=== PATIENT | female | born 1980 | race Caucasian/White ===

== ENCOUNTER 2016-11-24 00:33 | Emergency (ER) | payer SELFPAY ==
[2016-11-24] MEDS ORDERED: ACETAMINOPHEN 325 MG TAB As Ordered ONE (01:22)
[2016-11-24] MEDS ORDERED: predniSONE 20 MG TAB As Ordered ONE (01:22)
[2016-11-24] MEDS ORDERED: IPRATROPIUM 0.5MG/ALBUTEROL 2.5MG INH SOL UD 3ML (DUONEB)(J7620) As Ordered ONE (01:31)
[2016-11-24] MEDS ORDERED: KETOROLAC 30 MG/ML VIAL (J1885) As Ordered ONE (01:33)
[2016-11-24] MEDS ORDERED: AZITHROMYCIN 250 MG TAB As Ordered ONE (01:56)
--- NOTE | 2016-11-24 03:07 | EDDOCDS ---
Nurse's Notes [facility] Name: Rosario Amin Age: 36 yrs Sex: Female : 1980 Arrival Date: 11/24/2016 Time: 00:33 Bed I2 / M2 Private MD: Diagnosis: Acute sinusitis;Acute bronchitis;Headache-Acute Presentation: 11/24 00:50 Presenting complaint: Patient states: Shortness of breath started this morning. Did not kmg1 use albuterol. Cough productive for pale yellow mucus. Pain in left axilla area which she has had before and was told it's a "muscle spasm." Weak and ill feeling. Suicide/Homicide risk assessment- the patient denies having any suicidal and/or homicidal ideations and does not present with any other emotional, behavioral or mental health complaints. 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 Transition of care: patient was not received from another setting of care. 00:50 Acuity: WERNER Level 3 [facility] [place] Method Of Arrival: Walkin/[place] [facility] [place] Adult Sepsis Screening: The patient does not have new or worsening altered mentation. lf1 Patient's respiratory rate is less than 22. Systolic blood pressure is greater than 100. Patient has a qSOFA score of 0- Negative Sepsis Screen. Triage Assessment: 00:53 General: Appears in no apparent distress, comfortable, Behavior is appropriate for age, kmg1 cooperative, pleasant. Pain: Location: muscles, left axilla and headache Pain currently is 8 out of 10 on a pain scale. Quality of pain is described as aching. Pt Declines HIV testing. EENT: Reports nasal congestion. Respiratory: Onset: The symptoms/episode began/occurred gradually, Airway is patent Respiratory effort is even, unlabored, Respiratory pattern is regular, symmetrical. 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 albuterol sulfate 90 mcg/actuation Inhl HFAA 2 puffs every 4-6 hours (Last dose: Unknown) - PMHx: Anxiety; Depression; Asthma; Migraine Headaches; - PSHx: Tubal ligation; D & C; - Social history: Smoking status: Patient uses tobacco products, light tobacco smoker. No barriers to communication noted, The patient speaks fluent Urdu, Speaks appropriately for age. - : The pt / caregiver states he / she is not on anticoagulants. Home medication list is obtained from the patient. - Exposure Risk Screening:: None identified. - Family history: Not pertinent. Screenin:16 Screening information is obtained from the patient. Fall risk: No risks identified. lf1 Assistance ADL's: requires no assistance with activities of daily living. Abuse/DV Screen: The patient / caregiver reports he/she is: not in a situation that causes fear, pain or injury. Nutritional screening: No deficits noted. Advance Directives: Currently, there is no health care proxy. home support is adequate. Assessment: 01:16 Adult Sepsis Screening: The patient does not have new or worsening altered mentation. lf1 Patient's respiratory rate is less than 22. Systolic blood pressure is greater than 100. Patient has a qSOFA score of 0- Negative Sepsis Screen. General: Appears ill, Behavior is cooperative. Pain: Location: generalized body aches Pain currently is 8 out of 10 on a pain scale. Quality of pain is described as aching. Neurological: Level of Consciousness is awake, alert. EENT: Reports nasal congestion. Cardiovascular: Chest pain is denied. Respiratory: Respiratory effort is even, unlabored, Respiratory pattern is regular, Breath sounds are diminished Reports shortness of breath cough that is pain with cough pain with movement the patient has mild shortness of breath. GI: Denies nausea, vomiting. : No deficits noted. Derm: No deficits noted. Injury Description: No known injury. 02:00 General: Appears in no apparent distress. Neurological: Level of Consciousness is lf1 awake, alert. Respiratory: Respiratory effort is even, unlabored, Reports shortness of breath cough that is. 03:04 General: Appears comfortable, Behavior is cooperative. Pain: Location: achiness in legs lf1 Pain currently is 4 out of 10 on a pain scale. Neurological: Level of Consciousness is awake, alert, Oriented to person, place, time. Cardiovascular: No deficits noted. Respiratory: Respiratory effort is even, unlabored, Reports cough that is. GI: Denies nausea, vomiting. Vital Signs: 00:53 BP 138 / 91; Pulse 106; Resp 18; Temp 99(O); Pulse Ox 100% on R/A; Weight 55.79 kg (R); kmg1 Height 5 ft. 4 in. (162.56 cm) (R); Pain 8/10; 02:20 BP 129 / 73; Pulse 95; Resp 20; Temp 97.2(O); Pulse Ox 100% on R/A; Pain 0/10; jmv 00:53 Body Mass Index 21.11 (55.79 kg, 162.56 cm) km Vitals: 00:53 Log In Time: November 24, 2016 at 00:35. km 01:21 Strep Screen is obtained and tested: Negative, a GATSNEG culture is ordered in [place] [id number] and sent. ED Course: 00:35 Patient visited by Jonna Costa Reg. hs2 00:35 Patient moved to Waiting hs2 00:50 Patient moved to Triage 1 km 00:52 Triage Initiated km 00:53 Kaur Edge PA-C is PHCP. ef1 00:53 Emery Soto DO is Attending Physician. ef1 00:59 Kerri Stallings,YOEL is Primary Nurse. kmg1 00:59 Patient moved to 10 kmg1 01:01 Patient visited by Kaur Edge PA-C. ef1 01:08 Patient moved to I2 / M2 ef1 01:16 The patient / caregiver is instructed regarding the plan of care and ED course. lf1 01:16 -Influenza A&B Rapid Antigen - Nose Sent. lf1 01:31 Patient visited by Kaur Edge PA-C. ef1 01:52 Patient visited by Kaur Edge PA-C. ef1 02:19 Patient visited by Kaur Edge PA-C. ef1 02:21 Patient visited by Hammad Perales PCA. jmv 02:23 [facility] is Referral Physician. ef1 03:05 No IV's were initiated during this patient's visit. No procedures done that [facility] assistance. Administered Medications: 01:26 Drug: Acetaminophen 975 mg [acetaminophen 325 mg tablet (3 tabs)] Route: PO; lf1 01:26 Drug: predniSONE 60 mg [prednisone 20 mg tablet (3 tabs)] Route: PO; lf1 01:29 Drug: Albuterol-Ipratropium 1 neb [ipratropium-albuterol 0.5 mg-3 mg(2.5 mg base)/3 mL bb3 nebulization soln (1 neb)] Route: Nebulizer; 01:44 Follow up: small change in aeration throughout. Lung sounds are coarse. Pt had a bb3 spontaneous productive cough with a moderate amount of mucoid yellow green sputum. No adverse reaction to neb tx. 01:29 Drug: Albuterol-Ipratropium 1 neb [ipratropium-albuterol 0.5 mg-3 mg(2.5 mg base)/3 mL bb3 nebulization soln (1 neb)] Route: Nebulizer; 01:38 Drug: ketorolac 60 mg [ketorolac 30 mg/mL (1 mL) injection solution (2 mL)] Route: IM; ka4 Site: right gluteus; 03:06 Follow up: Response: Pain is decreased lf1 01:58 Drug: azithromycin 500 mg [azithromycin 250 mg tablet (2 tabs)] Route: PO; lf1 03:06 Follow up: Response: Pt left department before re-evaluation is appropriate lf1 01:59 Drug: Albuterol-Ipratropium 1 neb [ipratropium-albuterol 0.5 mg-3 mg(2.5 mg base)/3 mL bb3 nebulization soln (1 neb)] Route: Nebulizer; 02:18 Follow up: lung sounds remain the same as previous assessment. Pt denies any SOB past bb3 baseline. Pt had slight tremors at end of third tx Intake: RT: 01:28 Oxygen is room air. Respiratory: Respiratory effort is even, unlabored, Respiratory bb3 pattern is regular symmetrical, Breath sounds are coarse bilaterally. Breath sounds are diminished Reports shortness of breath on exertion cough that is productive being a current smoker. Approx half ppd. Pt states she uses inhaler prn. Respiratory: pre tx pulse 94. 01:29 Initial Med Neb Given as ordered Patient was instructed and evaluated on procedure bb3 Subsequent Med Neb Given as ordered Patient was reinforced on procedure. 01:43 Respiratory: small change in aeration throughout. Lung sounds are coarse. Pt had a bb3 spontaneous productive cough with a moderate amount of mucoid yellow green sputum. No adverse reaction to neb tx. 02:00 Subsequent Med Neb Given as ordered Patient was reinforced on procedure. bb3 02:17 Respiratory: lung sounds remain the same as previous assessment. Pt denies any SOB past bb3 baseline. Pt had slight tremors at end of third tx. Order Results: Lab Order: -Influenza A&B Rapid Antigen - Nose; SPEC'M 11/24/16 01:15 Test: INFLUENZA A RAPID SCR by ICA; Value: INFLUENZA A RESULTS NEGATIVE; Status: F Test: INFLUENZA A RAPID SCR by ICA; Value: Comments:; Status: F Test: INFLUENZA B RAPID SCR by ICA; Value: INFLUENZA B RESULTS NEGATIVE; Status: F Test Note: ; The Influenza test is a direct rapid immunoassay for the qualitative detection of Influenza viral antigen. Cell culture (Viral Culture) testing should be considered to confirm NEGATIVE results and to assist in detecting other viruses that can provide similar clinical symptoms. Please contact the lab within 24 hours ([phone]) if confirmatory testing is desired. Outcome: 02:23 Discharge ordered by Provider. ef1 03:05 Discharge Assessment: Patient awake, alert and oriented x 3. No cognitive and/or lf1 functional deficits noted. Patient verbalized understanding of disposition instructions. Patient awake and alert. Oriented to person, place and time. Patient verbalized understanding of disposition instructions. Patient has no functional deficits. patient administered narcotics - no. The following High Risk Discharge criteria are identified: None. Discharged to home ambulatory, with significant other. Condition: improved. Discharge instructions given to patient, Instructed on discharge instructions, follow up and referral plans. medication usage, Demonstrated understanding of instructions, medications, Pt was receptive of discharge instructions/ teaching. Prescriptions given X 5. No special radiology studies were completed. Property :Personal belongings accompany Pt. 03:07 Patient left the ED. lf1 Signatures: Iris Abbott, RN RN kmg1 Landy HarmanRN RN lf1 Kaur Edge PA-C PA-Ian ef1 Rusty Fraga bb3 Tracy Mello,ENGINEERING INSTRUCTOR ENGINEERING INSTRUCTOR ka4 Jonna Costa, Reg Reg hs2 Perales, Hammad, STONE POLISHER HAND STONE POLISHER HAND jmv MTDD
--- NOTE | 2016-11-24 03:07 | EDDOCDS ---
Physician Documentation [facility] Name: Rosario Amin Age: 36 yrs Sex: Female : 1980 Arrival Date: 11/24/2016 Time: 00:33 Bed I2 / M2 Private MD: Disposition: 11/24/16 02:23 Discharged to Home/Self Care. Impression: Acute sinusitis, Acute bronchitis, Headache - Acute. - Condition is Stable. - Discharge Instructions: General Headache Without Cause, Sinusitis, Bkuo-[id number], Acute Bronchitis, Furu-yi-Gybc. - Prescriptions for Prednisone 20 mg Oral Tablet - take 3 tablet by ORAL route once daily for 5 days; 15 tablet. Claritin 10 mg Oral Tablet - take 1 tablet by ORAL route once daily As needed; 30 tablet. Zithromax 250 mg Oral Tablet - take 1 tablet by ORAL route once daily start tomorrow; 4 tablet. Mucinex 600 mg - take 1 tablet by ORAL route 2 times per day; 30 tablet. Albuterol Sulfate 90 mcg/actuation Inhalation HFA Aerosol Inhaler - inhale 2 puff by INHALATION route every 4 hours As needed; 1 Inhaler. - Referral List Call for Appointment, Medication Reconciliation, Local Pharmacy Hours form. - Follow up: Emergency Department; Reason: Worsening of conditions. [facility]: [facility] ; When: 1 - 2 days; Reason: Recheck today's complaints, Continuance of care. - Problem is new. - Symptoms have improved. Historical: - Allergies: Keflex (Hives); - Home Meds: 1. albuterol sulfate 90 mcg/actuation Inhl HFAA 2 puffs every 4-6 hours (Last dose: Unknown) - PMHx: Anxiety; Depression; Asthma; Migraine Headaches; - PSHx: Tubal ligation; D & C; - Social history: Smoking status: Patient uses tobacco products, light tobacco smoker. No barriers to communication noted, The patient speaks fluent Turkish, Speaks appropriately for age. - : The pt / caregiver states he / she is not on anticoagulants. Home medication list is obtained from the patient. - Exposure Risk Screening:: None identified. - Family history: Not pertinent. VP ANALYSIS: 11/24 00:53 LMP 11/24/2016 kmg1 Vital Signs: 00:53 BP 138 / 91; Pulse 106; Resp 18; Temp 99(O); Pulse Ox 100% on R/A; Weight 55.79 kg / kmg1 123 lbs (R); Height 5 ft. 4 in. (162.56 cm) (R); Pain 8/10; 02:20 BP 129 / 73; Pulse 95; Resp 20; Temp 97.2(O); Pulse Ox 100% on R/A; Pain 0/10; jmv 00:53 Body Mass Index 21.11 (55.79 kg, 162.56 cm) km MDM: 01:08 Albuterol-Ipratropium 1 neb Nebulizer every 20 minutes x3 ordered. ef1 01:08 Call Respiratory ordered. ef1 01:08 Strep Screen, Nursing ordered. ef1 01:08 Obtain sample by nasopharyngeal swab ordered. ef1 01:08 Chest, 2 View (pa\E\lat) Ordered. EDMS 01:08 -Influenza A&B Rapid Antigen - Nose Ordered. EDMS 01:09 Call Respiratory complete. ka4 01:14 Acetaminophen Tablet 975 mg PO once ordered. ef1 01:19 predniSONE 60 mg PO once; administer with food or milk ordered. ef1 01:21 GATS (NEGATIVE STREP SCREEN) Ordered. EDMS 01:29 ketorolac 60 mg IM once ordered. ef1 01:50 -Influenza A&B Rapid Antigen - Nose Reviewed. ef1 01:52 azithromycin 500 mg PO once ordered. ef1 02:47 Financial registration complete. pm4 Administered Medications: 01:26 Drug: Acetaminophen 975 mg [acetaminophen 325 mg tablet (3 tabs)] Route: PO; lf1 01:26 Drug: predniSONE 60 mg [prednisone 20 mg tablet (3 tabs)] Route: PO; lf1 01:29 Drug: Albuterol-Ipratropium 1 neb [ipratropium-albuterol 0.5 mg-3 mg(2.5 mg base)/3 mL bb3 nebulization soln (1 neb)] Route: Nebulizer; 01:44 Follow up: small change in aeration throughout. Lung sounds are coarse. Pt had a bb3 spontaneous productive cough with a moderate amount of mucoid yellow green sputum. No adverse reaction to neb tx. 01:29 Drug: Albuterol-Ipratropium 1 neb [ipratropium-albuterol 0.5 mg-3 mg(2.5 mg base)/3 mL bb3 nebulization soln (1 neb)] Route: Nebulizer; 01:38 Drug: ketorolac 60 mg [ketorolac 30 mg/mL (1 mL) injection solution (2 mL)] Route: IM; ka4 Site: right gluteus; 03:06 Follow up: Response: Pain is decreased lf1 01:58 Drug: azithromycin 500 mg [azithromycin 250 mg tablet (2 tabs)] Route: PO; lf1 03:06 Follow up: Response: Pt left department before re-evaluation is appropriate lf1 01:59 Drug: Albuterol-Ipratropium 1 neb [ipratropium-albuterol 0.5 mg-3 mg(2.5 mg base)/3 mL bb3 nebulization soln (1 neb)] Route: Nebulizer; 02:18 Follow up: lung sounds remain the same as previous assessment. Pt denies any SOB past bb3 baseline. Pt had slight tremors at end of third tx Signatures: Dispatcher [employer] EDIris Sims, RN RN kmg1 Landy Harman,RN RN lf1 Kaur Edge, PA-C PA-C ef1 Tracy Mello,RELIEF SALESPERSON RELIEF SALESPERSON ka4 Tristan Guzman, Reg Reg pm4 Rusty Fraga bb3 MTDD
--- NOTE | 2016-11-24 07:30 | REP ---
Clinical: Acute cough . Comparison: None . Technique: PA and lateral. Findings: The mediastinum and cardiac silhouette are normal. The lung moreno are clear and without acute consolidation, effusion, or pneumothorax. The skeletal structures are intact and normal. Impression: 1. No acute cardiopulmonary process. Signed by Xavier Sarabia MD 11/24/2016 01:43 A
--- NOTE | 2016-11-26 04:07 | EDDOCDS ---
Nurse's Notes [facility] Name: Rosario Amin Age: 36 yrs Sex: Female : 1980 Arrival Date: 11/24/2016 Time: 00:33 Bed I2 / M2 Private MD: Diagnosis: Acute sinusitis;Acute bronchitis;Headache-Acute Presentation: 11/24 00:50 Presenting complaint: Patient states: Shortness of breath started this morning. Did not kmg1 use albuterol. Cough productive for pale yellow mucus. Pain in left axilla area which she has had before and was told it's a "muscle spasm." Weak and ill feeling. Suicide/Homicide risk assessment- the patient denies having any suicidal and/or homicidal ideations and does not present with any other emotional, behavioral or mental health complaints. Status: Patient is not a auto body service mechanic or dependent. Transition of care: patient was not received from another setting of care. 00:50 Acuity: WERNER Level 3 [facility] 00:50 Method Of Arrival: Walkin/Carried/Asstd [facility] 03:06 Adult Sepsis Screening: The patient does not have new or worsening altered mentation. lf1 Patient's respiratory rate is less than 22. Systolic blood pressure is greater than 100. Patient has a qSOFA score of 0- Negative Sepsis Screen. Triage Assessment: 00:53 General: Appears in no apparent distress, comfortable, Behavior is appropriate for age, kmg1 cooperative, pleasant. Pain: Location: muscles, left axilla and headache Pain currently is 8 out of 10 on a pain scale. Quality of pain is described as aching. Pt Declines HIV testing. EENT: Reports nasal congestion. Respiratory: Onset: The symptoms/episode began/occurred gradually, Airway is patent Respiratory effort is even, unlabored, Respiratory pattern is regular, symmetrical. 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 albuterol sulfate 90 mcg/actuation Inhl HFAA 2 puffs every 4-6 hours (Last dose: Unknown) - PMHx: Anxiety; Depression; Asthma; Migraine Headaches; - PSHx: Tubal ligation; D & C; - Social history: Smoking status: Patient uses tobacco products, light tobacco smoker. No barriers to communication noted, The patient speaks fluent Frisian, Speaks appropriately for age. - : The pt / caregiver states he / she is not on anticoagulants. Home medication list is obtained from the patient. - Exposure Risk Screening:: None identified. - Family history: Not pertinent. Screenin:16 Screening information is obtained from the patient. Fall risk: No risks identified. lf1 Assistance ADL's: requires no assistance with activities of daily living. Abuse/DV Screen: The patient / caregiver reports he/she is: not in a situation that causes fear, pain or injury. Nutritional screening: No deficits noted. Advance Directives: Currently, there is no health care proxy. home support is adequate. Assessment: 01:16 Adult Sepsis Screening: The patient does not have new or worsening altered mentation. lf1 Patient's respiratory rate is less than 22. Systolic blood pressure is greater than 100. Patient has a qSOFA score of 0- Negative Sepsis Screen. General: Appears ill, Behavior is cooperative. Pain: Location: generalized body aches Pain currently is 8 out of 10 on a pain scale. Quality of pain is described as aching. Neurological: Level of Consciousness is awake, alert. EENT: Reports nasal congestion. Cardiovascular: Chest pain is denied. Respiratory: Respiratory effort is even, unlabored, Respiratory pattern is regular, Breath sounds are diminished Reports shortness of breath cough that is pain with cough pain with movement the patient has mild shortness of breath. GI: Denies nausea, vomiting. : No deficits noted. Derm: No deficits noted. Injury Description: No known injury. 02:00 General: Appears in no apparent distress. Neurological: Level of Consciousness is lf1 awake, alert. Respiratory: Respiratory effort is even, unlabored, Reports shortness of breath cough that is. 03:04 General: Appears comfortable, Behavior is cooperative. Pain: Location: achiness in legs lf1 Pain currently is 4 out of 10 on a pain scale. Neurological: Level of Consciousness is awake, alert, Oriented to person, place, time. Cardiovascular: No deficits noted. Respiratory: Respiratory effort is even, unlabored, Reports cough that is. GI: Denies nausea, vomiting. Vital Signs: 00:53 BP 138 / 91; Pulse 106; Resp 18; Temp 99(O); Pulse Ox 100% on R/A; Weight 55.79 kg (R); kmg1 Height 5 ft. 4 in. (162.56 cm) (R); Pain 8/10; 02:20 BP 129 / 73; Pulse 95; Resp 20; Temp 97.2(O); Pulse Ox 100% on R/A; Pain 0/10; jmv 00:53 Body Mass Index 21.11 (55.79 kg, 162.56 cm) km Vitals: 00:53 Log In Time: November 24, 2016 at 00:35. kmg1 01:21 Strep Screen is obtained and tested: Negative, a GATSNEG culture is ordered in [place] [id number] and sent. ED Course: 00:35 Patient visited by Jonna Costa Reg. hs2 00:35 Patient moved to Waiting hs2 00:50 Patient moved to Triage 1 km 00:52 Triage Initiated kmg1 00:53 Kaur Edge PA-C is PHCP. ef1 00:53 Emery Soto DO is Attending Physician. ef1 00:59 Kerri Stallings,YOEL is Primary Nurse. kmg1 00:59 Patient moved to 10 kmg1 01:01 Patient visited by Kaur Edge PA-C. ef1 01:08 Patient moved to I2 / M2 ef1 01:16 The patient / caregiver is instructed regarding the plan of care and ED course. lf1 01:16 -Influenza A&B Rapid Antigen - Nose Sent. lf1 01:31 Patient visited by Kaur Edge PA-C. ef1 01:52 Patient visited by Kaur Edge PA-C. ef1 02:19 Patient visited by Kaur Edge PA-C. ef1 02:21 Patient visited by Hammad Perales PCA. jmv 02:23 [facility] is Referral Physician. ef1 03:05 No IV's were initiated during this patient's visit. No procedures done that require [facility] assistance. 04:10 [facility] Payment Agreement was scanned into [employer] and attached to record. hs2 07:41 Chest, 2 View (pa\\E\\lat) Returned. EDMS 12:03 T-Sheet-- Draft Copy was scanned into [employer] and attached to record. gb 12:03 Radiology Report was scanned into [employer] and attached to record. gb Administered Medications: 01:26 Drug: Acetaminophen 975 mg [acetaminophen 325 mg tablet (3 tabs)] Route: PO; lf1 01:26 Drug: predniSONE 60 mg [prednisone 20 mg tablet (3 tabs)] Route: PO; lf1 01:29 Drug: Albuterol-Ipratropium 1 neb [ipratropium-albuterol 0.5 mg-3 mg(2.5 mg base)/3 mL bb3 nebulization soln (1 neb)] Route: Nebulizer; 01:44 Follow up: small change in aeration throughout. Lung sounds are coarse. Pt had a bb3 spontaneous productive cough with a moderate amount of mucoid yellow green sputum. No adverse reaction to neb tx. 01:29 Drug: Albuterol-Ipratropium 1 neb [ipratropium-albuterol 0.5 mg-3 mg(2.5 mg base)/3 mL bb3 nebulization soln (1 neb)] Route: Nebulizer; 01:38 Drug: ketorolac 60 mg [ketorolac 30 mg/mL (1 mL) injection solution (2 mL)] Route: IM; ka4 Site: right gluteus; 03:06 Follow up: Response: Pain is decreased lf1 01:58 Drug: azithromycin 500 mg [azithromycin 250 mg tablet (2 tabs)] Route: PO; lf1 03:06 Follow up: Response: Pt left department before re-evaluation is appropriate lf1 01:59 Drug: Albuterol-Ipratropium 1 neb [ipratropium-albuterol 0.5 mg-3 mg(2.5 mg base)/3 mL bb3 nebulization soln (1 neb)] Route: Nebulizer; 02:18 Follow up: lung sounds remain the same as previous assessment. Pt denies any SOB past bb3 baseline. Pt had slight tremors at end of third tx Intake: RT: 01:28 Oxygen is room air. Respiratory: Respiratory effort is even, unlabored, Respiratory bb3 pattern is regular symmetrical, Breath sounds are coarse bilaterally. Breath sounds are diminished Reports shortness of breath on exertion cough that is productive being a current smoker. Approx half ppd. Pt states she uses inhaler prn. Respiratory: pre tx pulse 94. 01:29 Initial Med Neb Given as ordered Patient was instructed and evaluated on procedure bb3 Subsequent Med Neb Given as ordered Patient was reinforced on procedure. 01:43 Respiratory: small change in aeration throughout. Lung sounds are coarse. Pt had a bb3 spontaneous productive cough with a moderate amount of mucoid yellow green sputum. No adverse reaction to neb tx. 02:00 Subsequent Med Neb Given as ordered Patient was reinforced on procedure. bb3 02:17 Respiratory: lung sounds remain the same as previous assessment. Pt denies any SOB past bb3 baseline. Pt had slight tremors at end of third tx. Order Results: Lab Order: -Influenza A&B Rapid Antigen - Nose; SPEC'M 11/24/16 01:15 Test: INFLUENZA A RAPID SCR by ICA; Value: INFLUENZA A RESULTS NEGATIVE; Status: F Test: INFLUENZA A RAPID SCR by ICA; Value: Comments:; Status: F Test: INFLUENZA B RAPID SCR by ICA; Value: INFLUENZA B RESULTS NEGATIVE; Status: F Test Note: ; The Influenza test is a direct rapid immunoassay for the qualitative detection of Influenza viral antigen. Cell culture (Viral Culture) testing should be considered to confirm NEGATIVE results and to assist in detecting other viruses that can provide similar clinical symptoms. Please contact the lab within 24 hours ([phone]) if confirmatory testing is desired. Radiology Order: Chest, 2 View (pa\\E\\lat) Test: Chest, 2 View (pa\\E\\lat) REASON FOR EXAMINATION: Cough; Clinical: Acute cough .; ; Comparison: None .; ; Technique: PA and lateral.; ; Findings:; The mediastinum and cardiac silhouette are normal. The lung moreno are clear and; without acute consolidation, effusion, or pneumothorax. The skeletal structures; are intact and normal.; ; Impression:; 1. No acute cardiopulmonary process.; ; ; Signed by; Xavier Sarabia MD 11/24/2016 01:43 A; Outcome: 02:23 Discharge ordered by Provider. ef1 03:05 Discharge Assessment: Patient awake, alert and oriented x 3. No cognitive and/or lf1 functional deficits noted. Patient verbalized understanding of disposition instructions. Patient awake and alert. Oriented to person, place and time. Patient verbalized understanding of disposition instructions. Patient has no functional deficits. patient administered narcotics - no. The following High Risk Discharge criteria are identified: None. Discharged to home ambulatory, with significant other. Condition: improved. Discharge instructions given to patient, Instructed on discharge instructions, follow up and referral plans. medication usage, Demonstrated understanding of instructions, medications, Pt was receptive of discharge instructions/ teaching. Prescriptions given X 5. No special radiology studies were completed. Property :Personal belongings accompany Pt. 03:07 Patient left the ED. lf1 Signatures: Dispatcher [employer] EDMS Iris Abbott, RN RN kmg1 Izzy Foss, Reg Reg gb Landy Harman RN RN lf1 Kaur Edge, PA-C PA-C ef1 Rusty Fraga bb3 Tracy Mello LPN TRADING MANAGER ka4 Jonna Costa, Reg Reg hs2 Hammad Perales, ISMAEL BUILDING CUSTODIAL SUPERVISOR jmv Chart Complete MTDD
--- NOTE | 2016-11-26 04:07 | EDDOCDS ---
Physician Documentation [facility] Name: Rosario Amin Age: 36 yrs Sex: Female : 1980 Arrival Date: 11/24/2016 Time: 00:33 Bed I2 / M2 Private MD: Disposition: 11/24/16 02:23 Discharged to Home/Self Care. Impression: Acute sinusitis, Acute bronchitis, Headache - Acute. - Condition is Stable. - Discharge Instructions: General Headache Without Cause, Sinusitis, Fyel-rk-Drtl, Acute Bronchitis, Vgjs-[id number]-Haoh. - Prescriptions for Prednisone 20 mg Oral Tablet - take 3 tablet by ORAL route once daily for 5 days; 15 tablet. Claritin 10 mg Oral Tablet - take 1 tablet by ORAL route once daily As needed; 30 tablet. Zithromax 250 mg Oral Tablet - take 1 tablet by ORAL route once daily start tomorrow; 4 tablet. Mucinex 600 mg - take 1 tablet by ORAL route 2 times per day; 30 tablet. Albuterol Sulfate 90 mcg/actuation Inhalation HFA Aerosol Inhaler - inhale 2 puff by INHALATION route every 4 hours As needed; 1 Inhaler. - Referral List Call for Appointment, Medication Reconciliation, Local Pharmacy Hours form. - Follow up: Emergency Department; Reason: Worsening of conditions. [facility]: [facility] ; When: 1 - 2 days; Reason: Recheck today's complaints, Continuance of care. - Problem is new. - Symptoms have improved. Historical: - Allergies: Keflex (Hives); - Home Meds: 1. albuterol sulfate 90 mcg/actuation Inhl HFAA 2 puffs every 4-6 hours (Last dose: Unknown) - PMHx: Anxiety; Depression; Asthma; Migraine Headaches; - PSHx: Tubal ligation; D & C; - Social history: Smoking status: Patient uses tobacco products, light tobacco smoker. No barriers to communication noted, The patient speaks fluent Occitan, Speaks appropriately for age. - : The pt / caregiver states he / she is not on anticoagulants. Home medication list is obtained from the patient. - Exposure Risk Screening:: None identified. - Family history: Not pertinent. 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 4 in. (162.56 cm) (R); Pain 8/10; 02:20 BP 129 / 73; Pulse 95; Resp 20; Temp 97.2(O); Pulse Ox 100% on R/A; Pain 0/10; jmv 00:53 Body Mass Index 21.11 (55.79 kg, 162.56 cm) km MDM: 01:08 Albuterol-Ipratropium 1 neb Nebulizer every 20 minutes x3 ordered. ef1 01:08 Call Respiratory ordered. ef1 01:08 Strep Screen, Nursing ordered. ef1 01:08 Obtain sample by nasopharyngeal swab ordered. ef1 01:08 Chest, 2 View (pa\E\lat) Ordered. EDMS 01:08 -Influenza A&B Rapid Antigen - Nose Ordered. EDMS 01:09 Call Respiratory complete. ka4 01:14 Acetaminophen Tablet 975 mg PO once ordered. ef1 01:19 predniSONE 60 mg PO once; administer with food or milk ordered. ef1 01:21 GATS (NEGATIVE STREP SCREEN) Ordered. EDMS 01:29 ketorolac 60 mg IM once ordered. ef1 01:50 -Influenza A&B Rapid Antigen - Nose Reviewed. ef1 01:52 azithromycin 500 mg PO once ordered. ef1 02:47 Financial registration complete. pm4 04:10 [facility] Payment Agreement was scanned into [employer] and attached to record. hs2 12:03 T-Sheet-- Draft Copy was scanned into [employer] and attached to record. gb 12:03 Radiology Report was scanned into [employer] and attached to record. gb Administered Medications: 01:26 Drug: Acetaminophen 975 mg [acetaminophen 325 mg tablet (3 tabs)] Route: PO; lf1 01:26 Drug: predniSONE 60 mg [prednisone 20 mg tablet (3 tabs)] Route: PO; lf1 01:29 Drug: Albuterol-Ipratropium 1 neb [ipratropium-albuterol 0.5 mg-3 mg(2.5 mg base)/3 mL bb3 nebulization soln (1 neb)] Route: Nebulizer; 01:44 Follow up: small change in aeration throughout. Lung sounds are coarse. Pt had a bb3 spontaneous productive cough with a moderate amount of mucoid yellow green sputum. No adverse reaction to neb tx. 01:29 Drug: Albuterol-Ipratropium 1 neb [ipratropium-albuterol 0.5 mg-3 mg(2.5 mg base)/3 mL bb3 nebulization soln (1 neb)] Route: Nebulizer; 01:38 Drug: ketorolac 60 mg [ketorolac 30 mg/mL (1 mL) injection solution (2 mL)] Route: IM; ka4 Site: right gluteus; 03:06 Follow up: Response: Pain is decreased lf1 01:58 Drug: azithromycin 500 mg [azithromycin 250 mg tablet (2 tabs)] Route: PO; lf1 03:06 Follow up: Response: Pt left department before re-evaluation is appropriate lf1 01:59 Drug: Albuterol-Ipratropium 1 neb [ipratropium-albuterol 0.5 mg-3 mg(2.5 mg base)/3 mL bb3 nebulization soln (1 neb)] Route: Nebulizer; 02:18 Follow up: lung sounds remain the same as previous assessment. Pt denies any SOB past bb3 baseline. Pt had slight tremors at end of third tx Signatures: Dispatcher [employer] EDMS Iris Abbott, RN RN kmg1 Izzy Foss, Reg Reg gb Landy HarmanRN RN lf1 Kaur Edge, PA-C PA-C ef1 Tracy Mello,MEDIC TECHNICIAN MEDIC TECHNICIAN ka4 Jonna Costa, Reg Reg hs2 Tristan Guzman, Reg Reg pm4 Rusty Fraga bb3 The chart was reviewed and I authenticate all verbal orders and agree with the evaluation and treatment provided.Attachments: 04:10 [facility] Payment Agreement hs2 12:03 T-Sheet-- Draft Copy gb Chart Complete MTDD
--- NOTE | 2016-11-26 04:07 | EDDOCDS ---
Physician Documentation [facility] Name: Rosario Amin Age: 36 yrs Sex: Female : 1980 Arrival Date: 11/24/2016 Time: 00:33 Bed I2 / M2 Private MD: Disposition: 11/24/16 02:23 Discharged to Home/Self Care. Impression: Acute sinusitis, Acute bronchitis, Headache - Acute. - Condition is Stable. - Discharge Instructions: General Headache Without Cause, Sinusitis, Yjee-ad-Wcve, Acute Bronchitis, Nkpb-jw-Oqhd. - Prescriptions for Prednisone 20 mg Oral Tablet - take 3 tablet by ORAL route once daily for 5 days; 15 tablet. Claritin 10 mg Oral Tablet - take 1 tablet by ORAL route once daily As needed; 30 tablet. Zithromax 250 mg Oral Tablet - take 1 tablet by ORAL route once daily start tomorrow; 4 tablet. Mucinex 600 mg - take 1 tablet by ORAL route 2 times per day; 30 tablet. Albuterol Sulfate 90 mcg/actuation Inhalation HFA Aerosol Inhaler - inhale 2 puff by INHALATION route every 4 hours As needed; 1 Inhaler. - Referral List Call for Appointment, Medication Reconciliation, Local Pharmacy Hours form. - Follow up: Emergency Department; Reason: Worsening of conditions. [facility]: [facility] ; When: 1 - 2 days; Reason: Recheck today's complaints, Continuance of care. - Problem is new. - Symptoms have improved. Historical: - Allergies: Keflex (Hives); - Home Meds: 1. albuterol sulfate 90 mcg/actuation Inhl HFAA 2 puffs every 4-6 hours (Last dose: Unknown) - PMHx: Anxiety; Depression; Asthma; Migraine Headaches; - PSHx: Tubal ligation; D & C; - Social history: Smoking status: Patient uses tobacco products, light tobacco smoker. No barriers to communication noted, The patient speaks fluent Yi, Speaks appropriately for age. - : The pt / caregiver states he / she is not on anticoagulants. Home medication list is obtained from the patient. - Exposure Risk Screening:: None identified. - Family history: Not pertinent. 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 4 in. (162.56 cm) (R); Pain 8/10; 02:20 BP 129 / 73; Pulse 95; Resp 20; Temp 97.2(O); Pulse Ox 100% on R/A; Pain 0/10; jmv 00:53 Body Mass Index 21.11 (55.79 kg, 162.56 cm) km MDM: 01:08 Albuterol-Ipratropium 1 neb Nebulizer every 20 minutes x3 ordered. ef1 01:08 Call Respiratory ordered. ef1 01:08 Strep Screen, Nursing ordered. ef1 01:08 Obtain sample by nasopharyngeal swab ordered. ef1 01:08 Chest, 2 View (pa\E\lat) Ordered. EDMS 01:08 -Influenza A&B Rapid Antigen - Nose Ordered. EDMS 01:09 Call Respiratory complete. ka4 01:14 Acetaminophen Tablet 975 mg PO once ordered. ef1 01:19 predniSONE 60 mg PO once; administer with food or milk ordered. ef1 01:21 GATS (NEGATIVE STREP SCREEN) Ordered. EDMS 01:29 ketorolac 60 mg IM once ordered. ef1 01:50 -Influenza A&B Rapid Antigen - Nose Reviewed. ef1 01:52 azithromycin 500 mg PO once ordered. ef1 02:47 Financial registration complete. pm4 04:10 [facility] Payment Agreement was scanned into [employer] and attached to record. hs2 12:03 T-Sheet-- Draft Copy was scanned into [employer] and attached to record. gb 12:03 Radiology Report was scanned into [employer] and attached to record. gb Administered Medications: 01:26 Drug: Acetaminophen 975 mg [acetaminophen 325 mg tablet (3 tabs)] Route: PO; lf1 01:26 Drug: predniSONE 60 mg [prednisone 20 mg tablet (3 tabs)] Route: PO; lf1 01:29 Drug: Albuterol-Ipratropium 1 neb [ipratropium-albuterol 0.5 mg-3 mg(2.5 mg base)/3 mL bb3 nebulization soln (1 neb)] Route: Nebulizer; 01:44 Follow up: small change in aeration throughout. Lung sounds are coarse. Pt had a bb3 spontaneous productive cough with a moderate amount of mucoid yellow green sputum. No adverse reaction to neb tx. 01:29 Drug: Albuterol-Ipratropium 1 neb [ipratropium-albuterol 0.5 mg-3 mg(2.5 mg base)/3 mL bb3 nebulization soln (1 neb)] Route: Nebulizer; 01:38 Drug: ketorolac 60 mg [ketorolac 30 mg/mL (1 mL) injection solution (2 mL)] Route: IM; ka4 Site: right gluteus; 03:06 Follow up: Response: Pain is decreased lf1 01:58 Drug: azithromycin 500 mg [azithromycin 250 mg tablet (2 tabs)] Route: PO; lf1 03:06 Follow up: Response: Pt left department before re-evaluation is appropriate lf1 01:59 Drug: Albuterol-Ipratropium 1 neb [ipratropium-albuterol 0.5 mg-3 mg(2.5 mg base)/3 mL bb3 nebulization soln (1 neb)] Route: Nebulizer; 02:18 Follow up: lung sounds remain the same as previous assessment. Pt denies any SOB past bb3 baseline. Pt had slight tremors at end of third tx Signatures: Dispatcher [employer] EDMS Iris Abbott, RN RN kmg1 Izzy Foss, Reg Reg gb Landy HarmanRN RN lf1 Kaur Edge, PA-C PA-C ef1 Tracy Mello,ENVIRONMENTAL SERVICES AIDE ENVIRONMENTAL SERVICES AIDE ka4 Jonna Costa, Reg Reg hs2 Tristan Guzman, Reg Reg pm4 Rusty Fraga bb3 The chart was reviewed and I authenticate all verbal orders and agree with the evaluation and treatment provided.Attachments: 04:10 [facility] Payment Agreement hs2 12:03 T-Sheet-- Draft Copy gb Chart Complete MTDD
== END 2016-11-24 03:07 | disposition home or self-care (01) ==
LOC: M ED 00:33
DX: J01.90 Acute sinusitis, unspecified (principal); J20.9 Acute bronchitis, unspecified; G43.909 Migraine, unspecified, not intractable, without status migrainosus; F41.9 Anxiety disorder, unspecified; F32.9 Major depressive disorder, single episode, unspecified; J45.909 Unspecified asthma, uncomplicated; F17.210 Nicotine dependence, cigarettes, uncomplicated; Z79.51 Long term (current) use of inhaled steroids; Z88.1 Allergy status to other antibiotic agents
CPT/HCPCS: 71020; 87804; 87880; 94640; 96372; 99284; J1885

== ENCOUNTER 2016-12-08 09:06 | Emergency (ER) | payer SELFPAY ==
--- NOTE | 2016-12-08 09:31 | EDDOCDS ---
Physician Documentation [facility] Name: Rosario Amin Age: 36 yrs Sex: Female : 1980 Arrival Date: 12/08/2016 Time: 09:06 Bed Triage 1 Private MD: NO PRIMARY PHYSICIAN, . Disposition: 12/08/16 09:23 Discharged to Home/Self Care. Impression: Cutaneous abscess of buttock - left. - Condition is Stable. - Discharge Instructions: Abscess. - Prescriptions for Leslie 5- 325 mg Oral Tablet - take 1 tablet by ORAL route every 6 hours As needed MDD: 4 tabs; 20 tablet. Bactrim DS 800- 160 mg Oral Tablet - take 1 tablet by ORAL route every 12 hours for 10 days; 20 tablet. - Medication Reconciliation, Local Pharmacy Hours form. - Follow up: Emergency Department; When: As needed; Reason: Worsening of conditions. Follow up: [facility]; When: Call to arrange an appointment; Reason: Recheck today's complaints, Continuance of care, To establish care. - Problem is new. - Symptoms are unchanged. Historical: - Allergies: Keflex (Hives); - Home Meds: 1. none - PMHx: Anxiety; Asthma; Depression; Migraine Headaches; - PSHx: Tubal ligation; D & C; - Social history: Smoking status: No barriers to communication noted, The patient speaks fluent Bolivian, Speaks appropriately for age, Smoking status: Patient uses tobacco products, light tobacco smoker. - Family history: Not pertinent. - : The pt / caregiver states he / she is not on anticoagulants. Home medication list is obtained from the patient. - Exposure Risk Screening:: None identified. 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 4 in. (162.56 cm) (R); Pain 9/10; 09:06 Body Mass Index 21.11 (55.79 kg, 162.56 cm) elp MDM: 09:22 Wound Culture & GS - Other Unlisted Source: left buttock abscess Ordered. EDMS Signatures: Dispatcher [employer] EDMS Kerri-Carlos,Arabella,RN RN ck1 Nelda GómezRN RN jo3 Saumya Boo PA-C PA-C dt4 MTDD
--- NOTE | 2016-12-08 09:31 | EDDOCDS ---
Nurse's Notes [facility] Name: Rosario Amin Age: 36 yrs Sex: Female : 1980 Arrival Date: 12/08/2016 Time: 09:06 Bed Triage 1 Private MD: NO PRIMARY PHYSICIAN, . Diagnosis: Cutaneous abscess of buttock-left Presentation: 12/08 09:10 Presenting complaint: Patient states: Has a "sore" in left buttock that pt has been jo3 draining and putting warm compresses on. Symptoms started Monday. Adult Sepsis Screening: The patient does not have new or worsening altered mentation. Patient's respiratory rate is less than 22. Systolic blood pressure is greater than 100. Patient has a qSOFA score of 0- Negative Sepsis Screen. Suicide/Homicide risk assessment- the patient denies having any suicidal and/or homicidal ideations and does not present with any other emotional, behavioral or mental health complaints. 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 Transition of care: patient was not received from another setting of care. 09:10 Acuity: WERNER Level 3 jo3 09:10 Method Of Arrival: Walkin/Carried/Asstd jo3 Triage Assessment: 09:12 General: Appears in no apparent distress. Pain: Pain currently is 9 out of 10 on a pain jo3 scale. HIV screening NA for this visit Offered previously. Neurological: Level of Consciousness is awake, alert, Oriented to person, place, time. Respiratory: No deficits noted. Airway is patent Respiratory effort is even, unlabored, Respiratory pattern is. 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 none - PMHx: Anxiety; Asthma; Depression; Migraine Headaches; - PSHx: Tubal ligation; D & C; - Social history: Smoking status: No barriers to communication noted, The patient speaks fluent Senegalese, Speaks appropriately for age, Smoking status: Patient uses tobacco products, light tobacco smoker. - Family history: Not pertinent. - : The pt / caregiver states he / she is not on anticoagulants. Home medication list is obtained from the patient. - Exposure Risk Screening:: None identified. Screenin:29 Screening information is obtained from the patient. Fall risk: No risks identified. ck1 Assistance ADL's: requires no assistance with activities of daily living. Abuse/DV Screen: The patient / caregiver reports he/she is: not in a situation that causes fear, pain or injury. Nutritional screening: No deficits noted. Advance Directives: Currently, there is no health care proxy. home support is adequate. Assessment: 09:30 General: Appears in no apparent distress, Behavior is appropriate for age, cooperative. ck1 Pain: Location: left gluteus cynthia Pain currently is 9 out of 10 on a pain scale. Respiratory: No deficits noted. Derm: Skin is normal. Musculoskeletal: Circulation, motion, and sensation intact Range of motion intact in all extremities. Vital Signs: 09:06 BP 123 / 78; Pulse 123; Resp 16; Temp 99.8(O); Pulse Ox 96% on R/A; Weight 55.79 kg elp (R); Height 5 ft. 4 in. (162.56 cm) (R); Pain 9/10; 09:06 Body Mass Index 21.11 (55.79 kg, 162.56 cm) [facility] Vitals: 09:06 Log In Time: December 08, 2016 at 09:04. [facility] ED Course: 09:06 Patient visited by Maren Pierce PCA. elp 09:06 NO PRIMARY PHYSICIAN, . is Private Physician. elp 09:06 Patient moved to Waiting elp 09:08 Patient visited by Maren Pierce PCA. elp 09:08 Patient moved to Pre RCE elp 09:11 Triage Initiated jo3 09:13 Saum[facility] Boo [facility]-C [facility]. dt4 09:13 Sharee Saenz MD is Attending Physician. dt4 09:13 Patient visited by Saumya Boo PA-C. dt4 09:13 Patient moved to Triage 1 jo3 09:22 [facility] is Referral Physician. dt4 09:26 Wound Culture & GS - Other Unlisted Source: left buttock abscess Sent. ck1 09:29 The patient / caregiver is instructed regarding the plan of care and ED course. ck1 09:29 No IV's were initiated during this patient's visit. No procedures done that require ck1 assistance. Order Results: There are currently no results for this order. Outcome: 09:23 Discharge ordered by Provider. dt4 09:29 Discharge Assessment: Patient awake, alert and oriented x 3. No cognitive and/or ck1 functional deficits noted. Patient verbalized understanding of disposition instructions. patient administered narcotics - no. The following High Risk Discharge criteria are identified: None. Discharged to home ambulatory. Condition: stable. Discharge instructions given to patient, Instructed on discharge instructions, follow up and referral plans. medication usage, Demonstrated understanding of instructions, medications, Pt was receptive of discharge instructions/ teaching. Prescriptions given X 2. No special radiology studies were completed. Property :Personal belongings accompany Pt. 09:30 Patient left the ED. ck1 Signatures: Arabella Page,RN RN ck1 Nelda GómezRN RN jo3 Maren Pierce, ISMAEL BIRTH ATTENDANT danap Saumya Boo, ALDAIR PAMikey dt4 MTDD
--- NOTE | 2016-12-10 10:31 | EDDOCDS ---
Physician Documentation [facility] Name: Rosario Amin Age: 36 yrs Sex: Female : 1980 Arrival Date: 12/08/2016 Time: 09:06 Bed Triage 1 Private MD: NO PRIMARY PHYSICIAN, . Disposition: 12/08/16 09:23 Discharged to Home/Self Care. Impression: Cutaneous abscess of buttock - left. - Condition is Stable. - Discharge Instructions: Abscess. - Prescriptions for [place]am[place] 5- 325 mg Oral Tablet - take 1 tablet by ORAL route every 6 hours As needed MDD: 4 tabs; 20 tablet. Bactrim DS 800- 160 mg Oral Tablet - take 1 tablet by ORAL route every 12 hours for 10 days; 20 tablet. - Medication Reconciliation, Local Pharmacy Hours form. - Follow up: Emergency Department; When: As needed; Reason: Worsening of conditions. [facility]: [facility]; When: Call to arrange an appointment; Reason: Recheck today's complaints, Continuance of care, To establish care. - Problem is new. - Symptoms are unchanged. Historical: - Allergies: Keflex (Hives); - Home Meds: 1. none - PMHx: Anxiety; Asthma; Depression; Migraine Headaches; - PSHx: Tubal ligation; D & C; - Social history: Smoking status: No barriers to communication noted, The patient speaks fluent Surinamese, Speaks appropriately for age, Smoking status: Patient uses tobacco products, light tobacco smoker. - Family history: Not pertinent. - : The pt / caregiver states he / she is not on anticoagulants. Home medication list is obtained from the patient. - Exposure Risk Screening:: None identified. 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 4 in. (162.56 cm) (R); Pain 9/10; 09:06 Body Mass Index 21.11 (55.79 kg, 162.56 cm) elp MDM: 09:22 Wound Culture & GS - Other Unlisted Source: left buttock abscess Ordered. EDMS 09:35 [facility] Payment Agreement was scanned into [employer] and attached to record. mm15 :35 Financial registration complete. mm15 12/09 11:02 T-Sheet-- Draft Copy was scanned into [employer] and attached to record. gb Signatures: Dispatcher [employer] EDMS Izzy Foss, Reg Reg gb Kerri-Arabella GonzalezRN RN ck1 Nelda Gómez RN RN jo3 Renu Llamas mm15 Saumya Boo PA-C PA-C dt4 The chart was reviewed and I authenticate all verbal orders and agree with the evaluation and treatment provided.Attachments: 12/08 09:35 [facility] Payment Agreement mm15 12/09 11:02 T-Sheet-- Draft Copy gb Chart Complete MTDD
--- NOTE | 2016-12-10 10:31 | EDDOCDS ---
Nurse's Notes [facility] Name: Rosario Amin Age: 36 yrs Sex: Female : 1980 Arrival Date: 12/08/2016 Time: 09:06 Bed Triage 1 Private MD: NO PRIMARY PHYSICIAN, . Diagnosis: Cutaneous abscess of buttock-left Presentation: 12/08 09:10 Presenting complaint: Patient states: Has a "sore" in left buttock that pt has been jo3 draining and putting warm compresses on. Symptoms started Monday. Adult Sepsis Screening: The patient does not have new or worsening altered mentation. Patient's respiratory rate is less than 22. Systolic blood pressure is greater than 100. Patient has a qSOFA score of 0- Negative Sepsis Screen. Suicide/Homicide risk assessment- the patient denies having any suicidal and/or homicidal ideations and does not present with any other emotional, behavioral or mental health complaints. Status: Patient is not a manufacturers service representative or dependent. Transition of care: patient was not received from another setting of care. 09:10 Acuity: WERNER Level 3 jo3 09:10 Method Of Arrival: Walkin/Carried/Asstd jo3 Triage Assessment: 09:12 General: Appears in no apparent distress. Pain: Pain currently is 9 out of 10 on a pain jo3 scale. HIV screening NA for this visit Offered previously. Neurological: Level of Consciousness is awake, alert, Oriented to person, place, time. Respiratory: No deficits noted. Airway is patent Respiratory effort is even, unlabored, Respiratory pattern is. 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 none - PMHx: Anxiety; Asthma; Depression; Migraine Headaches; - PSHx: Tubal ligation; D & C; - Social history: Smoking status: No barriers to communication noted, The patient speaks fluent Danish, Speaks appropriately for age, Smoking status: Patient uses tobacco products, light tobacco smoker. - Family history: Not pertinent. - : The pt / caregiver states he / she is not on anticoagulants. Home medication list is obtained from the patient. - Exposure Risk Screening:: None identified. Screenin:29 Screening information is obtained from the patient. Fall risk: No risks identified. ck1 Assistance ADL's: requires no assistance with activities of daily living. Abuse/DV Screen: The patient / caregiver reports he/she is: not in a situation that causes fear, pain or injury. Nutritional screening: No deficits noted. Advance Directives: Currently, there is no health care proxy. home support is adequate. Assessment: 09:30 General: Appears in no apparent distress, Behavior is appropriate for age, cooperative. ck1 Pain: Location: left gluteus cynthia Pain currently is 9 out of 10 on a pain scale. Respiratory: No deficits noted. Derm: Skin is normal. Musculoskeletal: Circulation, motion, and sensation intact Range of motion intact in all extremities. Vital Signs: 09:06 BP 123 / 78; Pulse 123; Resp 16; Temp 99.8(O); Pulse Ox 96% on R/A; Weight 55.79 kg elp (R); Height 5 ft. 4 in. (162.56 cm) (R); Pain 9/10; 09:06 Body Mass Index 21.11 (55.79 kg, 162.56 cm) [facility] Vitals: 09:06 Log In Time: December 08, 2016 at 09:04. [facility] ED Course: 09:06 Patient visited by Maren Pierce PCA. elp 09:06 NO PRIMARY PHYSICIAN, . is Private Physician. elp 09:06 Patient moved to Waiting elp 09:08 Patient visited by Maren Pierce PCA. elp 09:08 Patient moved to Pre RCE elp 09:11 Triage Initiated jo3 09:13 [facility] dt4 09:13 Sharee Saenz MD is Attending Physician. dt4 09:13 Patient visited by Saumya Boo PA-C. dt4 09:13 Patient moved to Triage 1 jo3 09:22 [facility] is Referral Physician. dt4 09:26 Wound Culture & GS - Other Unlisted Source: left buttock abscess Sent. ck1 09:29 The patient / caregiver is instructed regarding the plan of care and ED course. ck1 09:29 No IV's were initiated during this patient's visit. No procedures done that require ck1 assistance. 09:35 [facility] Payment Agreement was scanned into Augmate and attached to record. mm15 02/03 11:02 T-Sheet-- Draft Copy was scanned into Augmate and attached to record. gb 12/10 09:21 Patient visited by Aamir Mon RN. [facility] Order Results: Lab Order: Wound Culture & GS - Other Unlisted Source: left buttock abscess; SPEC'M 12/08/16 09:24 Test: GRAM STAIN; Value: GRAM STAIN RESULT; Status: F Test: GRAM STAIN; Value: FEW WBCS; Status: F Test: GRAM STAIN; Value: MODERATE GRAM POSITIVE COCCI; Status: F Test: WOUND CULTURE; Value: <EXTERNAL COMMENT eCWMed> FULL REPORT IN LAB NOTES (eCW and Medent).; Status: F Test: WOUND CULTURE; Value: ORGANISM 1: STAPH.AUREUS METHICILLIN RESIS; Status: F Test: WOUND CULTURE; Value: STAPH.AUREUS METHICILLIN RESIS; Status: F Test: WOUND CULTURE; Value: QUANTITY OF GROWTH HEAVY; Status: F Test: WOUND CULTURE; Value: GRAM POS SENSI - VITEK 67; Status: F Test: WOUND CULTURE; Value: Method: VIT2; Status: F Test: WOUND CULTURE; Value: TETRACYCLINE <=1 S; Status: F Test: WOUND CULTURE; Value: PENICILLIN G >=0.5 R; Status: F Test: WOUND CULTURE; Value: TRIMETHOPRIM/SULFAMETHOXAZOLE <=10 S; Status: F Test: WOUND CULTURE; Value: ERYTHROMYCIN >=8 R; Status: F Test: WOUND CULTURE; Value: GENTAMICIN <=0.5 S; Status: F Test: WOUND CULTURE; Value: CLINDAMYCIN >=8 R; Status: F Test: WOUND CULTURE; Value: OXACILLIN >=4 R; Status: F Test: WOUND CULTURE; Value: VANCOMYCIN <=0.5 S; Status: F Test: WOUND CULTURE; Value: LINEZOLID (ZYVOX) 2 S; Status: F Outcome: 12/08 09:23 Discharge ordered by Provider. dt4 09:29 Discharge Assessment: Patient awake, alert and oriented x 3. No cognitive and/or ck1 functional deficits noted. Patient verbalized understanding of disposition instructions. patient administered narcotics - no. The following High Risk Discharge criteria are identified: None. Discharged to home ambulatory. Condition: stable. Discharge instructions given to patient, Instructed on discharge instructions, follow up and referral plans. medication usage, Demonstrated understanding of instructions, medications, Pt was receptive of discharge instructions/ teaching. Prescriptions given X 2. No special radiology studies were completed. Property :Personal belongings accompany Pt. 09:30 Patient left the ED. ck1 12/10 09:19 culture results reviewed treated appropriately:. kevin Signatures: Aamir Mon, RN RN Izzy Carter, Reg Reg gb Arabella PageRN RN ck1 Nelda GómezRN RN Renu Paiz mm15 Maren Pierce PCA PCA elp Tschudi, Diane, PA-C PA-C dt4 Chart Complete MTDD
--- NOTE | 2016-12-10 10:31 | EDDOCDS ---
Physician Documentation [facility] Name: Rosario Amin Age: 36 yrs Sex: Female : 1980 Arrival Date: 12/08/2016 Time: 09:06 Bed Triage 1 Private MD: NO PRIMARY PHYSICIAN, . Disposition: 12/08/16 09:23 Discharged to Home/Self Care. Impression: Cutaneous abscess of buttock - left. - Condition is Stable. - Discharge Instructions: Abscess. - Prescriptions for Bison 5- 325 mg Oral Tablet - take 1 tablet by ORAL route every 6 hours As needed MDD: 4 tabs; 20 tablet. Bactrim DS 800- 160 mg Oral Tablet - take 1 tablet by ORAL route every 12 hours for 10 days; 20 tablet. - Medication Reconciliation, Local Pharmacy Hours form. - Follow up: Emergency Department; When: As needed; Reason: Worsening of conditions. Follow up: [facility]; When: Call to arrange an appointment; Reason: Recheck today's complaints, Continuance of care, To establish care. - Problem is new. - Symptoms are unchanged. Historical: - Allergies: Keflex (Hives); - Home Meds: 1. none - PMHx: Anxiety; Asthma; Depression; Migraine Headaches; - PSHx: Tubal ligation; D & C; - Social history: Smoking status: No barriers to communication noted, The patient speaks fluent Moldovan, Speaks appropriately for age, Smoking status: Patient uses tobacco products, light tobacco smoker. - Family history: Not pertinent. - : The pt / caregiver states he / she is not on anticoagulants. Home medication list is obtained from the patient. - Exposure Risk Screening:: None identified. 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 4 in. (162.56 cm) (R); Pain 9/10; 09:06 Body Mass Index 21.11 (55.79 kg, 162.56 cm) elp MDM: 09:22 Wound Culture & GS - Other Unlisted Source: left buttock abscess Ordered. EDMS 09:35 [facility] Payment Agreement was scanned into StARTinitiative and attached to record. mm15 :35 Financial registration complete. mm15 12/09 11:02 T-Sheet-- Draft Copy was scanned into [employer]iative and attached to record. gb Signatures: Dispatcher [employer] EDMS Izzy Foss, Reg Reg gb Kerri-Arabella GonzalezRN RN ck1 Nelda Gómez RN RN jo3 Renu Llamas mm15 Saumya Boo PA-C PA-C dt4 The chart was reviewed and I authenticate all verbal orders and agree with the evaluation and treatment provided.Attachments: 12/08 09:35 [facility] Payment Agreement mm15 12/09 11:02 T-Sheet-- Draft Copy gb Chart Complete MTDD
== END 2016-12-08 09:30 | disposition home or self-care (01) ==
LOC: M ED 09:06
DX: L02.31 Cutaneous abscess of buttock (principal); Z88.1 Allergy status to other antibiotic agents; F17.200 Nicotine dependence, unspecified, uncomplicated

== ENCOUNTER 2016-12-09 16:41 | Inpatient (IN) | payer MEDICAID, SELFPAY ==
[~2016-12-09] VITALS: Ht 162.6 cm; Wt 61.0 kg
[2016-12-09 17:41] LABS: MEAN CORPUSCULAR HEMOGLOBIN 30.9 pg (27.0-33.0); MEAN CORPUSCULAR HGB CONC 33.5 g/dl (32.0-36.5); MEAN CORPUSCULAR VOLUME 92.2 fl (80.0-96.0); RED CELL DISTRIBUTION WIDTH 13.1 % (11.5-14.5); WHITE BLOOD COUNT 16.6 K/mm3 (4.0-10.0)
[2016-12-09 18:01] LABS: CONTROL LINE HCG INT CTR LINE PRESENT
[2016-12-09 18:15] LABS: ALBUMIN 3.3 GM/DL (3.2-5.2); ALBUMIN/GLOBULIN RATIO 0.92 (1.00-1.93); ALKALINE PHOSPHATASE 107 U/L (45-117); ALT/SGPT 25 U/L (12-78); ANION GAP 9 MEQ/L (8-16); AST/SGOT 13 U/L (15-37); BILIRUBIN,DIRECT < 0.1 MG/DL (0.0-0.2); BILIRUBIN,TOTAL 0.1 MG/DL (0.2-1.0); BLOOD UREA NITROGEN 7 MG/DL (7-18); CALCIUM LEVEL 9.3 MG/DL (8.5-10.1); CARBON DIOXIDE LEVEL 29 MEQ/L (21-32); CHLORIDE LEVEL 103 MEQ/L (98-107); CREATININE FOR GFR 0.71 MG/DL (0.55-1.02); GLOMERULAR FILTRATION RATE > 60.0 (>60); GLUCOSE, FASTING 94 MG/DL (70-105); POTASSIUM SERUM 4.4 MEQ/L (3.5-5.1); SODIUM LEVEL 141 MEQ/L (136-145); TOTAL PROTEIN 6.9 GM/DL (6.4-8.2)
[2016-12-09] MEDS ORDERED: NORCO, ANEXSIA 5/325MG TABLET (HYDROcodone/ACETAMINOPHEN) As Ordered ONE (18:22)
[2016-12-09 19:45] LABS: AMPHETAMINES LEVEL URINE POSITIVE (NEGATIVE); BENZODIAZEPINES URINE NEGATIVE (NEGATIVE)
[2016-12-09 19:46] LABS: COCAINE METABOLITE URINE NEGATIVE (NEGATIVE); CONTROL LINE INT CTR LINE PRESENT; METHADONE URINE NEGATIVE (NEGATIVE); OPIATES URINE POSITIVE (NEGATIVE); TRICYCLIC ANTIDEPRESS URINE NEGATIVE (NEGATIVE)
--- NOTE | 2016-12-09 22:29 | EDDOCDS ---
Physician Documentation [facility] Name: Rosario Amin Age: 36 yrs Sex: Female : 1980 Arrival Date: 12/09/2016 Time: 16:41 Bed BHU2 Private MD: NO PRIMARY PHYSICIAN, . Disposition: 12/09/16 20:26 Hospitalization ordered by Tab Greer for Inpatient Admission. Preliminary diagnosis is Major depressive disorder, recurrent. - Bed requested for Admit. - Status is Inpatient Admission. rw1 - Condition is Stable. - Problem is an ongoing problem. - Symptoms have improved. HPI: 12/09 17:31 This 36 yrs old Female presents to ER via Walkin/Carried/Asstd with pc complaints of Depression. 17:31 The history is obtained from the patient. The patient presents to the emergency pc department with depression. At their worst, the symptoms were moderate. In the emergency department, the symptoms are unchanged. She stopped her meds a while ago and feels her depression is out of control. She denies SI but feels "like I could". The patient has experienced similar episodes in the past, multiple times. The patient has been recently seen at the [facility], this week, for a buttocks abscess. Historical: - Allergies: Keflex (Hives); - Home Meds: 1. Prozac Oral once daily pt states it has been 4 years since she has taken this med 2. Xanax Unknown Oral Unknown last dose was 4 years ago - PMHx: Anxiety; Asthma; Depression; Migraine Headaches; - PSHx: D & C; Tubal ligation; - The history from nurses notes was reviewed: and I agree with what is documented. - Social history: Smoking status: Patient uses tobacco products, current every day smoker. No barriers to communication noted, The patient speaks fluent Irish. - Family history: Not pertinent. - : The pt / caregiver states he / she is not on anticoagulants. Home medication list is obtained from the patient. - Hospitalizations: : No recent hospitalization is reported. - Exposure Risk Screening:: None identified. - Immunization history:: All immunizations up-to-date. - Social history:: the patient smokes cigarettes the patient drinks alcohol. 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 The psychiatric and neurological components pc are also addressed in the HPI. Exam: 17:31 General Appearance: alert, no acute distress. pc 17:31 ENT: ear, nose and throat normal, pharynx normal. 17:31 Eyes: pupils equal, round and reactive to light, extraocular motions intact. 17:31 Neck: The exam reveals no acute abnormalities. ROM is normal and painless. No nuchal rigidity is noted.. 17:31 Respiratory: breathing is even and unlabored, breath sounds are normal. 17:31 Cardiovascular: regular pulse rate, regular heart rhythm, normal heart sounds, equal and full pulses bilaterally. 17:31 Abdomen: soft, non-tender, no organomegaly, normal bowel sounds. 17:31 Skin: skin color is normal, warm, dry. 17:31 Extremities: The extremities have a grossly normal appearance. 17:31 Neuro: alert, oriented to person, place and time, cranial nerves normal as tested, no motor deficits, no sensory deficits. 17:31 Psych: mood is depressed, tearful, affect is flat. Vital Signs: 16:44 BP 125 / 98; Pulse 80; Resp 18; Temp 97.3(O); Pulse Ox 100% on R/A; Weight 56.7 kg / ct3 125 lbs (R); Height 5 ft. 2 in. (157.48 cm) (R); Pain 0/10; 22:24 BP 134 / 91; Pulse 92; Resp 18; Temp 96.9(O); Pulse Ox 100% on R/A; Pain 0/10; rw1 16:44 Body Mass Index 22.86 (56.70 kg, 157.48 cm) ct3 MDM: 17:24 Consult PFS/PSA/Foundation Digger: Patient's case requires discussion with on-call pc Psychiatrist ordered. 17:24 PSA/PFS to call Nursing Outreach Assistant, to enter patient data on [place] Safe [place] if patient pc involuntarily admitted or transferred for SI or HI ordered. 17:24 Confirm accurate psychiatric medication list and times of last dosage ordered. pc 17:24 Detain Pt Until Medically/PFS Cleared ordered. pc 17:25 Acetaminophen Level Ordered. EDMS 17:25 Basic Metabolic Profile Ordered. EDMS 17:25 Complete Blood Count Ordered. EDMS 17:25 Drug Eval Toxicology ED Only Ordered. EDMS 17:25 Ethyl Alcohol (ethanol) Ordered. EDMS 17:25 HCG,Serum Qualitative Ordered. EDMS 17:25 Liver Profile Ordered. EDMS 17:25 Salicylate Level Ordered. EDMS 17:25 Thyroid Stimulating Hormone Ordered. EDMS 17:31 Differential diagnosis: depression. Plan: labs, PFS eval. pc 17:33 REGULAR DIET PLASTIC SCHMIDT+DIET ordered. EDMS 17:55 Financial registration complete. zo 17:58 [facility] Payment Agreement was scanned into [employer] and attached to record. zo 18:27 Acetaminophen Level Reviewed. pc 18:27 Complete Blood Count Reviewed. pc 18:27 Liver Profile Reviewed. pc 18:27 Salicylate Level Reviewed. pc 18:27 Basic Metabolic Profile Reviewed. pc 18:27 Ethyl Alcohol (ethanol) Reviewed. pc 18:27 HCG,Serum Qualitative Reviewed. pc 18:27 Thyroid Stimulating Hormone Reviewed. pc 18:28 HYDROcodone-acetaminophen 5 mg-325 mg 1 tabs PO once ordered. ld5 18:49 Consult PFS/PSA/Foundation Digger: Patient's case requires discussion with on-call ms Psychiatrist complete. 18:49 PSA/PFS to call Nursing Outreach Assistant, to enter patient data [place] if patient ms involuntarily admitted or transferred for SI or HI complete. 20:27 BED REQUEST+ADM ordered. EDMS 20:29 Admit to [facility]: ordered. EDMS 20:43 [facility] Legal paperwork was scanned into [employer] and attached to record. ms 22:20 Drug Eval Toxicology ED Only Reviewed. cs11 Administered Medications: 18:28 Drug: HYDROcodone-acetaminophen 1 tabs [hydrocodone 5 mg-acetaminophen 325 mg tablet (1 ld5 tabs)] Route: PO; 20:00 Follow up: Response: Pain is decreased rw1 Signatures: Dispatcher [employer] EDMS Latrell Wheeler MD MD pc Stone, Mary, PSA PSA ms BrittneyDiego,COMMISSARY PRODUCTION SUPERVISOR COMMISSARY PRODUCTION SUPERVISOR rw1 Alexsander Alfaro Laura,RN RN ld5 Darren Cuevas DO DO cs11 Tayler Stallings RN RN ms18 The chart was reviewed and I authenticate all verbal orders and agree with the evaluation and treatment provided.Attachments: 17:58 [facility] Payment Agreement zo MTDD
--- NOTE | 2016-12-09 22:29 | EDDOCDS ---
Nurse's Notes [facility] Name: Rosario Amin Age: 36 yrs Sex: Female : 1980 Arrival Date: 12/09/2016 Time: 16:41 Bed [facility] Private MD: NO PRIMARY PHYSICIAN, . Diagnosis: Major depressive disorder, recurrent Presentation: 12/09 16:50 Presenting complaint: Patient states: that she has been off of her meds for "awhile" ms18 and her depression has gotten worse. Pt states that she is very stressed at this time. Mental Health Triage Level: Level 2: The patient displays active suicidal ideations. Adult Sepsis Screening: The patient does not have new or worsening altered mentation. Patient's respiratory rate is less than 22. Systolic blood pressure is greater than 100. Patient has a qSOFA score of 0- Negative Sepsis Screen. Suicide/Homicide risk assessment- The patient admits to and/or has been reported to be having suicidal ideations. Status: Patient is not a dispatcher maintenance service or dependent. Transition of care: patient was not received from another setting of care. 16:50 Acuity: WERNER Level 3 ms18 16:50 Method Of Arrival: Walkin/Carried/Asstd ms18 Triage Assessment: 16:54 General: Appears in no apparent distress, comfortable, Behavior is anxious, appropriate ms18 for age, cooperative. Pain: Denies pain. HIV screening NA for this visit Offered previously. Neurological: No deficits noted. Respiratory: No deficits noted. Derm: Skin is pink, warm & dry. 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 Prozac Oral once daily pt states it has been 4 years since she has taken this med 2. Xanax Unknown Oral Unknown last dose was 4 years ago - PMHx: Anxiety; Asthma; Depression; Migraine Headaches; - PSHx: D & C; Tubal ligation; - The history from nurses notes was reviewed: and I agree with what is documented. - Social history: Smoking status: Patient uses tobacco products, current every day smoker. No barriers to communication noted, The patient speaks fluent Moh[place]. - Family history: Not pertinent. - : The pt / caregiver states he / she is not on anticoagulants. Home medication list is obtained from the patient. - Hospitalizations: : No recent hospitalization is reported. - Exposure Risk Screening:: None identified. - Immunization history:: All immunizations up-to-date. - Social history:: the patient smokes cigarettes the patient drinks alcohol. Screenin:24 Screening information is obtained from the patient. Fall risk: No risks identified. rw1 Assistance ADL's: requires no assistance with activities of daily living. Abuse/DV Screen: The patient / caregiver reports he/she is: not in a situation that causes fear, pain or injury. Nutritional screening: No deficits noted. Advance Directives: Currently, there is no health care proxy. home support is adequate. Assessment: 17:14 General: Appears in no apparent distress, Behavior is quiet. Pain: Location: left ld5 gluteus cynthia Pain currently is 7 out of 10 on a pain scale. Neurological: Level of Consciousness is awake, alert. Respiratory: Airway is patent Respiratory effort is even, unlabored, Breath sounds are clear bilaterally. GI: Abdomen is non- distended Bowel sounds present X 4 quads. Derm: Abscess located on left gluteus cynthia bandaid covering area at this time, redness extending around area. 17:32 General: Pt aware of need for urine specimen. When asked to provide it, pt states ld5 "maybe in a minute". Will continue to monitor. 17:59 General: Pt requesting to speak with this RN. Pt states "can you tell me what I am ld5 waiting on? I am feeling better and I don't think that I need to be admitted". Will continue to monitor. 18:10 General: CRISTY Lindsey in to speak with pt. ld5 18:32 General: Pt requesting pain medication. Provider made aware and pt medicated per ld5 orders. Will continue to monitor. 19:40 General: Dressing changed to abscess site. Pt tolerated well. Pt's pill bottle of [place] ld5 brought to pharmacy. paperwork placed in chart. 20:26 General: Appears in no apparent distress, comfortable, Behavior is quiet, resting on rw1 stretcher, safety maintained will monitor. Respiratory: Airway is patent Respiratory effort is even, unlabored. Derm: Skin is pink, warm & dry. normal. 21:18 Reassessment: Patient appears in no apparent distress at this time. awake resting on rw1 stretcher, safety maintained will monitor.. 22:24 Reassessment: Patient appears in no apparent distress at this time. Patient denies pain rw1 at this time. awake resting on stretcher, safety maintained will monitor.. Mental Health Eval: 18:14 Mental health consult is initiated at 17:45. Status: The patient is not a ms dispatcher maintenance service or dependent. [facility] Behavioral Health: The patient is not an established patient of [facility] Behavioral Health. Referral Information: Evaluation referral is generated by the patient himself / herself. The patient was referred for evaluation because depression, anxiety, panic attacks. Subjective: The patients chief complaint is Pt. states she has history of anxiety and depression. Has not been to counseling or has not taken meds for such for many years .She reports that today she had a panic attack when hanging around with a couple of friends. She reports she has had panic attacks in past, most recently one month ago. Pt. denies SI/HI to this worker but stated to nurse upon arrival that she did have thoughts of harming self. She did report to ER that she was not suicidal but 'feels like she could..' Pt. states she is depressed. Pt. reports recent 8 yr. relationship break up which she is upset about. Delusions are denied. Patient's mood is depressed, Hallucinations are denied. Mental Health history: anxiety, depression, Mental Health Admissions: None. Current Outpatient Mental Health Services: None. Current living environment is The patient currently lives with a roommate, . Patient presents to Emergency Department with the following symptoms within the past 2 weeks: anxiety, depressed mood, relational problem, suicidal ideation with no plan. Substance abuse: Pt denies. Mental status exam: Patients appearance is appropriate, Patient's behavior is cooperative, Speech is normal. Affect is appropriate. Mood is depressed. Hallucinations are denied. Appetite is normal. Memory is good. Energy level is normal. Content of thought is normal. Thought process is intact. Cognitive level is oriented to person, place, time and situation Patient's insight is fair. Judgement is fair. Rapport with interviewer is guarded. Suicidal Ideation is present with no specific plan. Homicidal ideation is denied. 20:45 Disposition: Medically cleared for disposition by Darren Cuevas DO Psychiatric Consult ms is performed by phone with Dr Tab Greer MD. [facility] Admission Criteria: The patient is experiencing suicidal ideation. The patient requires continuous observation and/or control to protect self, others or property. Legal Status: Patient's legal status will be Emergency admission: 39. [place] Safe Act: [place] Safe Act is applicable to this patient. The patient poses a risk to self or other and the Nursing Didactic Instructor has been notified. He/She will enter the patient's data. DSM-V Differential Diagnosis: Unspecified Depressive Disorder (F32.9). Insurance Pre-Certification: Not Required. Vital Signs: 16:44 BP 125 / 98; Pulse 80; Resp 18; Temp 97.3(O); Pulse Ox 100% on R/A; Weight 56.7 kg (R); ct3 Height 5 ft. 2 in. (157.48 cm) (R); Pain 0/10; 22:24 BP 134 / 91; Pulse 92; Resp 18; Temp 96.9(O); Pulse Ox 100% on R/A; Pain 0/10; rw1 16:44 Body Mass Index 22.86 (56.70 kg, 157.48 cm) ct3 Vitals: 16:44 Log In Time: December 09, 2016 at 16:43. ct3 16:45 RN notified that patient meets Red Flag criteria. ct3 ED Course: 16:43 Patient visited by Aubrie De La Cruz PCA. ct3 16:43 Patient moved to [facility] ct3 16:44 NO PRIMARY PHYSICIAN, . is Private Physician. ct3 16:50 Tayler Stallings,YOEL is Primary Nurse. ms18 16:52 Triage Initiated ms18 16:55 Latrell Wheeler MD is Attending Physician. pc 16:55 Patient moved to [facility] ms18 17:03 Patient visited by Carlos Barba. dpm 17:17 Patient visited by Josi Mcdaniel,YOEL. ld5 17:32 Acetaminophen Level Sent. ld5 17:32 Basic Metabolic Profile Sent. ld5 17:32 Complete Blood Count Sent. ld5 17:32 Ethyl Alcohol (ethanol) Sent. ld5 17:32 HCG,Serum Qualitative Sent. ld5 17:32 Liver Profile Sent. ld5 17:32 Salicylate Level Sent. ld5 17:32 Thyroid Stimulating Hormone Sent. ld5 17:33 Patient visited by Josi Mcdaniel,YOEL. ld5 17:35 Patient visited by Latrell Wheeler MD. pc 17:55 Patient visited by Kimberly Henley RN. ca7 17:58 [facility] Payment Agreement was scanned into [employer] and attached to record. zo 18:00 Patient visited by Josi Mcdaniel RN. ld5 18:04 Patient visited by Carlos Barba. dpm 18:25 Patient visited by Carlso Barba. dpm 18:33 Patient visited by Jsoi Mcdaniel RN. ld5 18:43 Patient visited by Carlos Barba. dpm 19:01 Patient visited by Bryant Zepeda. tr 19:15 Patient visited by Bryant Zepeda. tr 19:19 Drug Eval Toxicology ED Only Sent. rw1 19:25 Attending Physician role handed off by Latrell Wheeler MD cs11 19:25 Darren Cuevas DO is Attending Physician. cs11 19:29 Patient visited by Bryant Zepeda. tr 19:44 Patient visited by Bryant Zepeda. tr 19:59 Patient visited by Bryant Zepeda. tr 20:15 Patient visited by Diego Lugo LPN. rw1 20:26 Tab Greer MD is Hospitalizing Provider. cs11 20:31 Patient visited by Bryant Zepeda. tr 20:43 [facility] Legal paperwork was scanned into [employer] and attached to record. ms 20:44 Patient visited by Bryant Zepeda. tr 21:00 Patient visited by Bryant Zepeda. tr 21:16 Patient visited by Bryant Zepeda. tr 21:29 Patient visited by Bryant Zepeda. tr 21:46 Patient visited by Bryant Zepeda. tr 22:01 Patient visited by Bryant Zepeda. tr 22:15 Patient visited by Bryant Zepeda. tr 22:24 The patient / caregiver is instructed regarding the plan of care and ED course. rw1 22:24 No IV's were initiated during this patient's visit. No procedures done that require rw1 assistance. Administered Medications: 18:28 Drug: HYDROcodone-acetaminophen 1 tabs [hydrocodone 5 mg-acetaminophen 325 mg tablet (1 ld5 tabs)] Route: PO; 20:00 Follow up: Response: Pain is decreased rw1 Attachments: 20:43 [facility] Legal paperwork ms Order Results: Lab Order: Acetaminophen Level; SPEC'M 12/09/16 17:29 Test: ACETAMINOPHEN LEVEL; Value: < 2.0; Range: 10.0-30.0; Abnormal: Below low normal; Units: UG/ML; Status: F Lab Order: Basic Metabolic Profile; SPEC'M 12/09/16 17:29 Test: GLUCOSE, FASTING; Value: 94; Range: 70-105; Units: MG/DL; Status: F Test: BLOOD UREA NITROGEN; Value: 7; Range: 7-18; Units: MG/DL; Status: F Test: CREATININE FOR GFR; Value: 0.71; Range: 0.55-1.02; Units: MG/DL; Status: F Test: SODIUM LEVEL; Range: 136-145; Units: MEQ/L; Status: I Test: POTASSIUM SERUM; Range: 3.5-5.1; Units: MEQ/L; Status: I Test: CHLORIDE LEVEL; Range: 98-107; Units: MEQ/L; Status: I Test: CARBON DIOXIDE LEVEL; Range: 21-32; Units: MEQ/L; Status: I Test: ANION GAP; Range: 8-16; Units: MEQ/L; Status: I Test: CALCIUM LEVEL; Range: 8.5-10.1; Units: MG/DL; Status: I Test: GLOMERULAR FILTRATION RATE; Value: > 60.0; Range: >60; Status: F Test: SODIUM LEVEL; Value: 141; Range: 136-145; Units: MEQ/L; Status: F Test: POTASSIUM SERUM; Value: 4.4; Range: 3.5-5.1; Units: MEQ/L; Status: F Test: CHLORIDE LEVEL; Value: 103; Range: 98-107; Units: MEQ/L; Status: F Test: CARBON DIOXIDE LEVEL; Value: 29; Range: 21-32; Units: MEQ/L; Status: F Test: ANION GAP; Value: 9; Range: 8-16; Units: MEQ/L; Status: F Test: CALCIUM LEVEL; Value: 9.3; Range: 8.5-10.1; Units: MG/DL; Status: F Test Note: ; Units are mL/min/1.73 m2 Chronic Kidney Disease Staging per NKF: Stage I & II GFR >=60 Normal to Mildly Decreased Stage III GFR 30-59 Moderately Decreased Stage IV GFR 15-29 Severely Decreased Stage V GFR <15 Very Little GFR Left ESRD GFR <15 on BROADCAST DIRECTOR OPERATIONS Lab Order: Complete Blood Count; SPEC'M 12/09/16 17:29 Test: WHITE BLOOD COUNT; Value: 16.6; Range: 4.0-10.0; Abnormal: Above high normal; Units: K/mm3; Status: F Test: RED BLOOD COUNT; Value: 3.88; Range: 4.00-5.40; Abnormal: Below low normal; Units: M/mm3; Status: F Test: HEMOGLOBIN; Value: 12.0; Range: 12.0-16.0; Units: g/dl; Status: F Test: HEMATOCRIT; Value: 35.7; Range: 36.0-47.0; Abnormal: Below low normal; Units: %; Status: F Test: MEAN CORPUSCULAR VOLUME; Value: 92.2; Range: 80.0-96.0; Units: fl; Status: F Test: MEAN CORPUSCULAR HEMOGLOBIN; Value: 30.9; Range: 27.0-33.0; Units: pg; Status: F Test: MEAN CORPUSCULAR HGB CONC; Value: 33.5; Range: 32.0-36.5; Units: g/dl; Status: F Test: RED CELL DISTRIBUTION WIDTH; Value: 13.1; Range: 11.5-14.5; Units: %; Status: F Test: PLATELET COUNT, AUTOMATED; Value: 378; Range: 150-450; Units: k/mm3; Status: F Lab Order: Drug Eval Toxicology ED Only; SPEC'M 12/09/16 19:17 Test: AMPHETAMINES LEVEL URINE; Value: POSITIVE; Range: NEGATIVE; Abnormal: Above high normal; Status: F Test: BARBITURATES URINE; Value: NEGATIVE; Range: NEGATIVE; Status: F Test: BENZODIAZEPINES URINE; Value: NEGATIVE; Range: NEGATIVE; Status: F Test: CANNABINOIDS URINE; Value: NEGATIVE; Range: NEGATIVE; Status: F Test: COCAINE METABOLITE URINE; Value: NEGATIVE; Range: NEGATIVE; Status: F Test: METHADONE URINE; Value: NEGATIVE; Range: NEGATIVE; Status: F Test: OPIATES URINE; Value: POSITIVE; Range: NEGATIVE; Abnormal: Above high normal; Status: F Test: TRICYCLIC ANTIDEPRESS URINE; Value: NEGATIVE; Range: NEGATIVE; Status: F Test Note: ; ALL PRESUMPTIVE POSITIVE FINDINGS ARE UNCONFIRMED NORMAL VALUES THRESHOLD IN NG/ML AMPHETAMINES 1000 METHAMPHETAMINES 1000 BARBITURATES 300 BENZODIAZEPINES 300 CANNABINOIDS (THC) 50 COCAINE METABOLITE 300 METHADONE 300 OPIATES 300 PHENCYCLIDINE 25 TRICYCLIC ANTIDEPRESSANTS 1000 RESULTS ARE FOR MEDICAL PURPOSES ONLY. ALL URINE SPECIMENS WILL BE SAVED FOR 3 DAYS. IF CONFIRMATION OF A PRESUMPTIVE POSTIVE SCREEN RESULT IS DESIRED, CALL CHEMISTRY ([phone]) AND REQUEST URINE TO BE SENT TO REFERENCE LAB. FOR A LIST OF CLOSELY RELATED COMPOUNDS PLEASE CALL THE LAB. Lab Order: Ethyl Alcohol (ethanol); [facility]' 12/09/16 17:29 Test: ETHYL ALCOHOL (ETHANOL); Value: < 0.003; Range: 0.000-0.010; Units: %; Status: F Lab Order: HCG,Serum Qualitative; [facility]' 12/09/16 17:29 Test: HCG, SERUM QUALITATIVE; Value: NEGATIVE; Range: NEGATIVE; Status: F Lab Order: Liver Profile; [facility] 12/09/16 17:29 Test: AST/SGOT; Value: 13; Range: 15-37; Abnormal: Below low normal; Units: U/L; Status: F Test: ALT/SGPT; Value: 25; Range: 12-78; Units: U/L; Status: F Test: ALKALINE PHOSPHATASE; Value: 107; Range: 45-117; Units: U/L; Status: F Test: BILIRUBIN,TOTAL; Value: 0.1; Range: 0.2-1.0; Abnormal: Below low normal; Units: MG/DL; Status: F Test: BILIRUBIN,DIRECT; Value: < 0.1; Range: 0.0-0.2; Units: MG/DL; Status: F Test: TOTAL PROTEIN; Value: 6.9; Range: 6.4-8.2; Units: GM/DL; Status: F Test: ALBUMIN; Value: 3.3; Range: 3.2-5.2; Units: GM/DL; Status: F Test: ALBUMIN/GLOBULIN RATIO; Value: 0.92; Range: 1.00-1.93; Abnormal: Below low normal; Status: F Lab Order: Salicylate Level; [facility] 12/09/16 17:29 Test: SALICYLATE LEVEL; Value: 2.1; Range: 5.0-30.0; Abnormal: Below low normal; Units: MG/DL; Status: F Lab Order: Thyroid Stimulating Hormone; SPEC'M 12/09/16 17:29 Test: THYROID STIMULATING HORMONE; Value: 1.360; Range: 0.358-3.740; Units: uIU/ML; Status: F Outcome: 20:26 Decision to Hospitalize by Provider. cs11 22:24 Discharge Assessment: Patient awake, alert and oriented x 3. No cognitive and/or rw1 functional deficits noted. Patient verbalized understanding of disposition instructions. patient administered narcotics - yes. Patient was admitted to the hospital or transferred to another facility. The following High Risk Discharge criteria are identified: Admitted to Psych accompanied by tech, via wheelchair, with chart. Condition: stable. No special radiology studies were completed. Property removed, inventory done, secured in belongings bag- given to [facility] staff. 22:28 Patient left the ED. rw1 Signatures: Latrell Wheeler MD MD pc Maria Lindsey, PSA PSA ms Katelyn, Diego Thomason,BEAUTY OPERATOR BEAUTY OPERATOR rw1 Alexsander Alfaro Laura,RN RN ld5 Aubrie De La Cruz, REFINERY OPERATOR HELPER REFINERY OPERATOR HELPER ct3 Carlos Barba dpm, Craig, DO DO cs11 Kimberly Henley, YOEL RN ca7 Tayler Stallings RN RN ms18 MTDD
[2016-12-09 22:40] VITALS: BP 132/81
[2016-12-10] MEDS ORDERED: BACT800T5 PO (00:56)
[2016-12-10] MEDS ORDERED: NORC5TAB PO (00:56)
[2016-12-10] MEDS ORDERED: traZODone 50 MG TAB PO PRN (01:00)
[2016-12-10] MEDS ORDERED: MAALOX 30 ML SUSP *UDC PO PRN (01:00)
[2016-12-10] MEDS ORDERED: MOM 30ML SUSPENSION UDC PO PRN (01:00)
[2016-12-10] MEDS ORDERED: ACETAMINOPHEN TAB 650MG DOSE (2X325MG) PO PRN (01:00)
[2016-12-10] MEDS: BACTRIM 160MG/800MG DS TAB PO SCH ×3 (01:08→23:53)
[2016-12-10] MEDS: NORCO, ANEXSIA 5/325MG TABLET (HYDROcodone/ACETAMINOPHEN) PO PRN ×4 (01:19→21:11)
[2016-12-10 06:48] VITALS: BP 94/55
[2016-12-10] MEDS: NICOTINE 21MG/24HR 1 EA TRANSDERMAL TD SCH (08:29)
[2016-12-10] MEDS ORDERED: VENLAFAXINE **XR** 37.5 MG CAPSULE PO ONE (11:30)
[2016-12-10 18:00] VITALS: BP 104/78
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
[2016-12-10] MEDS: hydrOXYzine 50 MG TAB PO PRN (21:10)
[2016-12-10] MEDS: traZODone 100 MG TAB PO SCH (23:52)
[2016-12-11 06:51] LABS: BASO % 0.5 % (0.0-1.0); EOS # 0.2 K/mm3 (0.0-0.50); LARGE UNSTAINED CELL # 0.3 K/mm3 (0.0-0.4); LARGE UNSTAINED CELL % 3.1 % (0.0-4.0); LYMPH # 3.3 K/mm3 (1.5-4.5); LYMPH % 34.3 % (24.0-44.0); MEAN CORPUSCULAR HEMOGLOBIN 30.2 pg (27.0-33.0); MEAN CORPUSCULAR HGB CONC 32.8 g/dl (32.0-36.5); MEAN CORPUSCULAR VOLUME 92.2 fl (80.0-96.0); MONO # 0.5 K/mm3 (0.0-0.8); MONO % 6.1 % (0.0-5.0); NEUTROPHILS # 4.8 K/mm3 (1.8-7.7); NEUTROPHILS % 53.9 % (36.0-66.0); PLATELET COUNT, AUTOMATED 414 k/mm3 (150-450); RED CELL DISTRIBUTION WIDTH 13.2 % (11.5-14.5); WHITE BLOOD COUNT 8.9 K/mm3 (4.0-10.0)
[2016-12-11 06:54] VITALS: BP 105/56
--- NOTE | 2016-12-11 07:36 | HPE ---
DATE OF ADMISSION: 12/09/2016 HISTORY OF PRESENT ILLNESS: Please refer to the psychiatric history and evaluation for further details on this admission. This examination and history is intended for medical issues which may need treatment, followup or consultation on this 36-year-old female. ALLERGIES: - CEPHALEXIN PRIMARY CARE PROVIDER: She currently has none. SOCIAL HISTORY: She is . ETOH - occasionally. Smokes - about 1/2 pack of cigarettes per day. Recreational drug use - none. PAST MEDICAL HISTORY: She was treated on the 2nd in the emergency room for abscess on her left buttock and started on Bactrim. She has history of anxiety and asthma, clinically stable, depression, migraines (none currently). PAST SURGICAL HISTORY: Tubal ligation and dilation and curettage (D and C). HOME MEDICATIONS: - Bactrim DS one by mouth every 12 hours (started 12/08/2016) LABORATORY STUDIES: WBC 16.6, hemoglobin 12, hematocrit 35.7 and platelets 378. Electrolytes were normal. BUN was 7. Creatinine was 0.7. Urine was positive for opiates and amphetamines. REVIEW OF SYSTEMS: Ten systems review was done and other than the painful abscess on her left buttock, which she says started several days ago as a small pimple and has gotten bigger and not it is large, warm, red and draining. FAMILY HISTORY: Noncontributory. PHYSICAL EXAMINATION: 36-year-old cooperative female in no acute distress. Height 64 inches. Weight 58 kg. Body mass index (BMI) 22. Blood pressure 104/78. Pulse 82. Respirations 16. Temperature 98. The patient is alert and oriented times three. Pupils equal and react to light. Extraocular movements intact. Cornea and sclera clear. Conjunctiva normal. No facial asymmetry. Pharynx, tongue and gums pink and moist. Tongue is midline. Neck is supple, without lymphadenopathy. No thyromegaly. No goiter. Chest clear to auscultation, without wheeze or retraction. Heart is regular. Abdomen benign. Bowel sounds positive. Genitourinary ()/Rectal: Not done. Extremities show equal strength, full range of motion. No cyanosis, clubbing or edema. Peripheral pulses equal and palpable bilaterally. The left buttock has a dime sized open area draining, red and indurated around it. IMPRESSION AND PLAN: 1. Abscess left buttock that started about a week and a half ago as a small pimple. She noticed it after she came back from a cruise and it has gotten worse. Surgical consult, Dr. Espinoza. I have discussed with Dr. Espinoza and he will see the patient in the morning. She will be nothing by mouth after midnight in case he needs to do an irrigation and debridement (I and D). Will continue Bactrim DS one by mouth every 12 hours. 2. Psychiatric. Plan per psychiatry. 3. History of asthma, stable. 4. History of migraines, none currently.
[2016-12-11] MEDS ORDERED: LIDOCAINE W/EPINEPHRINE 1% 20ML VIAL As Ordered ONE (07:54)
[2016-12-11 07:55] VITALS: BP 100/78
[2016-12-11] MEDS ORDERED: fentaNYL 100 MCG/2 ML INJECTION (J3010) As Ordered ONE ×2 (08:05→08:46)
[2016-12-11] MEDS ORDERED: MIDAZOLAM INJ 2 MG/2 ML VIAL (J2250) As Ordered ONE (08:05)
[2016-12-11] MEDS ORDERED: LIDOCAINE 2% INJ 100 MG/5 ML SDV (FOR ANES.) As Ordered ONE (08:07)
[2016-12-11] MEDS ORDERED: PROPOFOL 200 MG/20 ML VIAL As Ordered ONE (08:07)
[2016-12-11] MEDS ORDERED: LIDOCAINE W/EPINEPHRINE 1% 20ML VIAL XX ONE (08:40)
[2016-12-11] MEDS: fentaNYL 100 MCG/2 ML INJECTION (J3010) IV PRN ×2 (08:40→09:09)
[2016-12-11] MEDS ORDERED: NORCO, ANEXSIA 5/325MG TABLET (HYDROcodone/ACETAMINOPHEN) As Ordered ONE (08:46)
[2016-12-11] MEDS ORDERED: KETOROLAC 30 MG/ML VIAL (J1885) As Ordered ONE (08:49)
[2016-12-11] MEDS ORDERED: KETOROLAC 30 MG/ML VIAL (J1885) IV PRN (09:00)
[2016-12-11] MEDS ORDERED: LR 1,000 ML IV SCH (09:00)
[2016-12-11] MEDS ORDERED: NORCO, ANEXSIA 5/325MG TABLET (HYDROcodone/ACETAMINOPHEN) PO PRN (09:00)
[2016-12-11] MEDS ORDERED: ONDANSETRON 4MG/2ML VIAL (J2405) IV PRN (09:00)
[2016-12-11] MEDS: NICOTINE 21MG/24HR 1 EA TRANSDERMAL TD SCH (09:00)
[2016-12-11] MEDS: VENLAFAXINE **XR** 75MG CAPSULE PO SCH (10:15)
--- NOTE | 2016-12-11 11:08 | CR ---
DATE OF CONSULTATION: 12/11/2016 REASON FOR CONSULTATION: Left buttock abscess. HISTORY OF PRESENT ILLNESS: The patient is a 36-year-old female who came to the emergency room on 12/09. She was admitted for depression and anxiety. She has also been having difficulties with this left buttock abscess that started earlier in the week. She was placed on p.o. antibiotics; however, it has been continuing to increase in size and has stopped draining since she has been admitted to the hospital. She was only on p.o. antibiotics because she is on the psych floor and they cannot have any IVs. Her white count was 16.6. Therefore, they called me to evaluate for possible incision and drainage. PAST MEDICAL HISTORY: Anxiety. Asthma. Depression. Migraines. PAST SURGICAL HISTORY: Tubal ligation. Dilatation and curettage. HOME MEDICATIONS: Please see medical record. ALLERGIES: 1. KEFLEX. SOCIAL HISTORY: Smokes half a pack a day. Denies any drug or alcohol abuse. FAMILY HISTORY: Noncontributory. REVIEW OF SYSTEMS: Pertinent positives and negatives as stated in the history of present illness. PHYSICAL EXAMINATION: GENERAL: Alert and oriented times three. No acute distress. VITALS: Temperature 97.7, pulse 84, respirations 14, blood pressure 91/50, pulse oximetry 95% on room air. HEENT: Pupils equally round and reactive to light and accommodation. HEART: S1 and S2 regular rate and rhythm. LUNGS: Clear to auscultation bilaterally. ABDOMEN: Soft, nontender, nondistended. EXTREMITIES: No clubbing, cyanosis or edema. SKIN: On the left upper gluteal area there is a 5 cm area of erythema and induration, extremely tender to touch. There is also an area about 2 cm wide in the center that appears to have necrotic skin and it is fluctuant. No active drainage currently; however, there is definitely signs of an abscess there. LABORATORY DATA: White count 16.6, hemoglobin 12, platelets 378. ASSESSMENT/PLAN: The patient is a 36-year-old female currently being treated for anxiety and depression, who also happens to have a left upper gluteal abscess. At this time the abscess has failed p.o. antibiotic treatment. Therefore, recommendation is to proceed with incision and drainage in the operating room. The risks and benefits of the procedure were discussed in detail with the patient. Informed consent is obtained and plan is to do the procedure first thing this morning.
--- NOTE | 2016-12-11 11:24 | RO ---
DATE OF PROCEDURE: 12/11/2016 PREOPERATIVE DIAGNOSIS: Left gluteal abscess. POSTOPERATIVE DIAGNOSIS: Left gluteal abscess. PROCEDURE: 1. Incision and drainage of left gluteal abscess. 2. Excision and sharp debridement of skin and subcutaneous tissue overlying and surrounding the gluteal abscess. SURGEON: Dr. Poncho Espinoza PORCELAIN TECHNICIAN: None. ANESTHESIA: IV sedation with 6 mL of 1% local. COMPLICATIONS: None. INDICATIONS FOR PROCEDURE: The patient is a 36-year-old female who has had a week-long history of a left gluteal abscess that has failed outpatient and by mouth treatment. Recommendation is to proceed with incision and drainage. The risks and benefits of the procedure not limited, but including bleeding, infection and need for further surgery were discussed in detail with the patient. Informed consent was obtained and the procedure was planned. PROCEDURE: The patient was brought back to operating room three. After sufficient sedation, she was placed in the right lateral decubitus position. The left gluteal area was sterilely prepped and draped with Betadine. Next, a time-out was done to confirm proper patient and proper procedure. Following that, a 15 blade scalpel was used to make a 2 cm incision through the center of the necrotic skin. The abscess cavity was then evacuated with suction. Next, a 15 blade scalpel was used to do sharp debridement to remove an area approximately 2 x 2 cm in size that was all necrotic overlying the top of this abscess cavity. Once that was completed, some sharp debridement was done around the edges of this wound and into the base into the subcutaneous tissues. Once that was completed, all the wound edges were clean and all the necrotic tissue had been removed. The wound was irrigated with normal saline. The wound was then packed with half inch iodoform packing and covered with a dry sterile gauze and then tape. The patient was then awakened from anesthesia and sent to the postanesthesia care unit (PACU) in stable condition.
[2016-12-11] MEDS: BACTRIM 160MG/800MG DS TAB PO SCH ×2 (12:30→22:53)
[2016-12-11] MEDS: hydrOXYzine 50 MG TAB PO PRN (13:27)
[2016-12-11] MEDS: NORCO, ANEXSIA 5/325MG TABLET (HYDROcodone/ACETAMINOPHEN) PO PRN ×2 (15:44→22:56)
[2016-12-11 18:00] VITALS: BP 109/66
--- NOTE | 2016-12-11 19:55 | IPN ---
DATE: 12/11/2016 SUBJECTIVE: "I'm about the same." OBJECTIVE: The patient just had surgery for her abscess. No major changes from yesterday. The patient continues depressed and anxious, although reported that the panic attacks have been decreased. No side effects from medication. The patient was able to sleep better last night. MENTAL STATUS EXAMINATION: The patient is dressed in [facility]. The patient is cooperative. Speech is slow and monotone. Mood is depressed and anxious. Affect is labile. No delusions or hallucinations. Memory is fair. Patient is fully oriented. Associations are intact. Thinking is logical. Thought content is appropriate. The patient is able to contract for safety in the unit. Insight and judgment is poor. ASSESSMENT: 1. Major depressive disorder. 2. Alcohol dependency in full remission. PLAN: 1. Continue with Effexor XR 75 mg by mouth daily. 2. Continue trazodone 100 mg by mouth at bedtime. 3. Continue Vistaril as needed for anxiety. 4. Continue medication management, individual and group therapy.
[2016-12-11] MEDS: traZODone 100 MG TAB PO SCH (22:53)
--- NOTE | 2016-12-11 23:29 | EDDOCDS ---
Nurse's Notes [facility] Name: Rosario Amin Age: 36 yrs Sex: Female : 1980 Arrival Date: 12/09/2016 Time: 16:41 Bed [facility] Private MD: NO PRIMARY PHYSICIAN, . Diagnosis: Major depressive disorder, recurrent Presentation: 12/09 16:50 Presenting complaint: Patient states: that she has been off of her meds for "awhile" ms18 and her depression has gotten worse. Pt states that she is very stressed at this time. Mental Health Triage Level: Level 2: The patient displays active suicidal ideations. Adult Sepsis Screening: The patient does not have new or worsening altered mentation. Patient's respiratory rate is less than 22. Systolic blood pressure is greater than 100. Patient has a qSOFA score of 0- Negative Sepsis Screen. Suicide/Homicide risk assessment- The patient admits to and/or has been reported to be having suicidal ideations. Status: Patient is not a dental services director or dependent. Transition of care: patient was not received from another setting of care. 16:50 Acuity: WERNER Level 3 ms18 16:50 Method Of Arrival: Walkin/Carried/Asstd ms18 Triage Assessment: 16:54 General: Appears in no apparent distress, comfortable, Behavior is anxious, appropriate ms18 for age, cooperative. Pain: Denies pain. HIV screening NA for this visit Offered previously. Neurological: No deficits noted. Respiratory: No deficits noted. Derm: Skin is pink, warm & dry. 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 Prozac Oral once daily pt states it has been 4 years since she has taken this med 2. Xanax Unknown Oral Unknown last dose was 4 years ago - PMHx: Anxiety; Asthma; Depression; Migraine Headaches; - PSHx: D & C; Tubal ligation; - The history from nurses notes was reviewed: and I agree with what is documented. - Social history: Smoking status: Patient uses tobacco products, current every day smoker. No barriers to communication noted, The patient speaks fluent Swedish. - Family history: Not pertinent. - : The pt / caregiver states he / she is not on anticoagulants. Home medication list is obtained from the patient. - Hospitalizations: : No recent hospitalization is reported. - Exposure Risk Screening:: None identified. - Immunization history:: All immunizations up-to-date. - Social history:: the patient smokes cigarettes the patient drinks alcohol. Screenin:24 Screening information is obtained from the patient. Fall risk: No risks identified. rw1 Assistance ADL's: requires no assistance with activities of daily living. Abuse/DV Screen: The patient / caregiver reports he/she is: not in a situation that causes fear, pain or injury. Nutritional screening: No deficits noted. Advance Directives: Currently, there is no health care proxy. home support is adequate. Assessment: 17:14 General: Appears in no apparent distress, Behavior is quiet. Pain: Location: left ld5 gluteus cynthia Pain currently is 7 out of 10 on a pain scale. Neurological: Level of Consciousness is awake, alert. Respiratory: Airway is patent Respiratory effort is even, unlabored, Breath sounds are clear bilaterally. GI: Abdomen is non- distended Bowel sounds present X 4 quads. Derm: Abscess located on left gluteus cynthia bandaid covering area at this time, redness extending around area. 17:32 General: Pt aware of need for urine specimen. When asked to provide it, pt states ld5 "maybe in a minute". Will continue to monitor. 17:59 General: Pt requesting to speak with this RN. Pt states "can you tell me what I am ld5 waiting on? I am feeling better and I don't think that I need to be admitted". Will continue to monitor. 18:10 General: CRISTY Lindsey in to speak with pt. ld5 18:32 General: Pt requesting pain medication. Provider made aware and pt medicated per ld5 orders. Will continue to monitor. 19:40 General: Dressing changed to abscess site. Pt tolerated well. Pt's pill bottle of [place] ld5 brought to pharmacy. paperwork placed in chart. 20:26 General: Appears in no apparent distress, comfortable, Behavior is quiet, resting on rw1 stretcher, safety maintained will monitor. Respiratory: Airway is patent Respiratory effort is even, unlabored. Derm: Skin is pink, warm & dry. normal. 21:18 Reassessment: Patient appears in no apparent distress at this time. awake resting on rw1 stretcher, safety maintained will monitor.. 22:24 Reassessment: Patient appears in no apparent distress at this time. Patient denies pain rw1 at this time. awake resting on stretcher, safety maintained will monitor.. Mental Health Eval: 18:14 Mental health consult is initiated at 17:45. Status: The patient is not a ms dental services director or dependent. [facility]: The patient is not an established patient of [facility]. Referral Information: Evaluation referral is generated by the patient himself / herself. The patient was referred for evaluation because depression, anxiety, panic attacks. Subjective: The patients chief complaint is Pt. states she has history of anxiety and depression. Has not been to counseling or has not taken meds for such for many years .She reports that today she had a panic attack when hanging around with a couple of friends. She reports she has had panic attacks in past, most recently one month ago. Pt. denies SI/HI to this worker but stated to nurse upon arrival that she did have thoughts of harming self. She did report to ER that she was not suicidal but 'feels like she could..' Pt. states she is depressed. Pt. reports recent 8 yr. relationship break up which she is upset about. Delusions are denied. Patient's mood is depressed, Hallucinations are denied. Mental Health history: anxiety, depression, Mental Health Admissions: None. Current Outpatient Mental Health Services: None. Current living environment is The patient currently lives with a roommate, . Patient presents to Emergency Department with the following symptoms within the past 2 weeks: anxiety, depressed mood, relational problem, suicidal ideation with no plan. Substance abuse: Pt denies. Mental status exam: Patients appearance is appropriate, Patient's behavior is cooperative, Speech is normal. Affect is appropriate. Mood is depressed. Hallucinations are denied. Appetite is normal. Memory is good. Energy level is normal. Content of thought is normal. Thought process is intact. Cognitive level is oriented to person, place, time and situation Patient's insight is fair. Judgement is fair. Rapport with interviewer is guarded. Suicidal Ideation is present with no specific plan. Homicidal ideation is denied. 20:45 Disposition: Medically cleared for disposition by Darren Cuevas DO Psychiatric Consult ms is performed by phone with Dr Tab Greer MD. [facility] Admission Criteria: The patient is experiencing suicidal ideation. The patient requires continuous observation and/or control to protect self, others or property. Legal Status: Patient's legal status will be Emergency admission: 39. [place] Safe Act: [place] Safe Act is applicable to this patient. The patient poses a risk to self or other and the Nursing Tunnel Miner has been notified. He/She will enter the patient's data. DSM-V Differential Diagnosis: Unspecified Depressive Disorder (F32.9). Insurance Pre-Certification: Not Required. Vital Signs: 16:44 BP 125 / 98; Pulse 80; Resp 18; Temp 97.3(O); Pulse Ox 100% on R/A; Weight 56.7 kg (R); ct3 Height 5 ft. 2 in. (157.48 cm) (R); Pain 0/10; 22:24 BP 134 / 91; Pulse 92; Resp 18; Temp 96.9(O); Pulse Ox 100% on R/A; Pain 0/10; rw1 16:44 Body Mass Index 22.86 (56.70 kg, 157.48 cm) ct3 Vitals: 16:44 Log In Time: December 09, 2016 at 16:43. ct3 16:45 RN notified that patient meets Red Flag criteria. ct3 ED Course: 16:43 Patient visited by Aubrie De La Cruz PCA. ct3 16:43 Patient moved to [employer] ct3 16:44 NO PRIMARY PHYSICIAN, . is Private Physician. ct3 16:50 Tayler Stallings,YOEL is Primary Nurse. ms18 16:52 Triage Initiated ms18 16:55 Latrell Wheeler MD is Attending Physician. pc 16:55 Patient moved to [facility] ms18 17:03 Patient visited by Carlos Barba. dpm 17:17 Patient visited by Josi Mcdaniel,YOEL. ld5 17:32 Acetaminophen Level Sent. ld5 17:32 Basic Metabolic Profile Sent. ld5 17:32 Complete Blood Count Sent. ld5 17:32 Ethyl Alcohol (ethanol) Sent. ld5 17:32 HCG,Serum Qualitative Sent. ld5 17:32 Liver Profile Sent. ld5 17:32 Salicylate Level Sent. ld5 17:32 Thyroid Stimulating Hormone Sent. ld5 17:33 Patient visited by Josi Mcdaniel,YOEL. ld5 17:35 Patient visited by Latrell Wheeler MD. pc 17:55 Patient visited by Kimberly Henley RN. ca7 17:58 [facility] Payment Agreement was scanned into [employer] and attached to record. zo 18:00 Patient visited by Josi Mcdaniel RN. ld5 18:04 Patient visited by Carlos Barba. dpm 18:25 Patient visited by Carlos Barba. dpm 18:33 Patient visited by Josi Mcdaniel RN. ld5 18:43 Patient visited by Carlos Barba. dpm 19:01 Patient visited by Bryant Zepeda. tr 19:15 Patient visited by Bryant Zepeda. tr 19:19 Drug Eval Toxicology ED Only Sent. rw1 19:25 Attending Physician role handed off by Latrell Wheeler MD cs11 19:25 Darren Cuevas DO is Attending Physician. cs11 19:29 Patient visited by Bryant Zepeda. tr 19:44 Patient visited by Bryant Zepeda. tr 19:59 Patient visited by Bryant Zepeda. tr 20:15 Patient visited by Diego Lugo LPN. rw1 20:26 Tab Greer MD is Hospitalizing Provider. cs11 20:31 Patient visited by Bryant Zepeda. tr 20:43 [facility] Legal paperwork was scanned into [employer] and attached to record. ms 20:44 Patient visited by Bryant Zepeda. tr 21:00 Patient visited by Bryant Zepeda. tr 21:16 Patient visited by Bryant Zepeda. tr 21:29 Patient visited by Bryant Zepeda. tr 21:46 Patient visited by Bryant Zepeda. tr 22:01 Patient visited by Bryant Zepeda. tr 22:15 Patient visited by Bryant Zepeda. tr 22:24 The patient / caregiver is instructed regarding the plan of care and ED course. rw1 22:24 No IV's were initiated during this patient's visit. No procedures done that require rw1 assistance. Administered Medications: 18:28 Drug: HYDROcodone-acetaminophen 1 tabs [hydrocodone 5 mg-acetaminophen 325 mg tablet (1 ld5 tabs)] Route: PO; 20:00 Follow up: Response: Pain is decreased rw1 Attachments: 20:43 [facility] Legal paperwork ms Order Results: Lab Order: Acetaminophen Level; SPEC'M 12/09/16 17:29 Test: ACETAMINOPHEN LEVEL; Value: < 2.0; Range: 10.0-30.0; Abnormal: Below low normal; Units: UG/ML; Status: F Lab Order: Basic Metabolic Profile; SPEC'M 12/09/16 17:29 Test: GLUCOSE, FASTING; Value: 94; Range: 70-105; Units: MG/DL; Status: F Test: BLOOD UREA NITROGEN; Value: 7; Range: 7-18; Units: MG/DL; Status: F Test: CREATININE FOR GFR; Value: 0.71; Range: 0.55-1.02; Units: MG/DL; Status: F Test: SODIUM LEVEL; Range: 136-145; Units: MEQ/L; Status: I Test: POTASSIUM SERUM; Range: 3.5-5.1; Units: MEQ/L; Status: I Test: CHLORIDE LEVEL; Range: 98-107; Units: MEQ/L; Status: I Test: CARBON DIOXIDE LEVEL; Range: 21-32; Units: MEQ/L; Status: I Test: ANION GAP; Range: 8-16; Units: MEQ/L; Status: I Test: CALCIUM LEVEL; Range: 8.5-10.1; Units: MG/DL; Status: I Test: GLOMERULAR FILTRATION RATE; Value: > 60.0; Range: >60; Status: F Test: SODIUM LEVEL; Value: 141; Range: 136-145; Units: MEQ/L; Status: F Test: POTASSIUM SERUM; Value: 4.4; Range: 3.5-5.1; Units: MEQ/L; Status: F Test: CHLORIDE LEVEL; Value: 103; Range: 98-107; Units: MEQ/L; Status: F Test: CARBON DIOXIDE LEVEL; Value: 29; Range: 21-32; Units: MEQ/L; Status: F Test: ANION GAP; Value: 9; Range: 8-16; Units: MEQ/L; Status: F Test: CALCIUM LEVEL; Value: 9.3; Range: 8.5-10.1; Units: MG/DL; Status: F Test Note: ; Units are mL/min/1.73 m2 Chronic Kidney Disease Staging per NKF: Stage I & II GFR >=60 Normal to Mildly Decreased Stage III GFR 30-59 Moderately Decreased Stage IV GFR 15-29 Severely Decreased Stage V GFR <15 Very Little GFR Left ESRD GFR <15 on BENEFITS CLERK Lab Order: Complete Blood Count; SPEC'M 12/09/16 17:29 Test: WHITE BLOOD COUNT; Value: 16.6; Range: 4.0-10.0; Abnormal: Above high normal; Units: K/mm3; Status: F Test: RED BLOOD COUNT; Value: 3.88; Range: 4.00-5.40; Abnormal: Below low normal; Units: M/mm3; Status: F Test: HEMOGLOBIN; Value: 12.0; Range: 12.0-16.0; Units: g/dl; Status: F Test: HEMATOCRIT; Value: 35.7; Range: 36.0-47.0; Abnormal: Below low normal; Units: %; Status: F Test: MEAN CORPUSCULAR VOLUME; Value: 92.2; Range: 80.0-96.0; Units: fl; Status: F Test: MEAN CORPUSCULAR HEMOGLOBIN; Value: 30.9; Range: 27.0-33.0; Units: pg; Status: F Test: MEAN CORPUSCULAR HGB CONC; Value: 33.5; Range: 32.0-36.5; Units: g/dl; Status: F Test: RED CELL DISTRIBUTION WIDTH; Value: 13.1; Range: 11.5-14.5; Units: %; Status: F Test: PLATELET COUNT, AUTOMATED; Value: 378; Range: 150-450; Units: k/mm3; Status: F Lab Order: Drug Eval Toxicology ED Only; SPEC'M 12/09/16 19:17 Test: AMPHETAMINES LEVEL URINE; Value: POSITIVE; Range: NEGATIVE; Abnormal: Above high normal; Status: F Test: BARBITURATES URINE; Value: NEGATIVE; Range: NEGATIVE; Status: F Test: BENZODIAZEPINES URINE; Value: NEGATIVE; Range: NEGATIVE; Status: F Test: CANNABINOIDS URINE; Value: NEGATIVE; Range: NEGATIVE; Status: F Test: COCAINE METABOLITE URINE; Value: NEGATIVE; Range: NEGATIVE; Status: F Test: METHADONE URINE; Value: NEGATIVE; Range: NEGATIVE; Status: F Test: OPIATES URINE; Value: POSITIVE; Range: NEGATIVE; Abnormal: Above high normal; Status: F Test: TRICYCLIC ANTIDEPRESS URINE; Value: NEGATIVE; Range: NEGATIVE; Status: F Test Note: ; ALL PRESUMPTIVE POSITIVE FINDINGS ARE UNCONFIRMED NORMAL VALUES THRESHOLD IN NG/ML AMPHETAMINES 1000 METHAMPHETAMINES 1000 BARBITURATES 300 BENZODIAZEPINES 300 CANNABINOIDS (THC) 50 COCAINE METABOLITE 300 METHADONE 300 OPIATES 300 PHENCYCLIDINE 25 TRICYCLIC ANTIDEPRESSANTS 1000 RESULTS ARE FOR MEDICAL PURPOSES ONLY. ALL URINE SPECIMENS WILL BE SAVED FOR 3 DAYS. IF CONFIRMATION OF A PRESUMPTIVE POSTIVE SCREEN RESULT IS DESIRED, CALL CHEMISTRY ([phone]) AND REQUEST URINE TO BE SENT TO REFERENCE LAB. FOR A LIST OF CLOSELY RELATED COMPOUNDS PLEASE CALL THE LAB. Lab Order: Ethyl Alcohol (ethanol); [facility] 12/09/16 17:29 Test: ETHYL ALCOHOL (ETHANOL); Value: < 0.003; Range: 0.000-0.010; Units: %; Status: F Lab Order: HCG,Serum Qualitative; [facility] 12/09/16 17:29 Test: HCG, SERUM QUALITATIVE; Value: NEGATIVE; Range: NEGATIVE; Status: F Lab Order: Liver Profile; [facility] 12/09/16 17:29 Test: AST/SGOT; Value: 13; Range: 15-37; Abnormal: Below low normal; Units: U/L; Status: F Test: ALT/SGPT; Value: 25; Range: 12-78; Units: U/L; Status: F Test: ALKALINE PHOSPHATASE; Value: 107; Range: 45-117; Units: U/L; Status: F Test: BILIRUBIN,TOTAL; Value: 0.1; Range: 0.2-1.0; Abnormal: Below low normal; Units: MG/DL; Status: F Test: BILIRUBIN,DIRECT; Value: < 0.1; Range: 0.0-0.2; Units: MG/DL; Status: F Test: TOTAL PROTEIN; Value: 6.9; Range: 6.4-8.2; Units: GM/DL; Status: F Test: ALBUMIN; Value: 3.3; Range: 3.2-5.2; Units: GM/DL; Status: F Test: ALBUMIN/GLOBULIN RATIO; Value: 0.92; Range: 1.00-1.93; Abnormal: Below low normal; Status: F Lab Order: Salicylate Level; [facility] 12/09/16 17:29 Test: SALICYLATE LEVEL; Value: 2.1; Range: 5.0-30.0; Abnormal: Below low normal; Units: MG/DL; Status: F Lab Order: Thyroid Stimulating Hormone; SPEC'M 12/09/16 17:29 Test: THYROID STIMULATING HORMONE; Value: 1.360; Range: 0.358-3.740; Units: uIU/ML; Status: F Outcome: 20:26 Decision to Hospitalize by Provider. cs11 22:24 Discharge Assessment: Patient awake, alert and oriented x 3. No cognitive and/or rw1 functional deficits noted. Patient verbalized understanding of disposition instructions. patient administered narcotics - yes. Patient was admitted to the hospital or transferred to another facility. The following High Risk Discharge criteria are identified: Admitted to Psych accompanied by tech, via wheelchair, with chart. Condition: stable. No special radiology studies were completed. Property removed, inventory done, secured in belongings bag- given to [facility] staff. 22:28 Patient left the ED. rw1 Signatures: Latrell Wheeler MD MD pc Maria Lindsey, PSA PSA ms Katelyn, Diego Thomason,GLUING MACHINE OPERATOR GLUING MACHINE OPERATOR rw1 Alexsander Alfaro Laura,RN RN ld5 Aubrie De La Cruz, SYRUP MIXER ASSISTANT SYRUP MIXER ASSISTANT ct3 Carlos Barba dpm, Craig, DO DO cs11 Kimberly Henley, YOEL RN ca7 Tayler Stallings RN RN ms18 Chart Complete MTDD
--- NOTE | 2016-12-11 23:29 | EDDOCDS ---
Physician Documentation [facility] Name: Rosario Amin Age: 36 yrs Sex: Female : 1980 Arrival Date: 12/09/2016 Time: 16:41 Bed [facility] Private MD: NO PRIMARY PHYSICIAN, . Disposition: 12/09/16 20:26 Hospitalization ordered by Tab Greer for Inpatient Admission. Preliminary diagnosis is Major depressive disorder, recurrent. - Bed requested for Admit. - Status is Inpatient Admission. rw1 - Condition is Stable. - Problem is an ongoing problem. - Symptoms have improved. HPI: 12/09 17:31 This 36 yrs old Female presents to ER via Walkin/Carried/Asstd with pc complaints of Depression. 17:31 The history is obtained from the patient. The patient presents to the emergency pc department with depression. At their worst, the symptoms were moderate. In the emergency department, the symptoms are unchanged. She stopped her meds a while ago and feels her depression is out of control. She denies SI but feels "like I could". The patient has experienced similar episodes in the past, multiple times. The patient has been recently seen at the [facility], this week, for a buttocks abscess. Historical: - Allergies: Keflex (Hives); - Home Meds: 1. Prozac Oral once daily pt states it has been 4 years since she has taken this med 2. Xanax Unknown Oral Unknown last dose was 4 years ago - PMHx: Anxiety; Asthma; Depression; Migraine Headaches; - PSHx: D & C; Tubal ligation; - The history from nurses notes was reviewed: and I agree with what is documented. - Social history: Smoking status: Patient uses tobacco products, current every day smoker. No barriers to communication noted, The patient speaks fluent Estonian. - Family history: Not pertinent. - : The pt / caregiver states he / she is not on anticoagulants. Home medication list is obtained from the patient. - Hospitalizations: : No recent hospitalization is reported. - Exposure Risk Screening:: None identified. - Immunization history:: All immunizations up-to-date. - Social history:: the patient smokes cigarettes the patient drinks alcohol. 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 The psychiatric and neurological components pc are also addressed in the HPI. Exam: 17:31 General Appearance: alert, no acute distress. pc 17:31 ENT: ear, nose and throat normal, pharynx normal. 17:31 Eyes: pupils equal, round and reactive to light, extraocular motions intact. 17:31 Neck: The exam reveals no acute abnormalities. ROM is normal and painless. No nuchal rigidity is noted.. 17:31 Respiratory: breathing is even and unlabored, breath sounds are normal. 17:31 Cardiovascular: regular pulse rate, regular heart rhythm, normal heart sounds, equal and full pulses bilaterally. 17:31 Abdomen: soft, non-tender, no organomegaly, normal bowel sounds. 17:31 Skin: skin color is normal, warm, dry. 17:31 Extremities: The extremities have a grossly normal appearance. 17:31 Neuro: alert, oriented to person, place and time, cranial nerves normal as tested, no motor deficits, no sensory deficits. 17:31 Psych: mood is depressed, tearful, affect is flat. Vital Signs: 16:44 BP 125 / 98; Pulse 80; Resp 18; Temp 97.3(O); Pulse Ox 100% on R/A; Weight 56.7 kg / ct3 125 lbs (R); Height 5 ft. 2 in. (157.48 cm) (R); Pain 0/10; 22:24 BP 134 / 91; Pulse 92; Resp 18; Temp 96.9(O); Pulse Ox 100% on R/A; Pain 0/10; rw1 16:44 Body Mass Index 22.86 (56.70 kg, 157.48 cm) ct3 MDM: 17:24 Consult PFS/PSA/Fur Mixer Operator: Patient's case requires discussion with on-call pc Psychiatrist ordered. 17:24 PSA/PFS to call Nursing Egg Sorter, to enter patient data on [place] Safe Act if patient pc involuntarily admitted or transferred for SI or HI ordered. 17:24 Confirm accurate psychiatric medication list and times of last dosage ordered. pc 17:24 Detain Pt Until Medically/PFS Cleared ordered. pc 17:25 Acetaminophen Level Ordered. EDMS 17:25 Basic Metabolic Profile Ordered. EDMS 17:25 Complete Blood Count Ordered. EDMS 17:25 Drug Eval Toxicology ED Only Ordered. EDMS 17:25 Ethyl Alcohol (ethanol) Ordered. EDMS 17:25 HCG,Serum Qualitative Ordered. EDMS 17:25 Liver Profile Ordered. EDMS 17:25 Salicylate Level Ordered. EDMS 17:25 Thyroid Stimulating Hormone Ordered. EDMS 17:31 Differential diagnosis: depression. Plan: labs, PFS eval. pc 17:33 REGULAR DIET PLASTIC SCHMIDT+DIET ordered. EDMS 17:55 Financial registration complete. zo 17:58 [facility] Payment Agreement was scanned into [employer] and attached to record. zo 18:27 Acetaminophen Level Reviewed. pc 18:27 Complete Blood Count Reviewed. pc 18:27 Liver Profile Reviewed. pc 18:27 Salicylate Level Reviewed. pc 18:27 Basic Metabolic Profile Reviewed. pc 18:27 Ethyl Alcohol (ethanol) Reviewed. pc 18:27 HCG,Serum Qualitative Reviewed. pc 18:27 Thyroid Stimulating Hormone Reviewed. pc 18:28 HYDROcodone-acetaminophen 5 mg-325 mg 1 tabs PO once ordered. ld5 18:49 Consult PFS/PSA/Fur Mixer Operator: Patient's case requires discussion with on-call ms Psychiatrist complete. 18:49 PSA/PFS to call Nursing Egg Sorter, to enter patient data on [place] Safe [place] if patient ms involuntarily admitted or transferred for SI or HI complete. 20:27 BED REQUEST+ADM ordered. EDMS 20:29 Ad[facility]: ordered. EDMS 20:43 [facility] Legal paperwork was scanned into [employer] and attached to record. ms 22:20 Drug Eval Toxicology ED Only Reviewed. cs11 Administered Medications: 18:28 Drug: HYDROcodone-acetaminophen 1 tabs [hydrocodone 5 mg-acetaminophen 325 mg tablet (1 ld5 tabs)] Route: PO; 20:00 Follow up: Response: Pain is decreased rw1 Signatures: Dispatcher [employer] EDMS Latrell Wheeler MD MD pc Stone, Mary, PSA PSA ms BrittneyDiego,WATER SOFTENER SERVICER WATER SOFTENER SERVICER rw1 Alexsander Alfaro Laura,RN RN ld5 Darren Cuevas DO DO cs11 Tayler Stallings RN RN ms18 The chart was reviewed and I authenticate all verbal orders and agree with the evaluation and treatment provided.Attachments: 17:58 [facility] Payment Agreement zo Chart Complete MTDD
--- NOTE | 2016-12-11 23:29 | EDDOCDS ---
Physician Documentation [facility] Name: Rosario Amin Age: 36 yrs Sex: Female : 1980 Arrival Date: 12/09/2016 Time: 16:41 Bed BHU2 Private MD: NO PRIMARY PHYSICIAN, . Disposition: 12/09/16 20:26 Hospitalization ordered by Tab Greer for Inpatient Admission. Preliminary diagnosis is Major depressive disorder, recurrent. - Bed requested for Admit. - Status is Inpatient Admission. rw1 - Condition is Stable. - Problem is an ongoing problem. - Symptoms have improved. HPI: 12/09 17:31 This 36 yrs old Female presents to ER via Walkin/Carried/Asstd with pc complaints of Depression. 17:31 The history is obtained from the patient. The patient presents to the emergency pc department with depression. At their worst, the symptoms were moderate. In the emergency department, the symptoms are unchanged. She stopped her meds a while ago and feels her depression is out of control. She denies SI but feels "like I could". The patient has experienced similar episodes in the past, multiple times. The patient has been recently seen at the [facility], this week, for a buttocks abscess. Historical: - Allergies: Keflex (Hives); - Home Meds: 1. Prozac Oral once daily pt states it has been 4 years since she has taken this med 2. Xanax Unknown Oral Unknown last dose was 4 years ago - PMHx: Anxiety; Asthma; Depression; Migraine Headaches; - PSHx: D & C; Tubal ligation; - The history from nurses notes was reviewed: and I agree with what is documented. - Social history: Smoking status: Patient uses tobacco products, current every day smoker. No barriers to communication noted, The patient speaks fluent Indonesian. - Family history: Not pertinent. - : The pt / caregiver states he / she is not on anticoagulants. Home medication list is obtained from the patient. - Hospitalizations: : No recent hospitalization is reported. - Exposure Risk Screening:: None identified. - Immunization history:: All immunizations up-to-date. - Social history:: the patient smokes cigarettes the patient drinks alcohol. HOSPITALITY JOB TITLES: 16:54 LMP 11/20/2016 ms18 ROS: 17:31 All systems are negative except as listed. The psychiatric and neurological components pc are also addressed in the HPI. Exam: 17:31 General Appearance: alert, no acute distress. pc 17:31 ENT: ear, nose and throat normal, pharynx normal. 17:31 Eyes: pupils equal, round and reactive to light, extraocular motions intact. 17:31 Neck: The exam reveals no acute abnormalities. ROM is normal and painless. No nuchal rigidity is noted.. 17:31 Respiratory: breathing is even and unlabored, breath sounds are normal. 17:31 Cardiovascular: regular pulse rate, regular heart rhythm, normal heart sounds, equal and full pulses bilaterally. 17:31 Abdomen: soft, non-tender, no organomegaly, normal bowel sounds. 17:31 Skin: skin color is normal, warm, dry. 17:31 Extremities: The extremities have a grossly normal appearance. 17:31 Neuro: alert, oriented to person, place and time, cranial nerves normal as tested, no motor deficits, no sensory deficits. 17:31 Psych: mood is depressed, tearful, affect is flat. Vital Signs: 16:44 BP 125 / 98; Pulse 80; Resp 18; Temp 97.3(O); Pulse Ox 100% on R/A; Weight 56.7 kg / ct3 125 lbs (R); Height 5 ft. 2 in. (157.48 cm) (R); Pain 0/10; 22:24 BP 134 / 91; Pulse 92; Resp 18; Temp 96.9(O); Pulse Ox 100% on R/A; Pain 0/10; rw1 16:44 Body Mass Index 22.86 (56.70 kg, 157.48 cm) ct3 MDM: 17:24 Consult PFS/PSA/Logging Shovel Operator: Patient's case requires discussion with on-call pc Psychiatrist ordered. 17:24 PSA/PFS to call Nursing Mental Hygienist, to enter patient data on [place] Safe Act if patient pc involuntarily admitted or transferred for SI or HI ordered. 17:24 Confirm accurate psychiatric medication list and times of last dosage ordered. pc 17:24 Detain Pt Until Medically/PFS Cleared ordered. pc 17:25 Acetaminophen Level Ordered. EDMS 17:25 Basic Metabolic Profile Ordered. EDMS 17:25 Complete Blood Count Ordered. EDMS 17:25 Drug Eval Toxicology ED Only Ordered. EDMS 17:25 Ethyl Alcohol (ethanol) Ordered. EDMS 17:25 HCG,Serum Qualitative Ordered. EDMS 17:25 Liver Profile Ordered. EDMS 17:25 Salicylate Level Ordered. EDMS 17:25 Thyroid Stimulating Hormone Ordered. EDMS 17:31 Differential diagnosis: depression. Plan: labs, PFS eval. pc 17:33 REGULAR DIET PLASTIC SCHMIDT+DIET ordered. EDMS 17:55 Financial registration complete. zo 17:58 [facility] Payment Agreement was scanned into [employer] and attached to record. zo 18:27 Acetaminophen Level Reviewed. pc 18:27 Complete Blood Count Reviewed. pc 18:27 Liver Profile Reviewed. pc 18:27 Salicylate Level Reviewed. pc 18:27 Basic Metabolic Profile Reviewed. pc 18:27 Ethyl Alcohol (ethanol) Reviewed. pc 18:27 HCG,Serum Qualitative Reviewed. pc 18:27 Thyroid Stimulating Hormone Reviewed. pc 18:28 HYDROcodone-acetaminophen 5 mg-325 mg 1 tabs PO once ordered. ld5 18:49 Consult PFS/PSA/Logging Shovel Operator: Patient's case requires discussion with on-call ms Psychiatrist complete. 18:49 PSA/PFS to call Nursing Mental Hygienist, to enter patient data [place] Safe [place] if patient ms involuntarily admitted or transferred for SI or HI complete. 20:27 BED REQUEST+ADM ordered. EDMS 20:29 Admit to [facility]: ordered. EDMS 20:43 [facility] Legal paperwork was scanned into [employer] and attached to record. ms 22:20 Drug Eval Toxicology ED Only Reviewed. cs11 Administered Medications: 18:28 Drug: HYDROcodone-acetaminophen 1 tabs [hydrocodone 5 mg-acetaminophen 325 mg tablet (1 ld5 tabs)] Route: PO; 20:00 Follow up: Response: Pain is decreased rw1 Signatures: Dispatcher [employer] EDMS Latrell Wheeler MD MD pc Stone, Mary, PSA PSA ms BrittneyDiego,PORTRAIT PHOTOGRAPHER PORTRAIT PHOTOGRAPHER rw1 Alexsander Alfaro Laura,RN RN ld5 Darren Cuevas DO DO cs11 Tayler Stallings RN RN ms18 The chart was reviewed and I authenticate all verbal orders and agree with the evaluation and treatment provided.Attachments: 17:58 [facility] Payment Agreement zo Chart Complete MTDD
[2016-12-12 06:35] VITALS: BP 88/51
[2016-12-12] MEDS: NICOTINE 21MG/24HR 1 EA TRANSDERMAL TD SCH (08:18)
[2016-12-12] MEDS: NORCO, ANEXSIA 5/325MG TABLET (HYDROcodone/ACETAMINOPHEN) PO PRN ×3 (08:18→20:18)
[2016-12-12] MEDS: VENLAFAXINE **XR** 75MG CAPSULE PO SCH (08:18)
[2016-12-12 08:31] LABS: BASO % 0.5 % (0.0-1.0); EOS # 0.2 K/mm3 (0.0-0.50); EOS % 1.7 % (0.0-3.0); LARGE UNSTAINED CELL # 0.2 K/mm3 (0.0-0.4); LARGE UNSTAINED CELL % 2.6 % (0.0-4.0); LYMPH # 2.9 K/mm3 (1.5-4.5); LYMPH % 31.3 % (24.0-44.0); MEAN CORPUSCULAR HEMOGLOBIN 30.1 pg (27.0-33.0); MEAN CORPUSCULAR HGB CONC 32.3 g/dl (32.0-36.5); MEAN CORPUSCULAR VOLUME 93.2 fl (80.0-96.0); MONO # 0.6 K/mm3 (0.0-0.8); MONO % 6.7 % (0.0-5.0); NEUTROPHILS # 4.8 K/mm3 (1.8-7.7); NEUTROPHILS % 57.3 % (36.0-66.0); PLATELET COUNT, AUTOMATED 407 k/mm3 (150-450); RED CELL DISTRIBUTION WIDTH 13.4 % (11.5-14.5); WHITE BLOOD COUNT 8.4 K/mm3 (4.0-10.0)
--- NOTE | 2016-12-12 11:38 | IPNPDOC ---
Assessment/Plan Date Seen The patient was seen on 12/12/16. Problems Problems: (1) Left buttock abscess Status: Acute Problem Text: * Afebrile. WBC WNL. * Status post I&D as per Dr. Espinoza * Continue wound care as per surgical recommendations. * Bullock one tablet every 6 hours as needed for pain. * Continue Bactrim DS 1 tablet by mouth twice a day. * Continue to monitor. (2) Tobacco use Status: Chronic Problem Text: * NicoDerm Plan / VTE VTE Prophylaxis Ordered?: No (ambulatory) Subjective Review of Systems CC/HPI The patient is a 36-year-old female admitted with a reason for visit of Unspecified Depressive Disorder. Events since last encounter Patient is status post I&D yesterday of left buttock abscess as per Dr. Espinoza. She has showered this morning. Her nurse has removed her dressing and packing. There is no drainage noted. Constitutional: Denies: Chills, Fever, Malaise, Night Sweats, Weakness Pulmonary: Denies: Cough, Dyspnea Cardiovascular: Denies: Chest Pain, Lt Headedness, Orthopnea, Palpitations, Paroxysmal Noc. Dyspnea Gastrointestinal: Denies: Abdominal Pain, Diarrhea, Nausea, Vomiting Genitourinary: Denies: Dysuria, Frequency, Incontinence, Retention Objective Physical Examination General Exam: Positive: Alert Eye Exam: Positive: PERRLA Chest Exam: Positive: Clear to auscultation, Normal air movement Heart Exam: Positive: Normal S1, Normal S2, Rate Normal, Regular Rhythm, Negative: Murmurs, Rubs Skin Exam: Positive: Nl turgor and temperature, Other skin issue (dressing is removed from the left buttock I&D. There is no drainage noted. Packing has been removed. Nursing is now replacing the packing, clean dressing is applied. Mild erythema surrounds the area.) Vital Signs/I&O Vital Signs Date Time Temp Pulse Resp B/P Pulse Ox O2 Delivery O2 Flow Rate FiO2 12/12/16 09:15 16 12/12/16 06:35 96.2 78 88/51 12/11/16 09:27 96 Room Air 12/11/16 08:40 2 I&O- Last 24 Hours up to 6 AM 12/12/16 06:00 Intake Total 630 ml Output Total 0 ml Balance 630 ml Laboratory Data Labs 24H Laboratory Tests 2 12/12/16 08:14: White Blood Count 8.4, Red Blood Count 3.94L, Hemoglobin 11.8L, Hematocrit 36.7 , Mean Corpuscular Volume 93.2, Mean Corpuscular Hemoglobin 30.1, Mean Corpuscular Hemoglobin Concent 32.3, Red Cell Distribution Width 13.4, Platelet Count 407, Neutrophils (%) (Auto) 57.3, Lymphocytes (%) (Auto) 31.3, Monocytes ( %) (Auto) 6.7H, Eosinophils (%) (Auto) 1.7, Basophils (%) (Auto) 0.5, Neutrophils # (Auto) 4.8, Lymphocytes # (Auto) 2.9, Monocytes # (Auto) 0.6, Eosinophils # (Auto) 0.2, Basophils # (Auto) 0.0, Large Unclassified Cells # 0.2 , Large Unclassified Cells % 2.6 CBC/BMP Laboratory Tests 12/12/16 08:14 Red Blood Count 3.94 L, Mean Corpuscular Volume 93.2, Mean Corpuscular Hemoglobin 30.1, Mean Corpuscular Hemoglobin Concent 32.3, Red Cell Distribution Width 13.4, Neutrophils (%) (Auto) 57.3, Lymphocytes (%) (Auto) 31.3, Monocytes (%) (Auto) 6.7 H, Eosinophils (%) (Auto) 1.7, Basophils (%) ( Auto) 0.5, Neutrophils # (Auto) 4.8, Lymphocytes # (Auto) 2.9, Monocytes # (Auto ) 0.6, Eosinophils # (Auto) 0.2, Basophils # (Auto) 0.0 Microbiology Microbiology 12/10/16 Gram Stain - Final, Complete 12/10/16 Abscess Culture - Final, Complete Staph.aureus Methicillin Resis Kaykay Echeverria Dec 12, 2016 11:37
[2016-12-12] MEDS: BACTRIM 160MG/800MG DS TAB PO SCH (12:02)
--- NOTE | 2016-12-12 12:58 | IPNPDOC ---
[facility] Progress Note Progress Note DATE OF SERVICE: 12/12/16 HISTORY: Commissioned Defence Force Officer met with patient today to assess treatment progress on inpatient unit. Patient indicates she is adjusting to the inpatient environment , recently underwent treatment to abscess to buttock which she indicates remains sensitive, rates pain level 6/10. Patient was observed to be visible on unit, walking in hallway, engaging with peers, and has been attending groups. Patient rates current anxiety level 5/10, depression 5/10, denies suicidal and homicidal ideation, denies audiovisual hallucinations, denies urge to engage in self-injurious behavior. Patient indicates she stopped taking her medications approximately 4 years ago, states she believes most of her depression has to do with a recent breakup of an 8 year relationship. Patient indicates current medication regimen is working well and she denies medication side effects. Patient denies challenges with sleep and denies nightmares, indicates appetite is stable, reports energy level remains low, reports ongoing intermittent challenges with concentration. VITAL SIGNS: See below. NEW TEST RESULTS: 12/12/16 lab results low RBCs, Hgb, total bilirubin, AST, AGR AND elevated Bulloch %. MRSA, being monitored by PA. Endorses history of migraine, denies history of head injury or seizure. HCG negative on admission. UDS positive on admission for opiates and amphetamine. EKG results not found, we'll pursue with PA CURRENT MEDICATIONS: See below. MENTAL STATUS EXAMINATION: Patient is a 36-year-old female who is wasn't and cooperative, mildly disheveled , dressed in hospital clothing, thin, walks with steady gait, appears stated age , makes poor eye contact Speech: Is normal rate, rhythm, volume. Language skills are intact. Thought processes including: Clear, goal-directed. Thought content: Rational, logical, no paranoia Abstract reasoning: Appears intact Description of associations: Appears intact Description of abnormal or psychotic thoughts: denies hallucinations, delusions , preoccupation with violence, homicidal or suicidal ideation, and obsessions. Judgment: Poor Insight: Poor Orientation to [time, place and person]. Recent and remote memory: Appears intact Attention span and concentration: Fair Language: Normal Fund of knowledge: Appears adequate Mood: "I'm ok." Appears depressed, no lability noted. Affect: Blunted, appeasr anxious and depressed DIAGNOSES: Major depressive disorder, recurrent, moderate, alcohol use disorder in remission ASSESSMENT: Patient has been visible on unit, attending groups, engaging with select peers, has been cooperative with staff. Patient indicates her current medication regimen of Effexor, trazodone are effective and denies medication side effects. Patient has also been utilizing hydroxyzine as needed to address symptoms of anxiety, indicates medication is also effective. Patient denies current suicidal and homicidal thinking and is able to effectively engage in the safety planning process, verbalizes awareness of how to access supportive services on the unit if needed. Patient indicates her discharge plan when ready he is to stay with a friend with whom she has been staying since the breakup between herself and her boyfriend. Will monitor patient's response to medications and evaluate resolution of suicidal thinking, patient's safety, and discharge readiness. MANAGEMENT PLAN: Continue Effexor XR 75 mg po q am, continue trazodone 100 mg po hs, and continue hydroxyzine 50 mg po PRN for anxiety Maintain safety precautions Patient to attend groups and participate in unit programming to develop coping strategies Engage patient in discharge planning process and arrange meeting with support system to ensure discharge planning when appropriate Patient to follow up with PCM upon discharge TIME SPENT: 35 minutes Vital Signs Vital Signs Date Time Temp Pulse Resp B/P Pulse Ox O2 Delivery O2 Flow Rate FiO2 12/12/16 09:15 16 12/12/16 06:35 96.2 78 88/51 12/11/16 09:27 96 Room Air 12/11/16 08:40 2 Laboratory Data 24H Labs Laboratory Tests 2 12/12/16 08:14: White Blood Count 8.4, Red Blood Count 3.94L, Hemoglobin 11.8L, Hematocrit 36.7 , Mean Corpuscular Volume 93.2, Mean Corpuscular Hemoglobin 30.1, Mean Corpuscular Hemoglobin Concent 32.3, Red Cell Distribution Width 13.4, Platelet Count 407, Neutrophils (%) (Auto) 57.3, Lymphocytes (%) (Auto) 31.3, Monocytes ( %) (Auto) 6.7H, Eosinophils (%) (Auto) 1.7, Basophils (%) (Auto) 0.5, Neutrophils # (Auto) 4.8, Lymphocytes # (Auto) 2.9, Monocytes # (Auto) 0.6, Eosinophils # (Auto) 0.2, Basophils # (Auto) 0.0, Large Unclassified Cells # 0.2 , Large Unclassified Cells % 2.6 CBC/BMP Laboratory Tests 12/12/16 08:14 Red Blood Count 3.94 L, Mean Corpuscular Volume 93.2, Mean Corpuscular Hemoglobin 30.1, Mean Corpuscular Hemoglobin Concent 32.3, Red Cell Distribution Width 13.4, Neutrophils (%) (Auto) 57.3, Lymphocytes (%) (Auto) 31.3, Monocytes (%) (Auto) 6.7 H, Eosinophils (%) (Auto) 1.7, Basophils (%) ( Auto) 0.5, Neutrophils # (Auto) 4.8, Lymphocytes # (Auto) 2.9, Monocytes # (Auto ) 0.6, Eosinophils # (Auto) 0.2, Basophils # (Auto) 0.0 Current Medications Current Medications Medications (Trade) Dose Ordered Sig/Erwin Route PRN Reason Start Time Stop Time Status Last Admin Dose Admin Acetaminophen (Tylenol Tab) 650 mg Q6HP PRN PO HEADACHE or DISCOMFORT 12/10/16 01:00 01/09/17 00:59 Acetaminophen/ Hydrocodone Bitart ([place], Anexsia 5/325) 1 tab ASDIRECTED PRN PO PAIN 12/11/16 09:00 12/11/16 10:00 DC 12/11/16 09:04 Acetaminophen/ Hydrocodone Bitart ([place], Anexsia 5/325) 1 tab Q6HP PRN PO MILD/MODERATE PAIN (PS 1-7) 12/10/16 01:00 12/17/16 00:59 12/12/16 08:18 Al Hydrox/Mg Hydrox/Simethicone (Mylanta) 30 ml Q4HP PRN PO HEARTBURN/INDIGESTION 12/10/16 01:00 01/09/17 00:59 Fentanyl Citrate (Sublimaze) 25 mcg Q5MP PRN IV PAIN 12/11/16 09:00 12/11/16 10:00 DC 12/11/16 09:09 Home Med (Med Rec Complete!) ASDIRECTED XX 12/09/16 20:45 12/09/16 20:45 DC Hydroxyzine HCl 50 mg 50 mg Q6HP PRN PO ANXIETY 12/10/16 11:30 01/09/17 11:29 12/11/16 13:27 Ketorolac Tromethamine (ToRADol) 30 mg ONCE PRN IV PAIN 12/11/16 09:00 12/11/16 10:00 DC 12/11/16 09:04 Lactated Ringer's (Lactated Ringer'S) 1,000 ml @ 100 mls/hr Q10H IV 12/11/16 09:00 12/11/16 10:00 DC Magnesium Hydroxide (Milk Of Magnesia) 30 ml DAILYPRN PRN PO CONSTIPATION 12/10/16 01:00 01/09/17 00:59 Nicotine (Nicoderm Cq 21mg) 1 patch DAILY TD 12/10/16 09:00 01/09/17 08:59 Ondansetron HCl (Zofran) 4 mg Q4HP PRN IV NAUSEA OR VOMITING 12/11/16 09:00 12/11/16 10:00 DC Trazodone HCl (Desyrel) 50 mg QHSP PRN PO INSOMNIA 12/10/16 01:00 12/10/16 11:19 DC 12/10/16 01:08 Trazodone HCl (Desyrel) 100 mg QHS PO 12/10/16 21:00 01/09/17 20:59 12/11/16 22:53 Trimethoprim/ Sulfamethoxazole (Bactrim Ds, Septra Ds 160mg/ 800mg) 1 tab Q12H PO 12/10/16 00:00 12/18/16 13:00 12/12/16 12:02 Venlafaxine HCl (Effexor Xr) 75 mg DAILY PO 12/11/16 09:00 01/10/17 08:59 12/12/16 08:18 Allergies Coded Allergies: Cephalexin (Unverified Allergy, Unknown, HIVES, 12/09/16) Sarah Villagomez Dec 12, 2016 12:58 Sarah Villagomez Dec 12, 2016 12:58
[2016-12-12] MEDS: hydrOXYzine 50 MG TAB PO PRN (14:05)
[2016-12-12 18:18] VITALS: BP 103/60
[2016-12-12] MEDS: traZODone 100 MG TAB PO SCH (20:17)
[2016-12-13] MEDS: BACTRIM 160MG/800MG DS TAB PO SCH ×2 (01:05→11:49)
[2016-12-13 06:25] VITALS: BP 100/59
[2016-12-13] MEDS: NICOTINE 21MG/24HR 1 EA TRANSDERMAL TD SCH (08:20)
[2016-12-13] MEDS: VENLAFAXINE **XR** 75MG CAPSULE PO SCH (08:22)
[2016-12-13] MEDS: NORCO, ANEXSIA 5/325MG TABLET (HYDROcodone/ACETAMINOPHEN) PO PRN ×3 (08:22→21:28)
[2016-12-13] MEDS: hydrOXYzine 50 MG TAB PO PRN (14:56)
--- NOTE | 2016-12-13 18:45 | IPNPDOC ---
[facility] Progress Note Progress Note DATE OF SERVICE: 12/13/16 HISTORY: Food And Beverage Manager met with patient today to assess treatment progress on inpatient unit. Patient indicates she continues to adjust to unit, has been attending groups, has been visible on unit, and is interacting appropriately with select peers. Patient recently underwent treatment to abscess to buttock which she indicates area remains sensitive, rates pain level 6/10, is being monitored by nursing for irritation/infection. Patient was somewhat more engageable today, and form consumer loan underwriter she feels Effexor XR 75 mg is helping to improve mood and reduce symptoms of anxiety and depression, continues to use PRN hydroxyzine proximally 1 time per day to reduce symptoms of anxiety with good effect reported, indicates she is sleeping "better," and notes trazodone remains effective. Patient denies medication side effects. Patient rates current anxiety level 5/10, depression 5/10, denies suicidal and homicidal ideation, denies audiovisual hallucinations, denies urge to engage in self- injurious behavior. Patient reiterates today she believes her symptoms are related to discontinuing her medication regimen 4 years ago and due to recent termination of an 8 year romantic relationship. Patient denies nightmares, indicates appetite is stable, reports some improvement to energy level, and endorses ongoing intermittent challenges with concentration. VITAL SIGNS: See below. NEW TEST RESULTS: 12/12/16 lab results low RBCs, Hgb, total bilirubin, AST, AGR AND elevated Travis %. MRSA, being monitored by PA. Endorses history of migraine, denies history of head injury or seizure. HCG negative on admission. UDS positive on admission for opiates and amphetamine. EKG results not found, we'll pursue with PA CURRENT MEDICATIONS: See below. MENTAL STATUS EXAMINATION: Patient is a 36-year-old female who is wasn't and cooperative, mildly disheveled , dressed in hospital clothing, thin, walks with steady gait, appears stated age , makes fair eye contact Speech: Is normal rate, rhythm, volume. Language skills are intact. Thought processes including: Clear, goal-directed. Thought content: Rational, logical, no paranoia Abstract reasoning: Appears intact Description of associations: Appears intact Description of abnormal or psychotic thoughts: denies hallucinations, delusions , preoccupation with violence, homicidal or suicidal ideation, and obsessions. Judgment: Poor Insight: Poor Orientation to time, place and person Recent and remote memory: Appears intact Attention span and concentration: Fair Language: Normal Fund of knowledge: Appears adequate Mood: "I'm ok, the medication is helping." Appears depressed, no lability noted. Affect: Blunted, appears anxious and depressed DIAGNOSES: Major depressive disorder, recurrent, moderate, alcohol use disorder in remission ASSESSMENT: Patient has been visible on unit, attending groups, engaging with select peers, has been cooperative with staff. Patient indicates her current medication regimen of Effexor, trazodone and PRN hydroxyzine remain effective and denies medication side effects. Per EMR, patient's sleep is improving, will monitor need for trazodone dosing adjustment. Patient denies current suicidal and homicidal thinking and is able to effectively engage in the safety planning process, verbalizes awareness of how to access supportive services on the unit if needed. Patient indicates her discharge plan when ready is to stay with a friend with whom she has been staying since the breakup between herself and her boyfriend. Will monitor patient's response to medications and titrate as tolerated by patient. Will also continue to monitor for resolution of suicidal thinking, patient's safety, and discharge readiness. MANAGEMENT PLAN: Continue Effexor XR 75 mg po q am, continue trazodone 100 mg po hs, and continue hydroxyzine 50 mg po PRN for anxiety Maintain safety precautions Patient to attend groups and participate in unit programming to develop coping strategies Engage patient in discharge planning process and arrange meeting with support system to ensure discharge planning when appropriate Patient to follow up with PCM upon discharge TIME SPENT: 35 minutes Vital Signs Vital Signs Date Time Temp Pulse Resp B/P Pulse Ox O2 Delivery O2 Flow Rate FiO2 12/13/16 15:50 16 12/13/16 06:25 96.8 91 100/59 12/11/16 09:27 96 Room Air 12/11/16 08:40 2 Current Medications Current Medications Medications (Trade) Dose Ordered Sig/Erwin Route PRN Reason Start Time Stop Time Status Last Admin Dose Admin Acetaminophen (Tylenol Tab) 650 mg Q6HP PRN PO HEADACHE or DISCOMFORT 12/10/16 01:00 01/09/17 00:59 Acetaminophen/ Hydrocodone Bitart ([place], Anexsia 5/325) 1 tab ASDIRECTED PRN PO PAIN 12/11/16 09:00 12/11/16 10:00 DC 12/11/16 09:04 Acetaminophen/ Hydrocodone Bitart ([place], Anexsia 5/325) 1 tab Q6HP PRN PO MILD/MODERATE PAIN (PS 1-7) 12/10/16 01:00 12/17/16 00:59 12/13/16 14:57 Al Hydrox/Mg Hydrox/Simethicone (Mylanta) 30 ml Q4HP PRN PO HEARTBURN/INDIGESTION 12/10/16 01:00 01/09/17 00:59 Fentanyl Citrate (Sublimaze) 25 mcg Q5MP PRN IV PAIN 12/11/16 09:00 12/11/16 10:00 DC 12/11/16 09:09 Home Med (Med Rec Complete!) ASDIRECTED XX 12/09/16 20:45 12/09/16 20:45 DC Hydroxyzine HCl 50 mg 50 mg Q6HP PRN PO ANXIETY 12/10/16 11:30 01/09/17 11:29 12/13/16 14:56 Ketorolac Tromethamine (ToRADol) 30 mg ONCE PRN IV PAIN 12/11/16 09:00 12/11/16 10:00 DC 12/11/16 09:04 Lactated Ringer's (Lactated Ringer'S) 1,000 ml @ 100 mls/hr Q10H IV 12/11/16 09:00 12/11/16 10:00 DC Magnesium Hydroxide (Milk Of Magnesia) 30 ml DAILYPRN PRN PO CONSTIPATION 12/10/16 01:00 01/09/17 00:59 Nicotine (Nicoderm Cq 21mg) 1 patch DAILY TD 12/10/16 09:00 01/09/17 08:59 Ondansetron HCl (Zofran) 4 mg Q4HP PRN IV NAUSEA OR VOMITING 12/11/16 09:00 12/11/16 10:00 DC Trazodone HCl (Desyrel) 50 mg QHSP PRN PO INSOMNIA 12/10/16 01:00 12/10/16 11:19 DC 12/10/16 01:08 Trazodone HCl (Desyrel) 100 mg QHS PO 12/10/16 21:00 01/09/17 20:59 12/12/16 20:17 Trimethoprim/ Sulfamethoxazole (Bactrim Ds, Septra Ds 160mg/ 800mg) 1 tab Q12H PO 12/10/16 00:00 12/18/16 13:00 12/13/16 11:49 Venlafaxine HCl (Effexor Xr) 75 mg DAILY PO 12/11/16 09:00 01/10/17 08:59 12/13/16 08:22 Allergies Coded Allergies: Cephalexin (Unverified Allergy, Unknown, HIVES, 12/09/16) Sarah Villagomez Dec 13, 2016 18:45
[2016-12-13] MEDS: traZODone 100 MG TAB PO SCH (21:27)
[2016-12-13 22:02] VITALS: BP 110/69
[2016-12-14] MEDS: BACTRIM 160MG/800MG DS TAB PO SCH ×3 (00:32→23:51)
[2016-12-14 06:49] VITALS: BP 95/51
[2016-12-14] MEDS: NICOTINE 21MG/24HR 1 EA TRANSDERMAL TD SCH (08:08)
[2016-12-14] MEDS: VENLAFAXINE **XR** 75MG CAPSULE PO SCH (08:09)
[2016-12-14] MEDS: NORCO, ANEXSIA 5/325MG TABLET (HYDROcodone/ACETAMINOPHEN) PO PRN ×3 (08:10→20:40)
--- NOTE | 2016-12-14 12:31 | IPNPDOC ---
[facility] Progress Note Progress Note DATE OF SERVICE: 12/14/16 HISTORY: Store Team Member met with patient today to assess treatment progress on inpatient unit. Patient is observed to be resting in bed between groups, indicates she continues to adjust to unit, has been attending groups, has been visible on unit, and is interacting appropriately with select peers. Patient reports 6/10 pain to buttock post abscess treatment, continues to be monitored by nursing for irritation and infection. Patient states today she feels Effexor XR 75 mg remains helpful in improving mood and reducing anxiety, continues to use PRN hydroxyzine approximately 1 time per day to reduce symptoms of anxiety with good effect reported. Patient today reports reduced sleep which she attributes to anxiety and pain, notes trazodone is partially effective, denies nightmares and denies symptoms of nighttime anxiety/ruminative thinking. Patient denies medication side effects. Patient rates current anxiety level 6/10 , depression 6/10, denies suicidal and homicidal ideation, denies audiovisual hallucinations, denies urge to engage in self-injurious behavior. Patient reiterates today she believes her symptoms are related to discontinuing her medication regimen 4 years ago and due to recent termination of an 8 year romantic relationship. Patient denies nightmares, indicates appetite is stable, reports some improvement to energy level, and endorses ongoing intermittent challenges with concentration. VITAL SIGNS: See below. NEW TEST RESULTS: 12/12/16 lab results low RBCs, Hgb, total bilirubin, AST, AGR AND elevated [place] %. MRSA, being monitored by PA. Endorses history of migraine, denies history of head injury or seizure. HCG negative on admission. UDS positive on admission for opiates and amphetamine. EKG results not found, we'll pursue with PA CURRENT MEDICATIONS: See below. MENTAL STATUS EXAMINATION: Patient is a 36-year-old female who is calm and cooperative, mildly disheveled, dressed in hospital clothing, thin, walks with steady gait, appears stated age, makes fair eye contact Speech: Is normal rate, rhythm, volume. Language skills are intact. Thought processes including: Clear, goal-directed. Thought content: Rational, logical, no paranoia Abstract reasoning: Appears intact Description of associations: Appears intact Description of abnormal or psychotic thoughts: denies hallucinations, delusions , preoccupation with violence, homicidal or suicidal ideation, and obsessions. Judgment: Poor Insight: Poor Orientation to time, place and person Recent and remote memory: Appears intact Attention span and concentration: Fair Language: Normal Fund of knowledge: Appears adequate Mood: "I'm ok, I just have some pain." Appears depressed, no lability noted. Affect: Blunted, appears anxious and depressed DIAGNOSES: Major depressive disorder, recurrent, moderate, alcohol use disorder in remission ASSESSMENT: Patient has been visible on unit, attending groups, engaging with select peers, has been cooperative with staff. Patient indicates Effexor remains effective in reducing symptoms of depression and PRN hydroxyzine remains effective for reducing symptoms of anxiety. Patient reports challenges with sleep maintenance last night, makes request for trazodone dose increase. Patient denies medication side effects. Patient denies current suicidal and homicidal thinking and is able to effectively engage in the safety planning process, verbalizes awareness of how to access supportive services on the unit if needed. Patient reiterates her discharge plan when ready is to stay with a friend with whom she has been staying since the breakup between herself and her boyfriend. Will monitor patient's response to medications and titrate as tolerated by patient. Will also continue to monitor for resolution of suicidal thinking, patient's safety, and discharge readiness. MANAGEMENT PLAN: Increase Trazodone to 150 mg po hs and change to PRN for insomnia. Continue Effexor XR 75 mg po q am and hydroxyzine 50 mg po PRN for anxiety Maintain safety precautions Patient to attend groups and participate in unit programming to develop coping strategies Engage patient in discharge planning process and arrange meeting with support system to ensure discharge planning when appropriate Patient to follow up with PCM upon discharge TIME SPENT: 35 minutes Vital Signs Vital Signs Date Time Temp Pulse Resp B/P Pulse Ox O2 Delivery O2 Flow Rate FiO2 12/14/16 09:00 16 12/14/16 06:49 97.0 69 95/51 12/11/16 09:27 96 Room Air 12/11/16 08:40 2 Current Medications Current Medications Acetaminophen (Tylenol Tab) 650 mg Q6HP PRN PO HEADACHE or DISCOMFORT; Start at 01:00; Stop 01/09/17 at 00:59 Acetaminophen/ Hydrocodone Bitart ([place], Anexsia 5/325) 1 tab ASDIRECTED PRN PO PAIN Last administered on 12/11/16t 09:04; Start 12/11/16 at 09:00; Stop at 10:00; Status DC Acetaminophen/ Hydrocodone Bitart ([place], Anexsia 5/325) 1 tab Q6HP PRN PO MILD /MODERATE PAIN (PS 1-7) Last administered on 12/14/16 08:10; Start 12/10/16 at 01 :00; Stop 12/17/16 at 00:59 Al Hydrox/Mg Hydrox/Simethicone (Mylanta) 30 ml Q4HP PRN PO HEARTBURN/ INDIGESTION; Start 12/10/16 at 01:00; Stop 01/09/17 at 00:59 Fentanyl Citrate (Sublimaze) 25 mcg Q5MP PRN IV PAIN Last administered on 09:09; Start 12/11/16 at 09:00; Stop 12/11/16 at 10:00; Status DC Home Med (Med Rec Complete!) ASDIRECTED XX ; Start 12/09/16 at 20:45; Stop at 20:45; Status DC Hydroxyzine HCl 50 mg 50 mg Q6HP PRN PO ANXIETY Last administered on 12/13/16 14:56; Start 12/10/16 at 11:30; Stop 01/09/17 at 11:29 Ketorolac Tromethamine (ToRADol) 30 mg ONCE PRN IV PAIN Last administered on 09:04; Start 12/11/16 at 09:00; Stop 12/11/16 at 10:00; Status DC Lactated Ringer's (Lactated Ringer'S) 1,000 ml @ 100 mls/hr Q10H IV ; Start 12/11/16 at 09:00; Stop 12/11/16 at 10:00; Status DC Magnesium Hydroxide (Milk Of Magnesia) 30 ml DAILYPRN PRN PO CONSTIPATION; Start 12/10/16 at 01:00; Stop 01/09/17 at 00:59 Nicotine (Nicoderm Cq 21mg) 1 patch DAILY TD ; Start 12/10/16 at 09:00; Stop 01/09 at 08:59 Ondansetron HCl (Zofran) 4 mg Q4HP PRN IV NAUSEA OR VOMITING; Start 12/11/16 at 09:00; Stop 12/11/16 at 10:00; Status DC Trazodone HCl (Desyrel) 50 mg QHSP PRN PO INSOMNIA Last administered on 01:08; Start 12/10/16 at 01:00; Stop 12/10/16 at 11:19; Status DC Trazodone HCl (Desyrel) 100 mg QHS PO Last administered on 12/13/16 21:27; Start 12/10/16 at 21:00; Stop 01/09/17 at 20:59 Trimethoprim/ Sulfamethoxazole (Bactrim Ds, Septra Ds 160mg/ 800mg) 1 tab Q12H PO Last administered on 12/14/16 11:45; Start 12/10/16 at 00:00; Stop 12/18/16 at 13:00 Venlafaxine HCl (Effexor Xr) 75 mg DAILY PO Last administered on 12/14/16 08:09; Start 12/11/16 at 09:00; Stop 01/10/17 at 08:59 Allergies Coded Allergies: Cephalexin (Unverified Allergy, Unknown, HIVES, 12/09/16) Sarah Villagomez Dec 14, 2016 12:31 Sarah Villagomez Dec 14, 2016 12:31
[2016-12-14] MEDS: hydrOXYzine 50 MG TAB PO PRN (14:31)
--- NOTE | 2016-12-14 16:46 | ECGEPIP ---
Stationary ECG Study [facility] Test Date: 2016-12-14 Pat Name: ECHO ALANIZ Department: Room: [place] [address] Gender: F V Belt Curer: SANDY : 1980 Requested By: Kaykay Echeverria Order Number: [id number] Reading MD: Sonia Kwong Measurements Intervals [place] Rate: 78 P: 55 VA: 143 QRS: 61 QRSD: 90 T: 47 QT: 364 QTc: 415 Interpretive Statements SINUS RHYTHM POSSIBLE LEFT ATRIAL ENLARGEMENT POSSIBLE LEFT VENTRICULAR HYPERTROPHY EARLY REPOLAR NO PRIOR Electronically Signed On 12-14-2016 16:46:18 EST by Sonia Kwong
[2016-12-14 18:25] VITALS: BP 113/74
[2016-12-14] MEDS: traZODone 50 MG TAB PO PRN (21:59)
[2016-12-15 07:14] VITALS: BP 92/51
[2016-12-15] MEDS: NICOTINE 21MG/24HR 1 EA TRANSDERMAL TD SCH (08:06)
[2016-12-15] MEDS: VENLAFAXINE **XR** 75MG CAPSULE PO SCH (08:07)
[2016-12-15] MEDS: NORCO, ANEXSIA 5/325MG TABLET (HYDROcodone/ACETAMINOPHEN) PO PRN ×3 (08:07→21:10)
--- NOTE | 2016-12-15 11:47 | IPNPDOC ---
Subjective General Date Seen The patient was seen on 12/15/16. Subjective Chief Complaint/HPI The patient is a 36-year-old female admitted with a reason for visit of Unspecified Depressive Disorder. Events since last encounter Following patient for left buttock wound Pulmonary: Denies: Cough, Dyspnea Cardiovascular: Denies: Chest Pain, Lt Headedness, Orthopnea, Palpitations, Paroxysmal Noc. Dyspnea Gastrointestinal: Denies: Abdominal Pain, Constipation, Diarrhea, Nausea, Vomiting Genitourinary: Denies: Dysuria, Frequency, Incontinence, Retention Objective Physical Examination General Exam: Positive: Alert Eye Exam: Positive: PERRLA Chest Exam: Positive: Clear to auscultation, Normal air movement Heart Exam: Positive: Normal S1, Normal S2, Rate Normal, Regular Rhythm, Negative: Murmurs, Rubs Skin Exam: Positive: Nl turgor and temperature, Other skin issue (dressing is removed from the left buttock I&D. There is no drainage noted. Packing has been removed. Packing is replaced, clean dressing is applied. Mild erythema surrounds the area.) Assessment /Plan Problems Problems: (1) Left buttock abscess Status: Acute Problem Text: * Afebrile. WBC WNL 12/12/16. * Status post I&D as per Dr. Espinoza * Continue wound care as per surgical recommendations. * [place] one tablet every 6 hours as needed for pain. * Continue Bactrim DS 1 tablet by mouth twice a day. * Continue to monitor. * Anticipate discharge as her attending next week, discuss with planner chief regarding wound care as outpatient. (2) Tobacco use Status: Chronic Problem Text: * NicoDerm Plan/VTE VTE Prophylaxis Ordered?: No (ambulatory) VS, I&O, 24H, Fishbone Vital Signs/I&O Vital Signs Date Time Temp Pulse Resp B/P Pulse Ox O2 Delivery O2 Flow Rate FiO2 12/15/16 09:00 16 12/15/16 07:14 98.7 69 92/51 12/11/16 09:27 96 Room Air 12/11/16 08:40 2 Laboratory Data Microbiology Microbiology 12/10/16 Gram Stain - Final, Complete 12/10/16 Abscess Culture - Final, Complete Staph.aureus Methicillin Resis Kaykay Echeverria Dec 15, 2016 11:47
[2016-12-15] MEDS: hydrOXYzine 50 MG TAB PO PRN (11:57)
[2016-12-15] MEDS: BACTRIM 160MG/800MG DS TAB PO SCH (11:57)
--- NOTE | 2016-12-15 16:34 | IPNPDOC ---
[facility] Progress Note Progress Note DATE OF SERVICE: 12/15/16 HISTORY: Changeover Operator met with patient today to assess treatment progress on inpatient unit. Patient is observed to be resting in bed between groups, indicates she continues to adjust to unit, has been attending groups, has been visible on unit, and is interacting appropriately with select peers. Patient reports 7/10 pain to buttock post abscess treatment, continues to be monitored by nursing for pain and infection. Patient continues to feel Effexor XR 75 mg is effective in reducing times of anxiety and depression, continues to use PRN hydroxyzine approximately 1 time per day to reduce symptoms of anxiety with good effect reported. Patient today reports improved sleep related to recent trazodone dose increase, denies medication side effects and denies nightmares. Patient informs journalists and other writers she feels less depressed than yesterday, reports reduced ruminative thinking, adds she is spending less time blaming herself for 2 failed marriages and recent failed 8 year relationship. Patient rates current anxiety level as 6/10, depression 4/10, denies suicidal and homicidal ideation, denies audiovisual hallucinations, denies urge to engage in self-injurious behavior. No responding to internal stimulation noted at time of assessment, will continue to monitor. Patient reiterates today she believes her symptoms are related to discontinuing her medication regimen 4 years ago and due to recent termination of an 8 year romantic relationship. Patient indicates appetite is stable, reports some improvement to energy level and concentration. Addendum: Patient speaks openly today regarding substance abuse, notes she has used heroin in the past, reports IV drug use within the past month, notes she used amphetamines just prior to admission, indicates UDS was positive for opiates due to pain medication she was taking to address abscess. Patient describes friend with whom she plans to live as "stable, he's been in recovery for 8 years," adds friend does not approve of her substance use. VITAL SIGNS: See below. NEW TEST RESULTS: 12/12/16 lab results low RBCs, Hgb, total bilirubin, AST, AGR AND elevated [place] %. MRSA, being monitored by PA. Endorses history of migraine, denies history of head injury or seizure. HCG negative on admission. UDS positive on admission for opiates and amphetamine. EKG results not found, we'll pursue with PA CURRENT MEDICATIONS: See below. MENTAL STATUS EXAMINATION: Patient is a 36-year-old female who is calm and cooperative, mildly disheveled, dressed in hospital clothing, thin, walks with steady gait, appears stated age, makes fair eye contact Speech: Is normal rate, rhythm, low volume. Language skills are intact. Thought processes including: Clear, goal-directed. Thought content: Rational, logical, no paranoia, no internal preoccupation noted , will monitor Abstract reasoning: Appears intact Description of associations: Appears intact Description of abnormal or psychotic thoughts: denies hallucinations, delusions , preoccupation with violence, homicidal or suicidal ideation, and obsessions. Judgment: Poor Insight: Poor Orientation to time, place and person Recent and remote memory: Appears intact Attention span and concentration: Fair Language: Normal Fund of knowledge: Appears adequate Mood: "I'm a little better today I think." Continues to appear depressed, no lability noted. Affect: Blunted, brightens X 1, appears anxious and depressed DIAGNOSES: Major depressive disorder, recurrent, moderate, alcohol use disorder in remission ASSESSMENT: Patient has been visible on unit, attending groups, engaging with select peers, has been cooperative with staff. Patient indicates Effexor is beginning to be effective in reducing symptoms of depression and PRN hydroxyzine remains effective for reducing symptoms of anxiety. Patient reports improved sleep with trazodone dose increase. Patient denies medication side effects. Patient denies current suicidal and homicidal thinking and is able to effectively engage in the safety planning process, verbalizes awareness of how to access supportive services on the unit if needed. Patient reiterates her discharge plan when ready is to stay with a friend with whom she has been staying since the breakup between herself and her boyfriend. Will monitor patient's response to medications and titrate as tolerated by patient. Will also continue to monitor for resolution of suicidal thinking, patient's safety, and discharge readiness. MANAGEMENT PLAN: Continue Trazodone 150 mg po hs PRN for insomnia. Continue Effexor XR 75 mg po q am and hydroxyzine 50 mg po PRN for anxiety Maintain safety precautions Patient to attend groups and participate in unit programming to develop coping strategies Engage patient in discharge planning process and arrange meeting with support system to ensure discharge planning when appropriate Patient to follow up with PCM upon discharge TIME SPENT: 35 minutes Vital Signs Vital Signs Date Time Temp Pulse Resp B/P Pulse Ox O2 Delivery O2 Flow Rate FiO2 2/9/17 15:36 16 12/15/16 07:14 98.7 69 92/51 12/11/16 09:27 96 Room Air 12/11/16 08:40 2 Current Medications Current Medications Acetaminophen (Tylenol Tab) 650 mg Q6HP PRN PO HEADACHE or DISCOMFORT; Start at 01:00; Stop 01/09/17 at 00:59 Acetaminophen/ Hydrocodone Bitart ([place], Anexsia 5/325) 1 tab ASDIRECTED PRN PO PAIN Last administered on 12/11/16 09:04; Start 12/11/16 at 09:00; Stop at 10:00; Status DC Acetaminophen/ Hydrocodone Bitart ([place], [place]nexs[place] 5/325) 1 tab Q6HP PRN PO MILD /MODERATE PAIN (PS 1-7) Last administered on 12/15/16 14:36; Start 12/10/16 at 01 :00; Stop 12/17/16 at 00:59 Al Hydrox/Mg Hydrox/Simethicone (Mylanta) 30 ml Q4HP PRN PO HEARTBURN/ INDIGESTION; Start 12/10/16 at 01:00; Stop 01/09/17 at 00:59 Fentanyl Citrate (Sublimaze) 25 mcg Q5MP PRN IV PAIN Last administered on 09:09; Start 12/11/16 at 09:00; Stop 12/11/16 at 10:00; Status DC Home Med (Med Rec Complete!) ASDIRECTED XX ; Start 12/09/16 at 20:45; Stop at 20:45; Status DC Hydroxyzine HCl 50 mg 50 mg Q6HP PRN PO ANXIETY Last administered on 12/15/16 11:57; Start 12/10/16 at 11:30; Stop 01/09/17 at 11:29 Ketorolac Tromethamine (ToRADol) 30 mg ONCE PRN IV PAIN Last administered on 09:04; Start 12/11/16 at 09:00; Stop 12/11/16 at 10:00; Status DC Lactated Ringer's (Lactated Ringer'S) 1,000 ml @ 100 mls/hr Q10H IV ; Start 12/11/16 at 09:00; Stop 12/11/16 at 10:00; Status DC Magnesium Hydroxide (Milk Of Magnesia) 30 ml DAILYPRN PRN PO CONSTIPATION; Start 12/10/16 at 01:00; Stop 01/09/17 at 00:59 Nicotine (Nicoderm Cq 21mg) 1 patch DAILY TD ; Start 12/10/16 at 09:00; Stop 01/09 at 08:59 Ondansetron HCl (Zofran) 4 mg Q4HP PRN IV NAUSEA OR VOMITING; Start 12/11/16 at 09:00; Stop 12/11/16 at 10:00; Status DC Trazodone HCl (Desyrel) 50 mg QHSP PRN PO INSOMNIA Last administered on 01:08; Start 12/10/16 at 01:00; Stop 12/10/16 at 11:19; Status DC Trazodone HCl (Desyrel) 100 mg QHS PO Last administered on 12/13/16 21:27; Start 12/10/16 at 21:00; Stop 12/14/16 at 16:24; Status DC Trazodone HCl (Desyrel) 150 mg QHSP PRN PO insomnia Last administered on 21:59; Start 12/14/16 at 16:30; Stop 01/13/17 at 16:29 Trimethoprim/ Sulfamethoxazole (Bactrim Ds, Septra Ds 160mg/ 800mg) 1 tab Q12H PO Last administered on 12/15/16 11:57; Start 12/10/16 at 00:00; Stop 12/18/16 at 13:00 Venlafaxine HCl (Effexor Xr) 75 mg DAILY PO Last administered on 12/15/16 08:07; Start 12/11/16 at 09:00; Stop 01/10/17 at 08:59 Allergies Coded Allergies: Cephalexin (Unverified Allergy, Unknown, HIVES, 12/09/16) Sarah Villagomez Dec 15, 2016 16:34
[2016-12-15 18:00] VITALS: BP 90/48
[2016-12-15] MEDS: traZODone 50 MG TAB PO PRN (21:08)
[2016-12-16] MEDS: BACTRIM 160MG/800MG DS TAB PO SCH ×3 (00:22→22:11)
[2016-12-16 06:40] VITALS: BP 95/53
[2016-12-16] MEDS: NICOTINE 21MG/24HR 1 EA TRANSDERMAL TD SCH (08:06)
[2016-12-16] MEDS: VENLAFAXINE **XR** 75MG CAPSULE PO SCH (08:07)
[2016-12-16] MEDS: NORCO, ANEXSIA 5/325MG TABLET (HYDROcodone/ACETAMINOPHEN) PO PRN ×3 (08:08→20:28)
[2016-12-16] MEDS: OSELTAMIVIR PHOSPHATE 75 MG CAP (TAMIFLU) PO SCH (12:34)
--- NOTE | 2016-12-16 12:58 | IPNPDOC ---
[facility] Progress Note Progress Note DATE OF SERVICE: 12/16/16 HISTORY: Strap Buckler Machine met with patient today to assess treatment progress on inpatient unit. Patient is observed to be up out of bed today, states to database report writer when asked if she can meet, "I guess so but I'm sick of people asking me questions and telling me how I feel when I know how I really feel." When asked to explain response patient stated, "Well, the medication is helping and I don' t feel anxious or depressed anymore but the medication you give me for anxiety doesn't work all the time." Patient indicates she has been taking hydroxyzine 50 mg approximately twice a day with partial effect, this is contrary to EMR indicates patient has been taking PRN anxiolytic approximately one time per day and has been reporting medication effectiveness. Patient informs database report writer she is in physical pain related to recent abscess procedure, indicates irritability and anxiety is related to pain level 8/10. Patient has been visible on unit, attending groups, continues to adjust to unit and interacts with select peers and staff. Patient continues to feel Effexor XR 75 mg is effective in reducing symptoms of anxiety and depression and Trazodone for sleep with good effect reported, denies medication side effects, reports history of nightmares approximately one time per month. Patient today reports reduced ruminative thinking and reduce self blame, denies symptoms of anxiety and depression, though appears depressed, anxious, and irritable. Patient denies suicidal and homicidal ideation, denies audiovisual hallucinations, and denies urge to engage in self-injurious behavior. No responding to internal stimulation noted at time of assessment, will continue to monitor. Addendum: Patient yesterday spoke openly today regarding substance abuse, notes she has used heroin in the past, reports IV drug use within the past month, notes she used amphetamines just prior to admission, indicates UDS was positive for opiates due to pain medication she was taking to address abscess. Patient describes friend with whom she plans to live as "stable, he's been in recovery for 8 years," adds friend does not approve of her substance use. VITAL SIGNS: See below. NEW TEST RESULTS: 12/12/16 lab results low RBCs, Hgb, total bilirubin, AST, AGR AND elevated [place] %. MRSA, being monitored by PA. Endorses history of migraine, denies history of head injury or seizure. HCG negative on admission. UDS positive on admission for opiates and amphetamine. EKG results not found, we'll pursue with PA CURRENT MEDICATIONS: See below. MENTAL STATUS EXAMINATION: Patient is a 36-year-old female who is irritable but generally cooperative, mildly disheveled, dressed in hospital clothing, thin, walks with steady gait, appears stated age, makes fair eye contact Speech: Is normal rate, rhythm, low volume. Language skills are intact. Thought processes including: Clear, goal-directed. Thought content: Generally rational, logical, no paranoia, no internal preoccupation noted, will monitor Abstract reasoning: Appears intact Description of associations: Appears intact Description of abnormal or psychotic thoughts: denies hallucinations, delusions , preoccupation with violence, homicidal or suicidal ideation, and obsessions. Judgment: Poor Insight: Poor Orientation to time, place and person Recent and remote memory: Appears intact Attention span and concentration: Fair Language: Normal Fund of knowledge: Appears adequate Mood: "I think I'm better." Continues to appear depressed and anxious, no lability noted. Affect: Blunted, no brightening today, appears anxious and depressed DIAGNOSES: Major depressive disorder, recurrent, moderate, alcohol use disorder in remission ASSESSMENT: Patient has been visible on unit, attending groups, engaging with select peers, has been cooperative with staff. Patient indicates Effexor is beginning to be effective in reducing symptoms of depression, denies need for dosing adjustment, and up until today has indicated PRN hydroxyzine is effective for reducing symptoms of anxiety. Patient then stated to database report writer that she believes her symptoms of irritability and anxiety are related to pain secondary to recent abscess procedure. Patient is aware she may take anxiolytic with increased frequency if needed, verbalizes awareness that need for anxiolytic is indicator of residual symptoms of anxiety/depression. Patient reports improved sleep with trazodone dose increase. Patient denies medication side effects. Patient denies current suicidal and homicidal thinking and is able to effectively engage in the safety planning process, verbalizes awareness of how to access supportive services on the unit if needed. Patient reiterates her discharge plan when ready is to stay with a friend with whom she has been living since the breakup between herself and her boyfriend. Will monitor patient 's response to medications and titrate as tolerated by patient. Will also continue to monitor for resolution of suicidal thinking, patient's safety, and discharge readiness. MANAGEMENT PLAN: Continue Trazodone 150 mg po hs PRN for insomnia, Effexor XR 75 mg po q am, and hydroxyzine 50 mg po q 6 hours PRN for anxiety Maintain safety precautions Patient to attend groups and participate in unit programming to develop coping strategies Engage patient in discharge planning process and arrange meeting with support system to ensure discharge planning when appropriate Patient to follow up with PCM upon discharge TIME SPENT: 35 minutes Vital Signs Vital Signs Date Time Temp Pulse Resp B/P Pulse Ox O2 Delivery O2 Flow Rate FiO2 12/16/16 09:00 16 12/16/16 06:40 97.4 84 95/53 12/11/16 09:27 96 Room Air 12/11/16 08:40 2 Current Medications Current Medications Acetaminophen (Tylenol Tab) 650 mg Q6HP PRN PO HEADACHE or DISCOMFORT; Start at 01:00; Stop 01/09/17 at 00:59 Acetaminophen/ Hydrocodone Bitart ([place], Anexsia 5/325) 1 tab ASDIRECTED PRN PO PAIN Last administered on 12/11/16 09:04; Start 12/11/16 at 09:00; Stop at 10:00; Status DC Acetaminophen/ Hydrocodone Bitart ([place], Anexsia 5/325) 1 tab Q6HP PRN PO MILD /MODERATE PAIN (PS 1-7) Last administered on 12/16/16 08:08; Start 12/10/16 at 01:00; Stop 12/17/16 at 00:59 Al Hydrox/Mg Hydrox/Simethicone (Mylanta) 30 ml Q4HP PRN PO HEARTBURN/ INDIGESTION; Start 12/10/16 at 01:00; Stop 01/09/17 at 00:59 Fentanyl Citrate (Sublimaze) 25 mcg Q5MP PRN IV PAIN Last administered on 09:09; Start 12/11/16 at 09:00; Stop 12/11/16 at 10:00; Status DC Home Med (Med Rec Complete!) ASDIRECTED XX ; Start 12/09/16 at 20:45; Stop at 20:45; Status DC Hydroxyzine HCl 50 mg 50 mg Q6HP PRN PO ANXIETY Last administered on 12/15/16 11:57; Start 12/10/16 at 11:30; Stop 01/09/17 at 11:29 Ketorolac Tromethamine (ToRADol) 30 mg ONCE PRN IV PAIN Last administered on 09:04; Start 12/11/16 at 09:00; Stop 12/11/16 at 10:00; Status DC Lactated Ringer's (Lactated Ringer'S) 1,000 ml @ 100 mls/hr Q10H IV ; Start 12/11/16 at 09:00; Stop 12/11/16 at 10:00; Status DC Magnesium Hydroxide (Milk Of Magnesia) 30 ml DAILYPRN PRN PO CONSTIPATION; Start 12/10/16 at 01:00; Stop 01/09/17 at 00:59 Nicotine (Nicoderm Cq 21mg) 1 patch DAILY TD ; Start 12/10/16 at 09:00; Stop 01/09 at 08:59 Ondansetron HCl (Zofran) 4 mg Q4HP PRN IV NAUSEA OR VOMITING; Start 12/11/16 at 09:00; Stop 12/11/16 at 10:00; Status DC Oseltamivir Phosphate (Tamiflu) 75 mg DAILY PO Last administered on 12/16/16 12:34; Start 12/16/16 at 09:00; Stop 12/25/16 at 12:00 Trazodone HCl (Desyrel) 50 mg QHSP PRN PO INSOMNIA Last administered on 01:08; Start 12/10/16 at 01:00; Stop 12/10/16 at 11:19; Status DC Trazodone HCl (Desyrel) 100 mg QHS PO Last administered on 12/13/16 21:27; Start 12/10/16 at 21:00; Stop 12/14/16 at 16:24; Status DC Trazodone HCl (Desyrel) 150 mg QHSP PRN PO insomnia Last administered on 21:08; Start 12/14/16 at 16:30; Stop 01/13/17 at 16:29 Trimethoprim/ Sulfamethoxazole (Bactrim Ds, Septra Ds 160mg/ 800mg) 1 tab Q12H PO Last administered on 12/16/16 11:58; Start 12/10/16 at 00:00; Stop 12/18/16 at 13:00 Venlafaxine HCl (Effexor Xr) 75 mg DAILY PO Last administered on 12/16/16t 08:07; Start 12/11/16 at 09:00; Stop 01/10/17 at 08:59 Allergies Coded Allergies: Cephalexin (Unverified Allergy, Unknown, HIVES, 12/09/16) Sarah Villagomez Dec 16, 2016 12:58
[2016-12-16] MEDS ORDERED: INFLUENZA QUADRIVALENT PF VACCINE 0.5ML SYRINGE/VIAL (90686) IM ONE (14:00)
[2016-12-16 18:00] VITALS: BP 112/67
[2016-12-16] MEDS: traZODone 50 MG TAB PO PRN (22:11)
[2016-12-17 06:16] VITALS: BP 98/50
[2016-12-17] MEDS: VENLAFAXINE **XR** 75MG CAPSULE PO SCH (08:03)
[2016-12-17] MEDS: OSELTAMIVIR PHOSPHATE 75 MG CAP (TAMIFLU) PO SCH (08:03)
[2016-12-17] MEDS: NORCO, ANEXSIA 5/325MG TABLET (HYDROcodone/ACETAMINOPHEN) PO PRN ×3 (08:04→20:02)
[2016-12-17] MEDS: NICOTINE 21MG/24HR 1 EA TRANSDERMAL TD SCH (08:05)
[2016-12-17] MEDS: BACTRIM 160MG/800MG DS TAB PO SCH ×2 (11:41→22:54)
[2016-12-17 18:38] VITALS: BP 100/62
[2016-12-17] MEDS: traZODone 50 MG TAB PO PRN (22:54)
[2016-12-18 06:34] VITALS: BP 123/67
[2016-12-18] MEDS: VENLAFAXINE **XR** 75MG CAPSULE PO SCH (08:03)
[2016-12-18] MEDS: OSELTAMIVIR PHOSPHATE 75 MG CAP (TAMIFLU) PO SCH (08:03)
[2016-12-18] MEDS: NORCO, ANEXSIA 5/325MG TABLET (HYDROcodone/ACETAMINOPHEN) PO PRN ×3 (08:04→20:34)
[2016-12-18] MEDS: NICOTINE 21MG/24HR 1 EA TRANSDERMAL TD SCH (09:00)
[2016-12-18] MEDS: BACTRIM 160MG/800MG DS TAB PO SCH (12:01)
[2016-12-18 18:00] VITALS: BP 122/72
[2016-12-18] MEDS: traZODone 50 MG TAB PO PRN (22:18)
[2016-12-19 06:24] VITALS: BP 93/54
[2016-12-19] MEDS: NORCO, ANEXSIA 5/325MG TABLET (HYDROcodone/ACETAMINOPHEN) PO PRN ×3 (08:08→20:43)
[2016-12-19] MEDS: VENLAFAXINE **XR** 75MG CAPSULE PO SCH (08:08)
[2016-12-19] MEDS: OSELTAMIVIR PHOSPHATE 75 MG CAP (TAMIFLU) PO SCH (08:08)
[2016-12-19] MEDS: NICOTINE 21MG/24HR 1 EA TRANSDERMAL TD SCH (09:00)
[2016-12-19] MEDS ORDERED: QUEtiapine FUMARATE 12.5 MG HALF-TAB PO PRN (14:30)
--- NOTE | 2016-12-19 14:54 | IPN ---
DATE: 12/19/2016 SUBJECTIVE: "I'm anxious all day." OBJECTIVE: The patient is improving slowly, is less depressed. No evidence of psychomotor retardation. The patient still has some restricted facial expression and monotone voice. Reports no side effects from the medication but requests the medication for anxiety to be changed since she feels anxious all day long. We discussed the treatment plan. MENTAL STATUS EXAMINATION: The patient is dressed in [facility]. She has fair eye contact. Speech is slow and monotone. Mood is depressed and anxious but improving. Affect is somewhat restricted but also improving. No delusions or hallucinations. Memory is fair. The patient is fully oriented. Associations are intact. Thinking is logical. Thought content is appropriate. The patient is able to contract for safety. Insight and judgment is fair. ASSESSMENT: 1. Major depressive disorder, recurrent. 2. Alcohol abuse. PLAN: 1. Start Seroquel 12.5 mg by mouth three times a day as needed for anxiety. 2. Continue with trazodone 150 mg by mouth at bedtime. 3. Effexor 75 mg by mouth daily. 4. Continue medication management, individual and group therapy.
[2016-12-19 18:00] VITALS: BP 101/61
[2016-12-19] MEDS: traZODone 50 MG TAB PO PRN (22:08)
[2016-12-20 07:16] VITALS: BP 92/55
[2016-12-20] MEDS: NICOTINE 21MG/24HR 1 EA TRANSDERMAL TD SCH (08:01)
[2016-12-20] MEDS: VENLAFAXINE **XR** 75MG CAPSULE PO SCH (08:01)
[2016-12-20] MEDS: OSELTAMIVIR PHOSPHATE 75 MG CAP (TAMIFLU) PO SCH (08:01)
[2016-12-20] MEDS: NORCO, ANEXSIA 5/325MG TABLET (HYDROcodone/ACETAMINOPHEN) PO PRN ×3 (08:05→20:29)
[2016-12-20 11:59] VITALS: BP 92/55
--- NOTE | 2016-12-20 16:24 | IPNPDOC ---
[facility] Progress Note Progress Note DATE OF SERVICE: 12/20/16 HISTORY: Office Runner met with patient today to assess treatment progress on inpatient unit. Patient is observed to be resting in bed between groups, indicates she is waiting for nursing to come in to do dressing change. Patient indicates Effexor remains effective in reducing symptoms of depression, today indicating she is experiencing no symptoms of depression or anxiety at time of interaction, notes she continues to feel intermittent symptoms of anxiety during the day. Patient informs physician underwriter she met with other provider over weekend and informed other provider that current PRN anxiolytic is ineffective. Patient asks about discharge, indicates today she feels ready to return home. Patient states she continues to experience physical pain 04/15, reiterates intermittent anxiety is related to physical pain. Patient states trazodone remains effective for sleep, denies nightmares symptoms, and denies medication side effects. Patient today again reports reduced ruminative thinking and reduce self blame, denies suicidal and homicidal ideation, denies audiovisual hallucinations, and denies urge to engage in self-injurious behavior. No responding to internal stimulation noted at time of assessment. Patient continues to desire discharge back to residence with friend whom patient describes as stable and notes friend has been in recovery for 8 years, patient has also indicated that friend does not approve of patient's substance use. Addendum: Office Runner followed up with patient date of entry to confirm that she she is aware weekend provider made new anxiolytic med available to her. Patient was observed to be in lounge, laughing and joking with peers, engaging appropriately with no signs of acute distress. Patient stated to physician underwriter, "I'm not taking Seroquel because it makes me tired, how about giving me Ativan? They' ve given it to me in the hospital before and it worked well." Office Runner explained that Ativan would not be appropriate to address symptoms of anxiety, explained to patient that Seroquel dosing is very low and not likely to cause sedation, and encourage patient to trial Seroquel to address symptoms of anxiety when needed. Patient became angry with physician underwriter and indicated to physician underwriter that she is not interested in medication dosing adjustments or trialing new medication due to "it'll mean that I have to stay here longer and I want to discharge." Patient denied interest in physician underwriter's treatment recommendations, stated she feels current medication regimen is effective, again denied symptoms of depression and anxiety, and indicated she feels prepared to be discharged to home with outpatient follow-up. VITAL SIGNS: See below. NEW TEST RESULTS: 12/12/16 lab results low RBCs, Hgb, total bilirubin, AST, AGR AND elevated [place] %. MRSA, being monitored by PA. Endorses history of migraine, denies history of head injury or seizure. HCG negative on admission. UDS positive on admission for opiates and amphetamine. EKG results not found, we'll pursue with PA CURRENT MEDICATIONS: See below. MENTAL STATUS EXAMINATION: Patient is a 36-year-old female who is less irritable today until told Ativan Rx would not be provided, remains otherwise cooperative, mildly disheveled, dressed in hospital clothing, thin, walks with steady gait, appears stated age, makes fair eye contact Speech: Is normal rate, rhythm, low volume. Language skills are intact. Thought processes including: Clear, goal-directed. Thought content: Generally rational, logical, no paranoia, no internal preoccupation noted, will monitor Abstract reasoning: Appears intact Description of associations: Appears intact Description of abnormal or psychotic thoughts: denies hallucinations, delusions , preoccupation with violence, homicidal or suicidal ideation, and obsessions. Judgment: Poor Insight: Poor Orientation to time, place and person Recent and remote memory: Appears intact Attention span and concentration: Fair Language: Normal Fund of knowledge: Appears adequate Mood: "I'm fine." When observed in milieu, no signs of depression or anxiety noted, irritability noted only when discussing Ativan and physical pain Affect: Constricted, brightens at times, is observed laughing and joking and lounge with peers DIAGNOSES: Major depressive disorder, recurrent, moderate, polysubstance use disorder, alcohol use disorder in remission ASSESSMENT: Patient has been visible on unit, attending groups, engaging with peers, and has been cooperative with staff. Patient indicates Effexor is effective in reducing symptoms of depression and anxiety, denies need for dosing adjustment. Patient is aware a new PRN medication has been made available to her to address symptoms of intermittent anxiety, is declining and is making request for Ativan, denies interest in other medication trial and is declining treatment recommendation being made by provider at this time. Patient reports improved sleep and denies all medication side effects. Patient denies suicidal and homicidal thinking and is able to effectively engage in the safety planning process, verbalizes awareness of how to access supportive services on the unit if needed. Patient reiterates her discharge plan is to return home with a friend, with whom she is apparently also romantically involved, and with whom she has been living since the breakup between herself and her boyfriend of 8 years. Will continue to monitor patient's response to medication and will begin to prepare patient for discharge later in week with billing coordinator is able to arrange family/support meeting. MANAGEMENT PLAN: Continue Trazodone 150 mg po hs PRN for insomnia, Effexor XR 75 mg po q am, and Seroquel 12.5 mg po PRN TID anxiety Maintain safety precautions Patient to attend groups and participate in unit programming to develop coping strategies Engage patient in discharge planning process and arrange meeting with support system to ensure discharge planning when appropriate Patient to follow up with PCM upon discharge TIME SPENT: 35 minutes Vital Signs Vital Signs Date Time Temp Pulse Resp B/P Pulse Ox O2 Delivery O2 Flow Rate FiO2 12/20/16 15:10 16 12/20/16 11:59 96.6 75 92/55 96 Room Air 2.0 Current Medications Current Medications Acetaminophen (Tylenol Tab) 650 mg Q6HP PRN PO HEADACHE or DISCOMFORT; Start at 01:00; Stop 01/09/17 at 00:59 Acetaminophen/ Hydrocodone Bitart ([place], Anexsia 5/325) 1 tab ASDIRECTED PRN PO PAIN Last administered on 12/11/16 09:04; Start 12/11/16 at 09:00; Stop at 10:00; Status DC Acetaminophen/ Hydrocodone Bitart ([place], Anexsia 5/325) 1 tab Q6HP PRN PO MILD /MODERATE PAIN (PS 1-7) Last administered on 12/20/16 14:20; Start 12/10/16 at 01:00; Stop 12/23/16 at 00:59 Al Hydrox/Mg Hydrox/Simethicone (Mylanta) 30 ml Q4HP PRN PO HEARTBURN/ INDIGESTION; Start 12/10/16 at 01:00; Stop 01/09/17 at 00:59 Fentanyl Citrate (Sublimaze) 25 mcg Q5MP PRN IV PAIN Last administered on 09:09; Start 12/11/16 at 09:00; Stop 12/11/16 at 10:00; Status DC Home Med (Med Rec Complete!) ASDIRECTED XX ; Start 12/09/16 at 20:45; Stop at 20:45; Status DC Hydroxyzine HCl 50 mg 50 mg Q6HP PRN PO ANXIETY Last administered on 12/15/16 11:57; Start 12/10/16 at 11:30; Stop 01/09/17 at 11:29 Ketorolac Tromethamine (ToRADol) 30 mg ONCE PRN IV PAIN Last administered on 09:04; Start 12/11/16 at 09:00; Stop 12/11/16 at 10:00; Status DC Lactated Ringer's (Lactated Ringer'S) 1,000 ml @ 100 mls/hr Q10H IV ; Start 12/11/16 at 09:00; Stop 12/11/16 at 10:00; Status DC Magnesium Hydroxide (Milk Of Magnesia) 30 ml DAILYPRN PRN PO CONSTIPATION; Start 12/10/16 at 01:00; Stop 01/09/17 at 00:59 Nicotine (Nicoderm Cq 21mg) 1 patch DAILY TD Last administered on 12/17/16 08: 05; Start 12/10/16 at 09:00; Stop 01/09/17 at 08:59 Ondansetron HCl (Zofran) 4 mg Q4HP PRN IV NAUSEA OR VOMITING; Start 12/11/16 at 09:00; Stop 12/11/16 at 10:00; Status DC Oseltamivir Phosphate (Tamiflu) 75 mg DAILY PO Last administered on 12/20/16 08:01; Start 12/16/16 at 09:00; Stop 12/25/16 at 12:00 Quetiapine Fumarate (SEROquel) 12.5 mg TIDP PRN PO ANXIETY; Start 12/19/16 at 14:30; Stop 01/18/17 at 14:29 Trazodone HCl (Desyrel) 50 mg QHSP PRN PO INSOMNIA Last administered on 01:08; Start 12/10/16 at 01:00; Stop 12/10/16 at 11:19; Status DC Trazodone HCl (Desyrel) 100 mg QHS PO Last administered on 12/13/16 21:27; Start 12/10/16 at 21:00; Stop 12/14/16 at 16:24; Status DC Trazodone HCl (Desyrel) 150 mg QHSP PRN PO insomnia Last administered on 22:08; Start 12/14/16 at 16:30; Stop 01/13/17 at 16:29 Trimethoprim/ Sulfamethoxazole (Bactrim Ds, Septra Ds 160mg/ 800mg) 1 tab Q12H PO Last administered on 12/18/16 12:01; Start 12/10/16 at 00:00; Stop 12/18/16 at 13:00; Status DC Venlafaxine HCl (Effexor Xr) 75 mg DAILY PO Last administered on 12/20/16 08:01; Start 12/11/16 at 09:00; Stop 01/10/17 at 08:59 Allergies Coded Allergies: Cephalexin (Unverified Allergy, Unknown, HIVES, 12/09/16) Sarah Villagomez Dec 20, 2016 16:24
[2016-12-20 18:00] VITALS: BP 99/55
[2016-12-20] MEDS: traZODone 50 MG TAB PO PRN (22:01)
[2016-12-21 06:47] VITALS: BP 101/57
[2016-12-21] MEDS: OSELTAMIVIR PHOSPHATE 75 MG CAP (TAMIFLU) PO SCH (08:00)
[2016-12-21] MEDS: NICOTINE 21MG/24HR 1 EA TRANSDERMAL TD SCH (08:01)
[2016-12-21] MEDS: NORCO, ANEXSIA 5/325MG TABLET (HYDROcodone/ACETAMINOPHEN) PO PRN ×3 (08:01→20:30)
[2016-12-21] MEDS: VENLAFAXINE **XR** 75MG CAPSULE PO SCH (08:01)
--- NOTE | 2016-12-21 16:07 | IPNPDOC ---
[facility] Progress Note Progress Note DATE OF SERVICE: 12/21/16 HISTORY: Aoc Director Intelligence Officer met with patient today to assess treatment progress on inpatient unit. Patient is observed to be up out of bed, visible on unit, has had dressing change completed, and reports improvement pain level today. Patient indicates Effexor remains effective in reducing symptoms of depression, states she is experiencing no symptoms of depression or anxiety at time of interaction, denies need for dosing adjustment to medications or need for PRN anxiolytic medication, denies symptoms of intermittent anxiety during the day. Patient remains aware that she has low dose Seroquel available to her provided by weekend provider to address intermittent symptoms of anxiety should they return. Patient states she feels prepared for discharge verbalizes awareness that she has a family meeting scheduled for 3:30 PM tomorrow afternoon with discharge likely to follow. Patient states trazodone remains effective for sleep , denies nightmares symptoms, and denies medication side effects. Patient today denies ruminative thinking and denies engaging in self blame, and indicates she feels she has learned coping mechanisms while receiving inpatient treatment. Patient denies suicidal and homicidal ideation, denies audiovisual hallucinations, and denies urge to engage in self-injurious behavior. Patient continues to desire discharge back to residence with friend whom patient describes as stable and notes friend has been in recovery for 8 years, patient has also indicated that friend does not approve of patient's substance use. As indicated in yesterday's note, patient became angry with data analyst report writer when told she would not be prescribed Ativan to address reported intermittent symptoms of anxiety, patient remains disinterested in data analyst report writer's recommendations or trialing medication to address intermittent symptoms of anxiety should they return. Furthermore, patient denies need for prescription for as needed anxiolytic at time of discharge, states she continues to feel prepared prepared for discharge to home with outpatient follow-up. VITAL SIGNS: See below. NEW TEST RESULTS: 12/12/16 lab results low RBCs, Hgb, total bilirubin, AST, AGR AND elevated Keith %. MRSA, being monitored by PA. Endorses history of migraine, denies history of head injury or seizure. HCG negative on admission. UDS positive on admission for opiates and amphetamine. EKG results not found, we'll pursue with PA CURRENT MEDICATIONS: See below. MENTAL STATUS EXAMINATION: Patient is a 36-year-old female who presents as calm and cooperative today, makes no further inquiry regarding Ativan, presents with somewhat improved personal hygiene, dressed in hospital clothing, walks with steady gait, appears stated age, makes improved eye contact Speech: Is normal rate, rhythm, low volume. Language skills are intact. Thought processes including: Clear, goal-directed. Thought content: Rational, logical, no paranoia, no internal preoccupation noted , will monitor Abstract reasoning: Appears intact Description of associations: Appears intact Description of abnormal or psychotic thoughts: denies hallucinations, delusions , preoccupation with violence, homicidal or suicidal ideation, and obsessions. Judgment: Fair Insight: Fair Orientation to time, place and person Recent and remote memory: Appears intact Attention span and concentration: Fair Language: Normal Fund of knowledge: Appears adequate Mood: "I'm fine, I feel good." No signs of depression or anxiety noted, no mood lability noted Affect: Constricted, brightens at times, is observed laughing and joking and lounge with peers DIAGNOSES: Major depressive disorder, recurrent, moderate, polysubstance use disorder, alcohol use disorder in remission ASSESSMENT: Patient has been visible on unit, attending groups, engaging with peers, and has been cooperative with staff. Patient indicates Effexor remains effective in reducing symptoms of depression and anxiety, denies need for dosing adjustment. Patient reports improved sleep and denies all medication side effects. Patient denies suicidal and homicidal thinking and is able to effectively engage in the safety planning process, verbalizes awareness of how to access supportive services on the unit if needed. Patient reiterates her discharge plan is to return home with a friend, with whom she is apparently also romantically involved, and with whom she has been living since the breakup between herself and her boyfriend of 8 years. Patient is aware family meeting is scheduled for tomorrow afternoon and discharge may follow meeting if patient remains stable and support system is comfortable with discharge plan. Will continue to monitor patient's response to medication and will prepare patient for discharge. Patient has declined inpatient substance abuse treatment but is agreeing to outpatient psychotherapy and medication management services. MANAGEMENT PLAN: Continue Trazodone 150 mg po hs PRN for insomnia, Effexor XR 75 mg po q am, and Seroquel 12.5 mg po PRN TID anxiety Maintain safety precautions Patient to attend groups and participate in unit programming to develop coping strategies Engage patient in discharge planning process and arrange meeting with support system to ensure discharge planning when appropriate Patient to follow up with PCM upon discharge TIME SPENT: 25 minutes Vital Signs Vital Signs Date Time Temp Pulse Resp B/P Pulse Ox O2 Delivery O2 Flow Rate FiO2 12/21/16 14:30 16 12/21/16 09:00 88 12/21/16 06:47 96.8 101/57 12/20/16 11:59 96 Room Air 2.0 Current Medications Current Medications Acetaminophen (Tylenol Tab) 650 mg Q6HP PRN PO HEADACHE or DISCOMFORT; Start at 01:00; Stop 01/09/17 at 00:59 Acetaminophen/ Hydrocodone Bitart (Thrall, Anexsia 5/325) 1 tab ASDIRECTED PRN PO PAIN Last administered on 12/11/16 09:04; Start 12/11/16 at 09:00; Stop at 10:00; Status DC Acetaminophen/ Hydrocodone Bitart (Thrall, Anexsia 5/325) 1 tab Q6HP PRN PO MILD /MODERATE PAIN (PS 1-7) Last administered on 12/21/16 14:30; Start 12/10/16 at 01:00; Stop 12/23/16 at 00:59 Al Hydrox/Mg Hydrox/Simethicone (Mylanta) 30 ml Q4HP PRN PO HEARTBURN/ INDIGESTION; Start 12/10/16 at 01:00; Stop 01/09/17 at 00:59 Fentanyl Citrate (Sublimaze) 25 mcg Q5MP PRN IV PAIN Last administered on 09:09; Start 12/11/16 at 09:00; Stop 12/11/16 at 10:00; Status DC Home Med (Med Rec Complete!) ASDIRECTED XX ; Start 12/09/16 at 20:45; Stop at 20:45; Status DC Hydroxyzine HCl 50 mg 50 mg Q6HP PRN PO ANXIETY Last administered on 12/15/16 11:57; Start 12/10/16 at 11:30; Stop 01/09/17 at 11:29 Ketorolac Tromethamine (ToRADol) 30 mg ONCE PRN IV PAIN Last administered on 09:04; Start 12/11/16 at 09:00; Stop 12/11/16 at 10:00; Status DC Lactated Ringer's (Lactated Ringer'S) 1,000 ml @ 100 mls/hr Q10H IV ; Start 12/11/16 at 09:00; Stop 12/11/16 at 10:00; Status DC Magnesium Hydroxide (Milk Of Magnesia) 30 ml DAILYPRN PRN PO CONSTIPATION; Start 12/10/16 at 01:00; Stop 01/09/17 at 00:59 Nicotine (Nicoderm Cq 21mg) 1 patch DAILY TD Last administered on 12/17/16 08: 05; Start 12/10/16 at 09:00; Stop 01/09/17 at 08:59 Ondansetron HCl (Zofran) 4 mg Q4HP PRN IV NAUSEA OR VOMITING; Start 12/11/16 at 09:00; Stop 12/11/16 at 10:00; Status DC Oseltamivir Phosphate (Tamiflu) 75 mg DAILY PO Last administered on 12/21/16 08:00; Start 12/16/16 at 09:00; Stop 12/25/16 at 12:00 Quetiapine Fumarate (SEROquel) 12.5 mg TIDP PRN PO ANXIETY; Start 12/19/16 at 14:30; Stop 01/18/17 at 14:29 Trazodone HCl (Desyrel) 50 mg QHSP PRN PO INSOMNIA Last administered on 01:08; Start 12/10/16 at 01:00; Stop 12/10/16 at 11:19; Status DC Trazodone HCl (Desyrel) 100 mg QHS PO Last administered on 12/13/16 21:27; Start 12/10/16 at 21:00; Stop 12/14/16 at 16:24; Status DC Trazodone HCl (Desyrel) 150 mg QHSP PRN PO insomnia Last administered on 22:01; Start 12/14/16 at 16:30; Stop 01/13/17 at 16:29 Trimethoprim/ Sulfamethoxazole (Bactrim Ds, Septra Ds 160mg/ 800mg) 1 tab Q12H PO Last administered on 12/18/16 12:01; Start 12/10/16 at 00:00; Stop 12/18/16 at 13:00; Status DC Venlafaxine HCl (Effexor Xr) 75 mg DAILY PO Last administered on 12/21/16t 08:01; Start 12/11/16 at 09:00; Stop 01/10/17 at 08:59 Allergies Coded Allergies: Cephalexin (Unverified Allergy, Unknown, HIVES, 12/09/16) Sarah Villagomez Dec 21, 2016 16:07
[2016-12-21 18:00] VITALS: BP 102/59
[2016-12-21] MEDS: traZODone 50 MG TAB PO PRN (22:00)
[2016-12-22 07:00] VITALS: BP 103/59
[2016-12-22] MEDS: NICOTINE 21MG/24HR 1 EA TRANSDERMAL TD SCH (08:07)
[2016-12-22] MEDS: VENLAFAXINE **XR** 75MG CAPSULE PO SCH (08:08)
[2016-12-22] MEDS: OSELTAMIVIR PHOSPHATE 75 MG CAP (TAMIFLU) PO SCH (08:08)
[2016-12-22] MEDS: NORCO, ANEXSIA 5/325MG TABLET (HYDROcodone/ACETAMINOPHEN) PO PRN ×2 (08:09→14:31)
[2016-12-22] MEDS ORDERED: OSEL75CA2 PO (08:28)
[2016-12-22] MEDS ORDERED: NICO21PAT TD (08:28)
[2016-12-22] MEDS ORDERED: TRAZO50TA PO (10:33)
[2016-12-22] MEDS ORDERED: VENL75CA PO (10:33)
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
== END 2016-12-22 17:07 | disposition home or self-care (01) | DRG 751 ==
LOC: M ED 16:41 → M PSY 22:40 → EEVIPCON 22:40 → M PSY 12-12 16:50
PROVIDERS: ADMIT Psychiatry & Neurology Psychiatry; ATTEND Psychiatry & Neurology Psychiatry
PROC: 0JB90ZZ Excision of Buttock Subcutaneous Tissue and Fascia, Open Approach (ICD-10-PCS; principal; 2016-12-11 08:00)
DX: F33.1 Major depressive disorder, recurrent, moderate (principal); L02.31 Cutaneous abscess of buttock; F10.21 Alcohol dependence, in remission; F41.9 Anxiety disorder, unspecified; B95.62 Methicillin resistant Staphylococcus aureus infection as the cause of diseases classified elsewhere; G43.909 Migraine, unspecified, not intractable, without status migrainosus; F17.210 Nicotine dependence, cigarettes, uncomplicated; J45.909 Unspecified asthma, uncomplicated; Z62.810 Personal history of physical and sexual abuse in childhood; Z62.811 Personal history of psychological abuse in childhood; Z88.1 Allergy status to other antibiotic agents; Z81.8 Family history of other mental and behavioral disorders

== ENCOUNTER 2017-07-15 05:05 | Emergency (ER) | payer MEDICAID, OTHER ==
[~2017-07-15] VITALS: Ht 162.6 cm; Wt 68.0 kg
[~2017-07-15 05:05] MED LIST: BACT800T5 PO; NICO21PAT TD; NORC1TAB4 PO; OSEL75CA2 PO; TRAZO50TA PO; VENL75CA2 PO
[2017-07-15] MEDS ORDERED: LR 1,000 ML IV ONE ×2 (06:45→09:00)
[2017-07-15 07:11] LABS: BASO % 0.3 % (0.0-1.0); EOS # 0.2 K/mm3 (0.0-0.50); EOS % 1.2 % (0.0-3.0); LARGE UNSTAINED CELL # 0.2 K/mm3 (0.0-0.4); LARGE UNSTAINED CELL % 1.7 % (0.0-4.0); LYMPH # 1.4 K/mm3 (1.5-4.5); LYMPH % 9.7 % (24.0-44.0); MEAN CORPUSCULAR HEMOGLOBIN 30.4 pg (27.0-33.0); MEAN CORPUSCULAR HGB CONC 33.3 g/dl (32.0-36.5); MEAN CORPUSCULAR VOLUME 91.1 fl (80.0-96.0); MONO # 0.7 K/mm3 (0.0-0.8); MONO % 5.9 % (0.0-5.0); NEUTROPHILS % 81.2 % (36.0-66.0); PLATELET COUNT, AUTOMATED 274 k/mm3 (150-450); RED CELL DISTRIBUTION WIDTH 12.8 % (11.5-14.5); WHITE BLOOD COUNT 12.3 K/mm3 (4.0-10.0)
--- NOTE | 2017-07-15 07:52 | REP ---
Clinical: Chest pain and fever . Comparison: 11/24/2016 . Technique: PA and lateral. Findings: The mediastinum and cardiac silhouette are normal. The lung moreno are clear and without acute consolidation, effusion, or pneumothorax. The skeletal structures are intact and normal. Impression: 1. No acute cardiopulmonary process. Signed by Xavier Sarabia MD 07/15/2017 07:44 A
[2017-07-15 07:56] LABS: ALBUMIN 3.7 GM/DL (3.2-5.2); ALBUMIN/GLOBULIN RATIO 1.09 (1.00-1.93); ALKALINE PHOSPHATASE 54 U/L (45-117); ALT/SGPT 148 U/L (12-78); ANION GAP 11 MEQ/L (8-16); AST/SGOT 59 U/L (15-37); BILIRUBIN,TOTAL 0.8 MG/DL (0.2-1.0); BLOOD UREA NITROGEN 11 MG/DL (7-18); CALCIUM LEVEL 8.6 MG/DL (8.5-10.1); CARBON DIOXIDE LEVEL 20 MEQ/L (21-32); CHLORIDE LEVEL 108 MEQ/L (98-107); CREATININE FOR GFR 0.74 MG/DL (0.55-1.02); GLOMERULAR FILTRATION RATE > 60.0 (>60); GLUCOSE, FASTING 94 MG/DL (70-105); POTASSIUM SERUM 3.8 MEQ/L (3.5-5.1); SODIUM LEVEL 139 MEQ/L (136-145); TOTAL PROTEIN 7.1 GM/DL (6.4-8.2)
[2017-07-15 10:26] LABS: METHADONE URINE NEGATIVE (NEGATIVE)
[2017-07-15] MEDS ORDERED: BACTRIM 160MG/800MG DS TAB PO ONE (10:30)
[2017-07-15] MEDS ORDERED: BACT800T5 PO (10:44)
[2017-07-15 10:57] VITALS: BP 108/57
== END 2017-07-15 10:59 | disposition home or self-care (01) ==
LOC: M ED 05:05
DX: N39.0 Urinary tract infection, site not specified (principal); F15.10 Other stimulant abuse, uncomplicated; B18.2 Chronic viral hepatitis C; Z72.0 Tobacco use

== ENCOUNTER → 2017-07-25 | Outpatient (CLI) | payer OTHER ==
[2017-07-25 13:57] LABS: MEAN CORPUSCULAR HEMOGLOBIN 30.6 pg (27.0-33.0); MEAN CORPUSCULAR HGB CONC 33.4 g/dl (32.0-36.5); MEAN CORPUSCULAR VOLUME 91.6 fl (80.0-96.0); RED CELL DISTRIBUTION WIDTH 12.5 % (11.5-14.5)
[2017-07-25 14:14] LABS: ALBUMIN 3.7 GM/DL (3.2-5.2); ALBUMIN/GLOBULIN RATIO 1.06 (1.00-1.93); ALKALINE PHOSPHATASE 54 U/L (45-117); ALT/SGPT 149 U/L (12-78); ANION GAP 7 MEQ/L (8-16); AST/SGOT 78 U/L (15-37); BILIRUBIN,TOTAL 0.4 MG/DL (0.2-1.0); BLOOD UREA NITROGEN 12 MG/DL (7-18); CALCIUM LEVEL 8.7 MG/DL (8.5-10.1); CARBON DIOXIDE LEVEL 28 MEQ/L (21-32); CHLORIDE LEVEL 102 MEQ/L (98-107); CREATININE FOR GFR 0.68 MG/DL (0.55-1.02); GLOMERULAR FILTRATION RATE > 60.0 (>60); GLUCOSE, FASTING 78 MG/DL (70-105); POTASSIUM SERUM 4.3 MEQ/L (3.5-5.1); SODIUM LEVEL 137 MEQ/L (136-145); TOTAL PROTEIN 7.2 GM/DL (6.4-8.2)
[2017-07-25 21:07] LABS: CONTROL LINE UCG INT CTR LINE PRESENT
--- NOTE | 2017-07-25 22:25 | ECGEPIP ---
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
== END ==
LOC: M LAB 12:59
PROVIDERS: ATTEND Family Medicine
DX: F11.20 Opioid dependence, uncomplicated (principal)

== ENCOUNTER 2017-07-30 23:38 | Emergency (ER) | payer OTHER ==
[~2017-07-30] VITALS: Ht 162.6 cm; Wt 65.5 kg
[2017-07-31] MEDS ORDERED: LORazepam 2 MG/ML VIAL (J2060) IM STA (01:38)
[2017-07-31] MEDS ORDERED: VENLAFAXINE 37.5 MG TAB PO ONE (01:45)
[2017-07-31 02:13] LABS: METHADONE URINE NEGATIVE (NEGATIVE)
[2017-07-31] MEDS ORDERED: LORazepam 2 MG/ML VIAL (J2060) IV STA ×2 (03:34→04:15)
[2017-07-31] MEDS ORDERED: NS 1,310 ML IV ONE (03:45)
[2017-07-31 04:08] LABS: BASO % 0.4 % (0.0-1.0); EOS # 0.2 K/mm3 (0.0-0.50); EOS % 2.3 % (0.0-3.0); LARGE UNSTAINED CELL # 0.4 K/mm3 (0.0-0.4); LARGE UNSTAINED CELL % 4.1 % (0.0-4.0); LYMPH # 3.3 K/mm3 (1.5-4.5); LYMPH % 32.2 % (24.0-44.0); MEAN CORPUSCULAR HEMOGLOBIN 30.9 pg (27.0-33.0); MEAN CORPUSCULAR HGB CONC 35.1 g/dl (32.0-36.5); MEAN CORPUSCULAR VOLUME 88.2 fl (80.0-96.0); MONO # 0.8 K/mm3 (0.0-0.8); NEUTROPHILS # 5.5 K/mm3 (1.8-7.7); PLATELET COUNT, AUTOMATED 306 k/mm3 (150-450); RED CELL DISTRIBUTION WIDTH 12.2 % (11.5-14.5); WHITE BLOOD COUNT 10.3 K/mm3 (4.0-10.0)
[2017-07-31 04:37] LABS: ANION GAP 13 MEQ/L (8-16); BLOOD UREA NITROGEN 23 MG/DL (7-18); CALCIUM LEVEL 8.1 MG/DL (8.5-10.1); CARBON DIOXIDE LEVEL 20 MEQ/L (21-32); CHLORIDE LEVEL 108 MEQ/L (98-107); CREATININE FOR GFR 0.96 MG/DL (0.55-1.02); GLOMERULAR FILTRATION RATE > 60.0 (>60); GLUCOSE, FASTING 80 MG/DL (70-105); POTASSIUM SERUM 3.7 MEQ/L (3.5-5.1); SODIUM LEVEL 141 MEQ/L (136-145)
[2017-07-31] MEDS ORDERED: BUPRENORPHINE/NALOXONE 2-0.5MG SUBLINGUAL TABLET(SUBOXONE) SL ONE (15:30)
[2017-07-31 17:03] VITALS: BP 106/72
[2017-08-01] MEDS ORDERED: BUPRENORPHINE/NALOXONE 2-0.5MG SUBLINGUAL TABLET(SUBOXONE) SL ONE (09:00)
== END 2017-07-31 17:06 | disposition home or self-care (01) ==
LOC: M ED 23:38
DX: F15.120 Other stimulant abuse with intoxication, uncomplicated (principal); F14.20 Cocaine dependence, uncomplicated; F31.9 Bipolar disorder, unspecified; Z79.899 Other long term (current) drug therapy; Z88.1 Allergy status to other antibiotic agents; F17.210 Nicotine dependence, cigarettes, uncomplicated
CPT/HCPCS: 80048; 80307; 82550; 83605; 85025; 96372; 96374; 96376; 99285; J2060

== ENCOUNTER 2017-09-19 20:08 | Inpatient (IN) | payer OTHER ==
[~2017-09-19] VITALS: Ht 162.6 cm; Wt 63.6 kg
[2017-09-19] MEDS ORDERED: ALL10TAB27 PO (20:26)
[2017-09-19] MEDS ORDERED: MIRA3350 PO (20:26)
[2017-09-19] MEDS ORDERED: VENL150C43 PO (20:26)
[2017-09-19] MEDS ORDERED: DOK100TA PO (20:26)
[2017-09-19] MEDS ORDERED: SENE8.6T3 PO (20:26)
[2017-09-19 22:13] LABS: MEAN CORPUSCULAR HEMOGLOBIN 29.5 pg (27.0-33.0); MEAN CORPUSCULAR HGB CONC 32.4 g/dl (32.0-36.5); MEAN CORPUSCULAR VOLUME 91.1 fl (80.0-96.0); PLATELET COUNT, AUTOMATED 226 10^3/uL (150-450); RED CELL DISTRIBUTION WIDTH 11.9 % (11.5-14.5); WHITE BLOOD COUNT 7.1 10^3/uL (4.0-10.0)
[2017-09-19 22:37] LABS: ALBUMIN 3.6 GM/DL (3.2-5.2); ALBUMIN/GLOBULIN RATIO 1.16 (1.00-1.93); ALKALINE PHOSPHATASE 54 U/L (45-117); ALT/SGPT 92 U/L (12-78); ANION GAP 5 MEQ/L (8-16); AST/SGOT 57 U/L (7-37); BILIRUBIN,DIRECT < 0.1 MG/DL (0.0-0.2); BILIRUBIN,TOTAL 0.3 MG/DL (0.2-1.0); BLOOD UREA NITROGEN 8 MG/DL (7-18); CALCIUM LEVEL 8.7 MG/DL (8.5-10.1); CARBON DIOXIDE LEVEL 30 MEQ/L (21-32); CHLORIDE LEVEL 106 MEQ/L (98-107); CREATININE FOR GFR 0.69 MG/DL (0.55-1.02); GLOMERULAR FILTRATION RATE > 60.0 (>60); GLUCOSE, FASTING 96 MG/DL (70-105); SODIUM LEVEL 141 MEQ/L (136-145); TOTAL PROTEIN 6.7 GM/DL (6.4-8.2)
[2017-09-19 22:40] LABS: METHADONE URINE POSITIVE (NEGATIVE)
[2017-09-19] MEDS ORDERED: VENL75CA47 PO (22:57)
[2017-09-19] MEDS ORDERED: EXCETAB80 PO (22:57)
[2017-09-19] MEDS ORDERED: MIRA33504 PO (22:57)
[2017-09-19] MEDS ORDERED: TRAZ1TAB14 PO (22:57)
[2017-09-19] MEDS ORDERED: METH10TA2 PO (22:57)
[2017-09-19] MEDS ORDERED: VITMTA PO (22:57)
[2017-09-19] MEDS ORDERED: PATIENT COMMENT (22:58)
[2017-09-19] MEDS ORDERED: VENTAER INH (22:58)
[2017-09-20] MEDS ORDERED: MIRALAX *UNIT DOSE* 17GM PACKET PO PRN (05:30)
[2017-09-20] MEDS ORDERED: MAALOX 30 ML SUSP *UDC PO PRN (05:30)
[2017-09-20] MEDS ORDERED: ACETAMINOPHEN TAB 650MG DOSE (2X325MG) PO PRN (05:30)
[2017-09-20] MEDS ORDERED: ALBUTEROL 90 MCG/ACT 8GM HFA INHALER INH PRN (05:45)
[2017-09-20 06:00] VITALS: BP 92/54
[2017-09-20] MEDS ORDERED: METH10CO PO (07:42)
[2017-09-20] MEDS: DOCUSATE SODIUM 100 MG CAP PO SCH (08:36)
[2017-09-20] MEDS: SENNA 8.6 MG TAB (SENOKOT) PO SCH ×2 (08:36→20:30)
[2017-09-20] MEDS: NICOTINE 21MG/24HR 1 EA TRANSDERMAL TD SCH (08:36)
[2017-09-20] MEDS: MULTIVITAMINS/MINERALS THERAP 1 TAB PO SCH (08:37)
[2017-09-20] MEDS: CETIRIZINE (ZyrTEC) 10 MG TAB PO SCH (08:37)
[2017-09-20] MEDS: VENLAFAXINE **XR** 75MG CAPSULE PO SCH (08:37)
[2017-09-20] MEDS: METHADONE 10 MG TAB (S0109) PO SCH (08:39)
[2017-09-20] MEDS ORDERED: VENLAFAXINE **XR** 75MG CAPSULE PO SCH (09:00)
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
--- NOTE | 2017-09-20 10:02 | HPEPDOC ---
[facility] Medical History & Physical Date of Admission Sep 19, 2017 History and Physical PCP: Brian Dowling MD ATTENDING: Dr. Puneet Salinas HPI: 37 yo F admitted to [facility] for unspecified depressive disorder, being medically examined today. Patient complains of numbness and tingling in her hands first thing in the morning. Right greater than left. 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 Intermittent wrist and hand pain. Denies any erythema or swelling. No joint swelling. Denies any fevers, chills, weakness, fatigue, JARRETT, CP, SOB, cough , palpitations, abdominal pain, N/V/D or changes in bowel or bladder habits. PMHx: Depression Anxiety Substance use. Methadone as per [facility]. Self-mutilation Allergic rhinitis Chronic constipation Insomnia Asthma History of migraine headaches PSHX: Tubal ligation D&C 2 SOCHX: Resides in: [facility] Marital Status: Single Kids: 3 Employment: Unemployed Tobacco use: One half pack per day ETOH: Denies Illicit Drugs: Patient states she has not been using any substances since on methadone. IV Drug Use: Denies Tattoos done unprofessionally: Denies FAMHX: Mother: Alive, arthritis Father: Unknown Siblings: Alive, well. One brother unknown. Children: Alive, well ROS: As noted in HPI, otherwise 11pt ROS of systems reviewed and remarkable only for LMP mid-August per patient. PE: GEN: 37 yo F, appears stated age. Well-nourished, well developed. No acute distress. Alert and oriented x 3. Pleasant, interactive. HEENT: Normocephalic, atraumatic. Pupils are equal, round, and reactive to light. Extraocular movements are intact. No nystagmus appreciated. Sclera are nonicteric. Conjunctiva without injection. Nose midline. Nasal turbinates without bogginess. EACs both patent BL. TMs both visualized and rodríguez with good cone of light, no bulging or erythema. No facial asymmetry. Moist mucous membranes. Dentition fair. Pharynx pink and moist, no cobblestoning. Neck supple , trachea midline. No lymphadenopathy or thyromegaly appreciated. CHEST: Regular rate and rhythm, +S1, +S2 LUNGS: Clear to auscultation bilaterally. No wheezes, rales, or rhonchi. Breathing appears symmetric and easy. Patient is speaking in full sentences. No accessory muscle use. ABD: Round, soft, non-tender, non-distended. +Bowel sounds throughout. No rebound or guarding. No costovertebral angle tenderness. EXT: Pulses 2+ bilaterally dorsalis pedis and radial. No lower extremity edema appreciated. SKIN: Sour John, dry, warm. Capillary refill <2sec. No rashes. Small superficial lacerations are noted on the forearms in various stages of healing. NEURO: Alert and oriented x 3. Cranial nerves III-XII are intact. No focal deficits appreciated. Tinel and Phalen positive bilaterally. EK07/25/17. Normal sinus rhythm Delayed anterior R wave progression No significant change when compared to prior tracing of 12/14/2016 A&P: 37 yo F admitted to [facility] for unspecified depressive disorder 1. Psych. Plan per Psychiatry. EKG on file. 2. Nicotine dependence. Patch available. 3. Borderline EKG. No cardiac signs or symptoms appreciated on exam, follow with PCP. 4. Follow up. With PCP on discharge. 5. Substance use. Management as per psychiatry. Methadone managed as per [facility]. 6. Superficial lacerations. Appear to be healing. Keep areas clean and dry. Monitor. 7. Allergic rhinitis. Continue Zyrtec 10 mg by mouth daily. 8. Chronic constipation. Continue Colace 200 mg by mouth daily, Senokot twice a day, MiraLAX 1 packet daily. MOM as needed. 9. Asthma. Continue albuterol 2 puffs every 4 hours as needed. 10. Bilateral paresthesia/hand pain. Possible carpal tunnel syndrome. Patient does not report any injury. Outpatient follow-up with PCP. Tylenol 650 mg every 6 hours as needed. Check vitamin B12 and folate. TSH is noted within normal limits. Check x-ray of hand and wrist bilaterally. 11. Add hCG to admission labs. 12. Staff member Jeannine DIALLO present throughout exam. Vital Signs Vital Signs Date Time Temp Pulse Resp B/P (MAP) Pulse Ox O2 Delivery O2 Flow Rate FiO2 09/20/17 08:39 18 09/20/17 06:00 97.5 60 92/54 (67) 97 09/19/17 20:09 Room Air Laboratory Data Labs 24H Laboratory Tests 2 09/19/17 21:57: Nucleated Red Blood Cells % (auto) 0.0, Anion Gap 5L, Glomerular Filtration Rate > 60.0, Calcium Level 8.7, Aspartate Amino Transf (AST/SGOT) 57H, Alanine Aminotransferase (ALT/SGPT) 92H, Alkaline Phosphatase 54, Total Bilirubin 0.3, Direct Bilirubin < 0.1, Total Protein 6.7, Albumin 3.6, Albumin/Globulin Ratio 1.16, Thyroid Stimulating Hormone (TSH) 1.570, Salicylates Level 2.9L, Urine Amphetamines Screen NEGATIVE, Urine Benzodiazepines Screen NEGATIVE, Urine Opiates Screen NEGATIVE, Urine Methadone Screen POSITIVEH, Acetaminophen Level < 2.0L, Urine Barbiturates Screen NEGATIVE, Urine Phencyclidine Screen NEGATIVE , Urine Cocaine Metabolite Screen NEGATIVE, Urine Cannabinoids Screen NEGATIVE, Ethyl Alcohol Level < 0.003 CBC/BMP Laboratory Tests 09/19/17 21:57 Red Blood Count 4.37, Mean Corpuscular Volume 91.1, Mean Corpuscular Hemoglobin 29.5, Mean Corpuscular Hemoglobin Concent 32.4, Red Cell Distribution Width 11.9 Home Medications Scheduled Cetirizine HCl (All Day Allergy) 10 Mg Tab, 10 MG PO DAILY Docusate Sodium (Dok) 100 Mg Tab, 200 MG PO DAILY Multivitamins *[facility] STOCKED* (Thera M Plus *[facility] STOCKED*) 1 Tab Tab, 1 TAB PO DAILY Senna (Senexon) 8.6 Mg Tab, 8.6 MG PO BID Trazodone HCl (Trazodone HCl) 150 Mg Tab, 150 MG PO QHS Venlafaxine HCl (Venlafaxine HCl ER) 75 Mg Capcr, 75 MG PO DAILY TAKES WITH 150MG FOR 225MG TOTAL Venlafaxine Hydrochloride (Venlafaxine HCl ER) 150 Mg Cap, 150 MG PO DAILY TAKES WITH 75MG FOR 225MG TOTAL Scheduled PRN (Methadone HCl) 10 Mg/Ml Con, 3.5 ML PO DAILY PRN for PAIN Acetaminophen/Aspirin/Caffein (Excedrin Migraine 250-250-65 mg) 1 Tab Tab, 2 TAB PO BID PRN for MIGRAINE Albuterol Sulfate (Ventolin Hfa) 108 Mcg/Act Aer, 216 MCG INH QID PRN for SHORTNESS OF BREATH Polyethylene Glycol (Miralax) 1 Pow Pow, 17 GM PO DAILY PRN for CONSTIPATION Allergies Coded Allergies: Cephalexin (Unverified Allergy, Unknown, HIVES, 12/09/16) Kaykay Echeverria Sep 20, 2017 10:02
[2017-09-20 11:18] LABS: CONTROL LINE HCG INT CTR LINE PRESENT
[2017-09-20 11:36] LABS: FOLATE 22.7 NG/ML (>5.4); VITAMIN B12 LEVEL 467 PG/ML (247-911)
--- NOTE | 2017-09-20 14:47 | REP ---
Clinical: Pain. Technique: AP, lateral, bilateral oblique views right and left wrist. Findings: The carpal bones, surrounding osseous structures, soft tissues, and joint spaces are normal. There is no evidence for acute fracture or dislocation. No subcutaneous emphysema or radiodense foreign body. Impression: Normal bilateral wrist series. Signed by Xavier Sarabia MD 09/20/2017 02:39 P
--- NOTE | 2017-09-20 14:47 | REP ---
Clinical: Pain. Technique: AP, lateral, bilateral oblique views of the right and left hand . Findings: The osseous structures and joint spaces are intact and normal. There is no evidence for acute fracture or dislocation. Surrounding soft tissues are unremarkable. No subcutaneous emphysema or radiodense foreign body. Impression: Normal bilateral hand radiograph series. Signed by Xavier Sarabia MD 09/20/2017 02:38 P
[2017-09-20 18:00] VITALS: BP 109/62
[2017-09-20] MEDS: traZODone 50 MG TAB PO PRN (20:30)
[2017-09-21 07:11] VITALS: BP 92/53
[2017-09-21] MEDS: DOCUSATE SODIUM 100 MG CAP PO SCH (08:27)
[2017-09-21] MEDS: METHADONE 10 MG TAB (S0109) PO SCH (08:27)
[2017-09-21] MEDS: SENNA 8.6 MG TAB (SENOKOT) PO SCH ×2 (08:27→21:01)
[2017-09-21] MEDS: MULTIVITAMINS/MINERALS THERAP 1 TAB PO SCH (08:27)
[2017-09-21] MEDS: CETIRIZINE (ZyrTEC) 10 MG TAB PO SCH (08:28)
[2017-09-21] MEDS: VENLAFAXINE **XR** 75MG CAPSULE PO SCH (08:28)
[2017-09-21] MEDS: NICOTINE 21MG/24HR 1 EA TRANSDERMAL TD SCH (08:28)
--- NOTE | 2017-09-21 15:10 | MHIPN ---
DATE OF SERVICE: 09/21/2017 HISTORY: 37-year-old female with history of depression and polysubstance dependency including opioids and marijuana. She was admitted for depression and suicidal ideation. MEDICATIONS: - Effexor XR 225 mg by mouth every morning - trazodone 150 mg by mouth nightly - methadone 30 mg by mouth daily as prescribed per methadone clinic SUBJECTIVE: "I feel about the same." OBJECTIVE: No major changes from yesterday. Patient continues depressed, somewhat anxious, sad, restricted facial expression, psychomotor retardation. Patient interacts minimally with other patients and staff. She is motivated for treatment. There is no evidence of psychotic symptoms. No auditory or visual hallucinations or delusions. Patient is able to contract for safety while in the hospital. Insight and judgment are limited. MENTAL STATUS EXAMINATION: Patient dressed in [facility]. Patient is cooperative, has fair eye contact. Speech is low and monotone. Mood is depressed and anxious. Affect is restricted. No evidence of delusions or hallucinations. 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 Patient is fully oriented. Associations are intact. Thinking is logical. Thought content is appropriate. Patient is able to contract for safety while in the hospital. Insight and judgment are limited. ASSESSMENT: 1. Depression. 2. Polysubstance dependency. 3. Suicidal ideation. PLAN: 1. Continue with Effexor XR 225 mg by mouth every morning. 2. Continue trazodone 150 mg by mouth nightly. 3. Continue methadone 30 mg by mouth daily as per methadone clinic. MTDD
[2017-09-21] MEDS: MOM 30ML SUSPENSION UDC PO PRN (17:32)
[2017-09-21 18:00] VITALS: BP_SYST 133; BP_SYST 98; BP_DIAS 56; BP_DIAS 87
[2017-09-21] MEDS: traZODone 50 MG TAB PO PRN (21:01)
[2017-09-22 07:00] VITALS: BP 104/62
[2017-09-22] MEDS: VENLAFAXINE **XR** 75MG CAPSULE PO SCH (08:12)
[2017-09-22] MEDS: MULTIVITAMINS/MINERALS THERAP 1 TAB PO SCH (08:12)
[2017-09-22] MEDS: METHADONE 10 MG TAB (S0109) PO SCH (08:13)
[2017-09-22] MEDS: CETIRIZINE (ZyrTEC) 10 MG TAB PO SCH (08:13)
[2017-09-22] MEDS: NICOTINE 21MG/24HR 1 EA TRANSDERMAL TD SCH (08:13)
--- NOTE | 2017-09-22 15:53 | MHIPN ---
DATE: 09/22/2017 HISTORY: 37-year-old female with history of depression and polysubstance dependency including opiates and marijuana. She was admitted for depression and suicidal ideation. MEDICATIONS: - Effexor 225 mg by mouth every morning - trazodone 150 mg by mouth nightly - methadone 30 mg by mouth daily as prescribed by the methadone clinic SUBJECTIVE: "I'm feeling better." OBJECTIVE: Patient continues depressed, but is improving. She is interacting better with other patients and staff. Patient is motivated for treatment and is going to all psychotherapeutic activities. She is denying side effect from the medication. There is no evidence of auditory or visual hallucinations or delusions. Patient's insight and judgment has improved. MENTAL STATUS EXAMINATION: Patient is dressed in [facility]. Patient is cooperative, has fair eye contact. Speech is slow and monotone, but improved. Mood is depressed and anxious, but also improved. Affect is less restricted. No evidence of delusions or hallucinations. Memory, attention, and concentration are fair. Patient is able to contract for safety while in the hospital. Insight and judgment is fair. ASSESSMENT: 1. Depression. 2. Polysubstance dependency. 3. Suicidal ideation. PLAN: 1. Continue Effexor XR 225 mg by mouth every morning. 2. Continue trazodone 150 mg by mouth nightly. 3. Continue methadone 30 mg by mouth daily.
[2017-09-22 18:00] VITALS: BP 100/59
[2017-09-22] MEDS: MOM 30ML SUSPENSION UDC PO PRN (19:14)
[2017-09-22] MEDS ORDERED: traZODone 50 MG TAB PO PRN (21:30)
[2017-09-22] MEDS: traZODone 50 MG TAB PO PRN (22:13)
[2017-09-23 06:44] VITALS: BP 92/57
[2017-09-23] MEDS: CETIRIZINE (ZyrTEC) 10 MG TAB PO SCH (08:12)
[2017-09-23] MEDS: VENLAFAXINE **XR** 75MG CAPSULE PO SCH (08:12)
[2017-09-23] MEDS: MULTIVITAMINS/MINERALS THERAP 1 TAB PO SCH (08:12)
[2017-09-23] MEDS: METHADONE 10 MG TAB (S0109) PO SCH (08:13)
[2017-09-23] MEDS: NICOTINE 21MG/24HR 1 EA TRANSDERMAL TD SCH (08:14)
--- NOTE | 2017-09-23 17:29 | MHIPNPDOC ---
[facility] [facility] Progress Note Progress Note DATE OF SERVICE: 09/23/17 HISTORY: 37-year-old female with history of depression and polysubstance dependency including opiates and marijuana. She was admitted for depression and suicidal ideation VITAL SIGNS: See below. NEW TEST RESULTS: N/A CURRENT MEDICATIONS: See below. MENTAL STATUS EXAMINATION: Patient is a 37 year old female, who is alert, cooperative, dressed in personal clothes, good eye contact Speech: Is Normal in tone, rate and volume. Language skills are Fair. Thought processes including: Intact. Thought content: Focused on her aches and pains, she says she has pain and it is probably secondary to carpal tunnel syndrome. Abstract reasoning, and computation: Not assessed at time. Description of associations: Good Description of abnormal or psychotic thoughts: Denies SI/Hi, denies a/V hallucinations, denies thought delusions. Judgment: Poor Insight: poor. Orientation: Oriented x 3 Recent and remote memory: Intact Attention span and concentration: good. Language: Normal. Fund of knowledge: Adequate. Mood: . Affect: . DIAGNOSES: 1. Depression. 2. Polysubstance dependency. 3. Suicidal ideation. PLAN: 1. Continue Effexor XR 225 mg by mouth every morning. 2. Continue trazodone 150 mg by mouth nightly. 3. Continue methadone 30 mg by mouth daily. MANAGEMENT PLAN: will continue on the same treatment plan TIME SPENT:20 minutes. Vital Signs Vital Signs Date Time Temp Pulse Resp B/P (MAP) Pulse Ox O2 Delivery O2 Flow Rate FiO2 09/23/17 08:13 16 09/23/17 06:44 97.7 65 92/57 (69) Room Air 09/20/17 06:00 97 Current Medications Current Medications Acetaminophen (Tylenol Tab) 650 mg Q6HP PRN PO HEADACHE or DISCOMFORT; Start 09/20/17 at 05:30; Stop 10/20/17 at 05:29 Al Hydrox/Mg Hydrox/Simethicone (Mylanta) 30 ml Q4HP PRN PO HEARTBURN/ INDIGESTION; Start 09/20/17 at 05:30; Stop 10/20/17 at 05:29 Albuterol Sulfate (Proventil, Ventolin Hfa) 2 puff QIDP PRN INH SHORTNESS OF BREATH; Start 09/20/17 at 05:45; Stop 10/20/17 at 05:44 Cetirizine HCl (ZyrTEC) 10 mg DAILY PO Last administered on 09/23/17 08:12; Start 09/20/17 at 09:00; Stop 10/20/17 at 08:59 Docusate Sodium (Colace) 200 mg DAILY PO Last administered on 09/21/17 08:27 ; Start 09/20/17 at 09:00; Stop 09/22/17 at 08:59; Status DC Home Med (Med Rec Complete!) ASDIRECTED XX ; Start 09/19/17 at 23:00; Stop at 23:01; Status DC Magnesium Hydroxide (Milk Of Magnesia) 30 ml DAILYPRN PRN PO CONSTIPATION Last administered on 09/22/17 19:14; Start 09/20/17 at 05:30; Stop 10/20/17 at 05 :29 Methadone HCl (Dolophine) 30 mg DAILY PO Last administered on 09/23/17 08:13 ; Start 09/20/17 at 09:00; Stop 09/27/17 at 08:59 Multivitamins (Theragram-M) 1 tab DAILY PO Last administered on 09/23/17 08: 12; Start 09/20/17 at 09:00; Stop 10/20/17 at 08:59 Nicotine (Nicoderm Cq 21mg) 1 patch DAILY TD Last administered on 09/21/17 08 :28; Start 09/20/17 at 09:00; Stop 10/20/17 at 08:59 Polyethylene Glycol (Miralax) 1 pkt DAILY PRN PO CONSTIPATION Last administered on 09/20/17 12:28; Start 09/20/17 at 05:30; Stop 09/22/17 at 05 :29; Status DC Senna (Senokot) 1 tab BID PO Last administered on 09/21/17 21:01; Start at 09:00; Stop 09/22/17 at 08:59; Status DC Trazodone HCl (Desyrel) 50 mg QHSP PRN PO INSOMNIA; Start 09/22/17 at 21:30; Stop 09/22/17 at 22:04; Status DC Trazodone HCl (Desyrel) 150 mg QHSP PRN PO INSOMNIA Last administered on 21:01; Start 09/20/17 at 05:30; Stop 09/22/17 at 05:29; Status DC Trazodone HCl (Desyrel) 150 mg QHSP PRN PO INSOMNIA Last administered on 22:13; Start 09/22/17 at 22:15; Stop 10/22/17 at 22:14 Venlafaxine HCl (Effexor Xr) 150 mg DAILY PO ; Start 09/20/17 at 09:00; Stop 10/20/17 at 08:59; Status UNV Venlafaxine HCl (Effexor Xr) 225 mg DAILY PO Last administered on 08:12; Start 09/20/17 at 09:00; Stop 10/20/17 at 08:59 Allergies Coded Allergies: Cephalexin (Unverified Allergy, Unknown, HIVES, 12/09/16) DELMY GOYAL MD Sep 23, 2017 17:29
[2017-09-23 18:00] VITALS: BP 118/70
[2017-09-23] MEDS: traZODone 50 MG TAB PO PRN (20:59)
[2017-09-24 06:00] VITALS: BP 108/61
[2017-09-24] MEDS: CETIRIZINE (ZyrTEC) 10 MG TAB PO SCH (08:04)
[2017-09-24] MEDS: METHADONE 10 MG TAB (S0109) PO SCH (08:04)
[2017-09-24] MEDS: MULTIVITAMINS/MINERALS THERAP 1 TAB PO SCH (08:04)
[2017-09-24] MEDS: VENLAFAXINE **XR** 75MG CAPSULE PO SCH (08:04)
[2017-09-24] MEDS: NICOTINE 21MG/24HR 1 EA TRANSDERMAL TD SCH (08:05)
[2017-09-24] MEDS: MOM 30ML SUSPENSION UDC PO PRN (14:31)
--- NOTE | 2017-09-24 15:12 | MHIPNPDOC ---
[facility] Progress Note Progress Note DATE OF SERVICE: 09/24/17 HISTORY: 37-year-old female with history of depression and polysubstance dependency including opiates and marijuana. She was admitted for depression and suicidal ideation Today, 09/24/2017 the patient complains of feeling nauseous because she recently took milk of magnesia. She complains about pain due to her carpal tunnel syndrome and she requests pain medications. This typewriter mechanic explained to her I I Only prescribed her ibuprofen 800 mg by mouth every 8 hours when necessary for pain and she agreed to that. She said that she was feeling very tired because she she hasn't been able to sleep because she has been in pain. VITAL SIGNS: See below. NEW TEST RESULTS: N/A CURRENT MEDICATIONS: See below. MENTAL STATUS EXAMINATION: Patient is a 37 year old female, dressed in personal clothes, cooperative, good eye contact, fair hygiene and grooming. Speech: Is Normal in tone, rate and volume. Language skills are Fair. Thought processes including: Coherent Thought content: Anxious thoughts about health issues (carpal tunnel syndrome and constipation) Abstract reasoning, and computation: Not assessed at time. Description of associations: Not loose Description of abnormal or psychotic thoughts: Denies SI/Hi, denies a/V hallucinations, denies thought delusions. Judgment: Poor Insight: poor. Orientation: Oriented x 3 Recent and remote memory: Intact Attention span and concentration: good. Language: Normal. Fund of knowledge: Adequate. Mood: Anxious. Affect: Anxious/constricted DIAGNOSES: 1. Depression. 2. Polysubstance dependency. 3. Suicidal ideation. PLAN: 1. Continue Effexor XR 225 mg by mouth every morning. 2. Continue trazodone 150 mg by mouth nightly. 3. Continue methadone 30 mg by mouth daily. MANAGEMENT PLAN: Will prescribe ibuprofen 800 mg by mouth every 8 hours when necessary for pain. TIME SPENT:20 minutes. Vital Signs Vital Signs Date Time Temp Pulse Resp B/P (MAP) Pulse Ox O2 Delivery O2 Flow Rate FiO2 09/24/17 08:04 18 09/24/17 06:00 97.2 60 108/61 (77) 09/23/17 06:44 Room Air 09/20/17 06:00 97 Current Medications Current Medications Acetaminophen (Tylenol Tab) 650 mg Q6HP PRN PO HEADACHE or DISCOMFORT; Start 09/20/17 at 05:30; Stop 10/20/17 at 05:29 Al Hydrox/Mg Hydrox/Simethicone (Mylanta) 30 ml Q4HP PRN PO HEARTBURN/ INDIGESTION; Start 09/20/17 at 05:30; Stop 10/20/17 at 05:29 Albuterol Sulfate (Proventil, Ventolin Hfa) 2 puff QIDP PRN INH SHORTNESS OF BREATH; Start 09/20/17 at 05:45; Stop 10/20/17 at 05:44 Cetirizine HCl (ZyrTEC) 10 mg DAILY PO Last administered on 09/24/17 08:04; Start 09/20/17 at 09:00; Stop 10/20/17 at 08:59 Docusate Sodium (Colace) 200 mg DAILY PO Last administered on 09/21/17 08:27 ; Start 09/20/17 at 09:00; Stop 09/22/17 at 08:59; Status DC Home Med (Med Rec Complete!) ASDIRECTED XX ; Start 09/19/17 at 23:00; Stop at 23:01; Status DC Magnesium Hydroxide (Milk Of Magnesia) 30 ml DAILYPRN PRN PO CONSTIPATION Last administered on 09/24/17 14:31; Start 09/20/17 at 05:30; Stop 10/20/17 at 05 :29 Methadone HCl (Dolophine) 30 mg DAILY PO Last administered on 09/24/17 08:04 ; Start 09/20/17 at 09:00; Stop 09/27/17 at 08:59 Multivitamins (Theragram-M) 1 tab DAILY PO Last administered on 09/24/17 08: 04; Start 09/20/17 at 09:00; Stop 10/20/17 at 08:59 Nicotine (Nicoderm Cq 21mg) 1 patch DAILY TD Last administered on 09/21/17 08 :28; Start 09/20/17 at 09:00; Stop 10/20/17 at 08:59 Polyethylene Glycol (Miralax) 1 pkt DAILY PRN PO CONSTIPATION Last administered on 09/20/17 12:28; Start 09/20/17 at 05:30; Stop 09/22/17 at 05 :29; Status DC Senna (Senokot) 1 tab BID PO Last administered on 09/21/17 21:01; Start at 09:00; Stop 09/22/17 at 08:59; Status DC Trazodone HCl (Desyrel) 50 mg QHSP PRN PO INSOMNIA; Start 09/22/17 at 21:30; Stop 09/22/17 at 22:04; Status DC Trazodone HCl (Desyrel) 150 mg QHSP PRN PO INSOMNIA Last administered on 21:01; Start 09/20/17 at 05:30; Stop 09/22/17 at 05:29; Status DC Trazodone HCl (Desyrel) 150 mg QHSP PRN PO INSOMNIA Last administered on 20:59; Start 09/22/17 at 22:15; Stop 10/22/17 at 22:14 Venlafaxine HCl (Effexor Xr) 150 mg DAILY PO ; Start 09/20/17 at 09:00; Stop 10/20/17 at 08:59; Status UNV Venlafaxine HCl (Effexor Xr) 225 mg DAILY PO Last administered on 08:04; Start 09/20/17 at 09:00; Stop 10/20/17 at 08:59 Allergies Coded Allergies: Cephalexin (Unverified Allergy, Unknown, HIVES, 12/09/16) DELMY GOYAL MD Sep 24, 2017 15:12
[2017-09-24] MEDS ORDERED: IBUPROFEN 800 MG TAB PO PRN (15:15)
[2017-09-24 18:00] VITALS: BP 114/82
[2017-09-24] MEDS: traZODone 50 MG TAB PO PRN (21:31)
[2017-09-25 06:00] VITALS: BP 91/54
[2017-09-25] MEDS: MULTIVITAMINS/MINERALS THERAP 1 TAB PO SCH (08:08)
[2017-09-25] MEDS: CETIRIZINE (ZyrTEC) 10 MG TAB PO SCH (08:08)
[2017-09-25] MEDS: METHADONE 10 MG TAB (S0109) PO SCH (08:08)
[2017-09-25] MEDS: VENLAFAXINE **XR** 75MG CAPSULE PO SCH (08:08)
[2017-09-25] MEDS: NICOTINE 21MG/24HR 1 EA TRANSDERMAL TD SCH (08:09)
--- NOTE | 2017-09-25 16:38 | MHDS ---
DATE OF ADMISSION: 09/19/2017 DATE OF DISCHARGE: 09/25/2017 HISTORY OF PRESENT ILLNESS: A 37-year-old female with history of polysubstance dependency and depression admitted to our unit on a 9.39 legal status. According to the record, the patient came to the emergency department (ED) after she attempted to kill herself by cutting. The patient stated that she wanted to kill herself. The patient reports that she has a lot of stressors and has been having difficulty coping with them. The patient is now following treatment at the methadone clinic. She says that she asked a friend to drive her because the Medicaid transportation is unreliable. She said that the friend started to make negative comments about her, such as "you are a methadone junkie," "you are never going to be anything." The patient says that she got very anxious, depressed, emotional, and grabbed a pocket knife and cut herself. The patient states that she has no support and has lots of family problems. She has been [facility] at [facility] and [facility] She says that Effexor was recently increased. She is taking 30 mg of methadone. She says that has been very helpful to control her opiate addiction. During the interview, there was no evidence of psychotic symptoms. No auditory or visual hallucinations. No delusions. The patient reports significant mood swings, feelings of hopelessness, helplessness, and low self-esteem. LABORATORY DATA AT ADMISSION: CBC was within normal limits. CMP was unremarkable except AST and ALT that are 57 and 92 respectively. TSH within normal limits. test was negative. Her urine drug screen was positive for methadone, rest negative, and blood alcohol level was negative. HOSPITAL COURSE: After the first evaluation, the patient was admitted and started on trazodone 150 mg by mouth at bedtime as needed for insomnia, Effexor XR 225 mg by mouth every morning, and methadone 30 mg by mouth daily as she was at the methadone clinic. With these medications, the patient was stabilized. The patient had no complications during this hospital admission. Her mood recovered slowly but steadily. The patient was motivated for treatment and was going to all psychotherapeutic activities. At the moment of discharge, the patient is in stable condition with no auditory or visual hallucinations, delusions, suicidal or homicidal ideation. The patient is motivated to continue her treatment in outpatient basis. MEDICATIONS AT DISCHARGE: - trazodone 150 mg by mouth at bedtime as needed for insomnia - Effexor XR 225 mg by mouth daily - methadone 30 mg by mouth daily to be followed at the methadone clinic MENTAL STATUS EXAMINATION AT DISCHARGE: The patient is dressed in [facility]. The patient is calm and cooperative. Her speech is clear, coherent with normal rate and is spontaneous. The patient has good eye contact. Mood is euthymic. Affect is appropriate and congruent with mood. The patient is oriented to time, place, person and situation, maintains attention and concentration correctly. Instant recall, recent and remote memory are intact. Thought processes are coherent, logical, and goal-directed. The patient does not have auditory or visual hallucinations. The patient does not have paranoid, persecutory, somatic, grandiose or mandaeism delusions. The patient denies suicidal or homicidal ideation. Insight and judgment are fair. DISCHARGE DIAGNOSES: AXIS I: Adjustment disorder with depressed and anxious mood. Polysubstance dependency. AXIS II: Deferred. AXIS III: Migraine headaches. INSTRUCTIONS TO THE PATIENT: The patient is to continue taking her medications as prescribed and followup appointments. She is advised to maintain absolute sobriety from drugs and alcohol. The patient has scheduled appointment for medication management, individual psychotherapy, and primary care physician.
== END 2017-09-25 11:07 | disposition home or self-care (01) | DRG 755 ==
LOC: M ED 20:08 → M ED INP 22:20 → M PSY 09-20 01:43
PROVIDERS: ADMIT Psychiatry & Neurology Psychiatry; ATTEND Psychiatry & Neurology Psychiatry
DX: F43.23 Adjustment disorder with mixed anxiety and depressed mood (principal); F19.20 Other psychoactive substance dependence, uncomplicated; J45.909 Unspecified asthma, uncomplicated; R94.31 Abnormal electrocardiogram [ECG] [EKG]; F17.210 Nicotine dependence, cigarettes, uncomplicated; Z91.5 Personal history of self-harm; Z98.51 Tubal ligation status; Z79.899 Other long term (current) drug therapy; Z88.1 Allergy status to other antibiotic agents; M25.541 Pain in joints of right hand; M25.542 Pain in joints of left hand

== ENCOUNTER → 2017-10-24 | Outpatient (REF) | payer OTHER ==
[~2017-10-24] MED LIST changes: +ALL10TAB27 PO; +DOK100TA PO; +EXCETAB80 PO; +METH10CO PO; +METH10TA2 PO; +MIRA3350 PO; +MIRA33504 PO; +PATIENT COMMENT; +SENE8.6T3 PO; +TRAZ1TAB14 PO; +VENL150C43 PO; +VENL75CA47 PO; +VENTAER INH; +VITMTA PO
[2017-10-24 15:41] LABS: BASO % 0.6 % (0.0-1.0); EOS # 0.4 10^3/uL (0.0-0.50); IMMATURE GRANULOCYTE % 0.2 % (0-0); LYMPH # 2.2 10^3/uL (1.5-4.5); MEAN CORPUSCULAR HEMOGLOBIN 29.5 pg (27.0-33.0); MEAN CORPUSCULAR HGB CONC 33.3 g/dl (32.0-36.5); MEAN CORPUSCULAR VOLUME 88.5 fl (80.0-96.0); MONO # 0.6 10^3/uL (0.0-0.8); MONO % 10.6 % (0.0-5.0); NEUTROPHILS # 2.1 10^3/uL (1.8-7.7); NEUTROPHILS % 39.6 % (36.0-66.0); PLATELET COUNT, AUTOMATED 225 10^3/uL (150-450); RED CELL DISTRIBUTION WIDTH 12.4 % (11.5-14.5); WHITE BLOOD COUNT 5.4 10^3/uL (4.0-10.0)
[2017-10-24 16:05] LABS: ALBUMIN 3.5 GM/DL (3.2-5.2); ALBUMIN/GLOBULIN RATIO 1.13 (1.00-1.93); ALKALINE PHOSPHATASE 54 U/L (45-117); ALT/SGPT 80 U/L (12-78); ANION GAP 4 MEQ/L (8-16); AST/SGOT 35 U/L (7-37); BILIRUBIN,TOTAL 0.3 MG/DL (0.2-1.0); BLOOD UREA NITROGEN 12 MG/DL (7-18); CALCIUM LEVEL 8.2 MG/DL (8.5-10.1); CARBON DIOXIDE LEVEL 31 MEQ/L (21-32); CHLORIDE LEVEL 107 MEQ/L (98-107); CREATININE FOR GFR 0.67 MG/DL (0.55-1.02); GLOMERULAR FILTRATION RATE > 60.0 (>60); GLUCOSE, FASTING 88 MG/DL (70-105); POTASSIUM SERUM 4.1 MEQ/L (3.5-5.1); SODIUM LEVEL 142 MEQ/L (136-145); TOTAL PROTEIN 6.6 GM/DL (6.4-8.2)
[2017-10-27 10:16] LABS: HEPATITIS C QUANTITATION 284610 IU/mL (.)
== END ==
LOC: M LAB REF 15:08
PROVIDERS: ATTEND Family Medicine Addiction Medicine
DX: B18.2 Chronic viral hepatitis C (principal); R20.2 Paresthesia of skin

== ENCOUNTER → 2017-12-18 | Outpatient (REF) | payer OTHER ==
[2017-12-18 14:29] LABS: HEPATITIS B SURFACE ANTIBODY NEGATIVE (POSITIVE)
[2017-12-22 00:06] LABS: ALPHA 2-MACROGLOBULIN 279 mg/dL (110-276); ALT 107 IU/L (0-40); APOLIPOPROTEIN A-1 135 mg/dL (116-209); FIBROSIS SCORE 0.16 (0.00-0.21); GGT 26 IU/L (0-60); HAPTOGLOBIN 76 mg/dL (34-200); HEPATITIS A IgG TOTAL Negative (Negative); HEPATITIS B CORE ANTIBODY IGG Negative (Negative); HEPATITIS C VIRUS GENOTYPE 3 (.); NECROINFLAM SCORE 0.54 (0.00-0.17); NECROINFLAMM GRADE A2-Moderate activity (.); TOTAL BILIRUBIN 0.2 mg/dL (0.0-1.2)
== END ==
LOC: M SFHCPLAZ 10:49
DX: B18.2 Chronic viral hepatitis C (principal)

== ENCOUNTER → 2018-01-02 | Outpatient (REF) | payer OTHER, MEDICAID ==
[2018-01-02 13:54] LABS: ALBUMIN 3.5 GM/DL (3.2-5.2); ALBUMIN/GLOBULIN RATIO 1.21 (1.00-1.93); ALKALINE PHOSPHATASE 63 U/L (45-117); ALT/SGPT 91 U/L (12-78); ANION GAP 8 MEQ/L (8-16); AST/SGOT 35 U/L (7-37); BILIRUBIN,TOTAL 0.2 MG/DL (0.2-1.0); BLOOD UREA NITROGEN 9 MG/DL (7-18); CALCIUM LEVEL 8.7 MG/DL (8.5-10.1); CARBON DIOXIDE LEVEL 26 MEQ/L (21-32); CHLORIDE LEVEL 108 MEQ/L (98-107); CREATININE FOR GFR 0.69 MG/DL (0.55-1.30); GLOMERULAR FILTRATION RATE > 60.0 (>60); GLUCOSE, FASTING 82 MG/DL (70-100); POTASSIUM SERUM 4.2 MEQ/L (3.5-5.1); SODIUM LEVEL 142 MEQ/L (136-145); TOTAL PROTEIN 6.4 GM/DL (6.4-8.2)
== END ==
LOC: M LAB REF 12:36
DX: B18.2 Chronic viral hepatitis C (principal)

== ENCOUNTER → 2018-01-03 | Outpatient (REF) | payer OTHER, MEDICAID | LOC: M LAB REF 12:30 | DX: B18.2 Chronic viral hepatitis C (principal) ==

== ENCOUNTER → 2018-01-15 | Outpatient (REF) | payer OTHER ==
[2018-01-15 14:04] LABS: ALBUMIN 3.6 GM/DL (3.2-5.2); ALBUMIN/GLOBULIN RATIO 1.13 (1.00-1.93); ALKALINE PHOSPHATASE 69 U/L (45-117); ALT/SGPT 91 U/L (12-78); AST/SGOT 37 U/L (7-37); BILIRUBIN,DIRECT 0.1 MG/DL (0.0-0.2); BILIRUBIN,TOTAL 0.4 MG/DL (0.2-1.0); TOTAL PROTEIN 6.8 GM/DL (6.4-8.2)
[2018-01-17 14:16] LABS: HEPATITIS C QUANTITATION 199300 IU/mL (.)
== END ==
LOC: M SFHCPLAZ 12:05
DX: B18.2 Chronic viral hepatitis C (principal)

== ENCOUNTER → 2018-02-22 | Outpatient (REF) | payer OTHER | LOC: M SFHCPLAZ 10:56 | DX: B18.2 Chronic viral hepatitis C (principal) ==

== ENCOUNTER → 2018-03-07 | Outpatient (REF) | payer OTHER ==
[2018-03-07 13:58] LABS: ALBUMIN 3.2 GM/DL (3.2-5.2); ALBUMIN/GLOBULIN RATIO 0.94 (1.00-1.93); ALKALINE PHOSPHATASE 75 U/L (45-117); ALT/SGPT 19 U/L (12-78); ANION GAP 5 MEQ/L (8-16); AST/SGOT 14 U/L (7-37); BILIRUBIN,TOTAL 0.3 MG/DL (0.2-1.0); BLOOD UREA NITROGEN 9 MG/DL (7-18); CALCIUM LEVEL 8.8 MG/DL (8.5-10.1); CARBON DIOXIDE LEVEL 29 MEQ/L (21-32); CHLORIDE LEVEL 108 MEQ/L (98-107); CREATININE FOR GFR 0.78 MG/DL (0.55-1.30); GLOMERULAR FILTRATION RATE > 60.0 (>60); GLUCOSE, FASTING 106 MG/DL (70-100); POTASSIUM SERUM 3.9 MEQ/L (3.5-5.1); SODIUM LEVEL 142 MEQ/L (136-145); TOTAL PROTEIN 6.6 GM/DL (6.4-8.2)
[2018-03-13 00:09] LABS: ALPHA 2-MACROGLOBULIN 267 mg/dL (110-276); ALT 14 IU/L (0-40); APOLIPOPROTEIN A-1 134 mg/dL (116-209); FIBROSIS SCORE 0.05 (0.00-0.21); GGT 10 IU/L (0-60); HAPTOGLOBIN 145 mg/dL (34-200); NECROINFLAM SCORE 0.03 (0.00-0.17); NECROINFLAMM GRADE A0-No activity (.); TOTAL BILIRUBIN 0.1 mg/dL (0.0-1.2)
== END ==
LOC: M LAB REF 12:26
DX: B18.2 Chronic viral hepatitis C (principal)

== ENCOUNTER → 2018-03-07 | Outpatient (REF) | payer OTHER ==
[2018-03-07 13:57] LABS: ALBUMIN 3.2 GM/DL (3.2-5.2); ALBUMIN/GLOBULIN RATIO 0.91 (1.00-1.93); ALKALINE PHOSPHATASE 77 U/L (45-117); ALT/SGPT 20 U/L (12-78); ANION GAP 6 MEQ/L (8-16); AST/SGOT 15 U/L (7-37); BILIRUBIN,TOTAL 0.2 MG/DL (0.2-1.0); BLOOD UREA NITROGEN 9 MG/DL (7-18); CALCIUM LEVEL 8.8 MG/DL (8.5-10.1); CARBON DIOXIDE LEVEL 28 MEQ/L (21-32); CHLORIDE LEVEL 108 MEQ/L (98-107); CHOLESTEROL LEVEL 207 MG/DL (<200); CHOLESTEROL RISK RATIO 4.312 (<5); CREATININE FOR GFR 0.79 MG/DL (0.55-1.30); GLOMERULAR FILTRATION RATE > 60.0 (>60); GLUCOSE, FASTING 105 MG/DL (70-100); HDL CHOLESTEROL 48 MG/DL (>40); NON-HDL-C 159 MG/DL; POTASSIUM SERUM 3.8 MEQ/L (3.5-5.1); SODIUM LEVEL 142 MEQ/L (136-145); TOTAL PROTEIN 6.7 GM/DL (6.4-8.2); TRIGLYCERIDES LEVEL 155 MG/DL (<150)
[2018-03-07 14:37] LABS: ESTIMATED AVERAGE GLUCOSE 100 MG/DL (60-110); HEMOGLOBIN A1c 5.1 %
== END ==
LOC: M LAB REF 12:28
DX: Z51.81 Encounter for therapeutic drug level monitoring (principal); Z79.899 Other long term (current) drug therapy

== ENCOUNTER → 2018-06-18 | Outpatient (CLI) | payer OTHER ==
[2018-06-18 13:44] LABS: ALBUMIN 3.5 GM/DL (3.2-5.2); ALBUMIN/GLOBULIN RATIO 1.03 (1.00-1.93); ALKALINE PHOSPHATASE 87 U/L (45-117); ALT/SGPT 17 U/L (12-78); AST/SGOT 8 U/L (7-37); BILIRUBIN,DIRECT < 0.1 MG/DL (0.0-0.2); BILIRUBIN,TOTAL 0.2 MG/DL (0.2-1.0); TOTAL PROTEIN 6.9 GM/DL (6.4-8.2)
[2018-06-20 00:07] LABS: HEPATITIS C QUANTITATION HCV Not Detected IU/mL (.)
== END ==
LOC: M LAB 10:26
DX: B18.2 Chronic viral hepatitis C (principal)
CPT/HCPCS: 80076

== ENCOUNTER → 2018-10-01 | Outpatient (REF) | payer MEDICAID ==
[2018-10-01 17:42] LABS: CHOLESTEROL LEVEL 220 MG/DL (<200); CHOLESTEROL RISK RATIO 4.782 (<5); HDL CHOLESTEROL 46 MG/DL (>40); LDL CHOLESTEROL 129 MG/DL (<100); NON-HDL-C 174 MG/DL; TRIGLYCERIDES LEVEL 223 MG/DL (<150)
[2018-10-01 17:52] LABS: VITAMIN B12 LEVEL 795 PG/ML (247-911)
[2018-10-01 18:10] LABS: ESTIMATED AVERAGE GLUCOSE 114 MG/DL (60-110); HEMOGLOBIN A1c 5.6 %
== END ==
LOC: M LABDRWAD 16:55
DX: Z79.899 Other long term (current) drug therapy (principal)

== ENCOUNTER → 2019-01-04 | Outpatient (CLI) | payer MEDICAID ==
[~2019-01-04] MED LIST changes: -ALL10TAB27 PO; +ALL10TAB28 PO
[2019-01-04 09:46] LABS: HCG, SERUM QUALITATIVE NEGATIVE (NEGATIVE)
[2019-01-04 09:55] LABS: ALBUMIN 3.5 GM/DL (3.2-5.2); ALT/SGPT 20 U/L (12-78); BILIRUBIN,TOTAL 0.2 MG/DL (0.2-1.0); BLOOD UREA NITROGEN 13 MG/DL (7-18); CARBON DIOXIDE LEVEL 29 MEQ/L (21-32); CHLORIDE LEVEL 104 MEQ/L (98-107); CHOLESTEROL LEVEL 241 MG/DL (<200); CHOLESTEROL RISK RATIO 6.694 (<5); GLOMERULAR FILTRATION RATE > 60.0 (>60); GLUCOSE, FASTING 93 MG/DL (70-100); HDL CHOLESTEROL 36 MG/DL (>40); LDL CHOLESTEROL 132 MG/DL (<100); NON-HDL-C 205 MG/DL; POTASSIUM SERUM 4.1 MEQ/L (3.5-5.1); SODIUM LEVEL 139 MEQ/L (136-145); TRIGLYCERIDES LEVEL 367 MG/DL (<150)
== END ==
LOC: M LAB 08:15
PROVIDERS: ATTEND Family Medicine Addiction Medicine
DX: R63.5 Abnormal weight gain (principal)